=== PATIENT | male | born 1940 | race Caucasian/White ===

== ENCOUNTER → 2016-12-19 | Outpatient (CLI) | payer OTHER ==
[~2016-12-19] MED LIST: AMIT25TA19 PO; AMIT50TA3 PO; ASPUNK PO; CLOP1TAB15 PO; CZR25 PO; DICL1GEL12 TOP; DICL3GEL TOP; GLC500 PO; IBUP-1105 PO; MELA1CAP PO; METO50TA7 PO; MISCCAP PO; MULT-884 PO; NITR0.4S UT; OMEG435C PO; POTA12PO5 PO; SIMV80TA2 PO; [UNRECOGNIZED DRUG - CODE] PO
[2016-12-19 13:40] LABS: BASO ABS # 0.05 K/uL (0-0.2); COMPLETE YES; EOS % 2.9 %; HEMATOCRIT 42.2 % (42-52); IG% 0.2 %; LYMPH % 31.2 %; LYMPH ABS # 1.52 K/uL (1.2-3.4); MEAN CELL VOLUME 94.6 fL (80-100); MEAN CORPUSCULAR HEMOGLOBIN 32.7 pg (25-34); MEAN CORPUSCULAR HGB CONC 34.6 g/dl (32-36); MEAN PLATELET VOLUME 9.5 fL (7.4-10.4); MONO % 7.4 %; NEUT % 57.3 %; PLATELET COUNT 255 K/uL (130-400); RED BLOOD COUNT 4.46 M/uL (4.7-6.1); WHITE BLOOD COUNT 4.87 K/uL (4.8-10.8)
[2016-12-19 13:44] LABS: ALT/SGPT 31 U/L (12-78); AST/SGOT 17 U/L (15-37); BLOOD UREA NITROGEN 14 mg/dl (7-18); BUN/CREATININE RATIO 15.4 (10-20); CALCIUM 9.6 mg/dl (8.5-10.1); CARBON DIOXIDE 26 mmol/L (21-32); CHLORIDE 106 mmol/L (98-107); CHOLESTEROL 132 mg/dl (0-200); CREATININE 0.92 mg/dl (0.60-1.40); GLUCOSE 76 mg/dl (70-99); POTASSIUM 4.2 mmol/L (3.5-5.1); SODIUM 141 mmol/L (136-145)
[2016-12-19 13:55] LABS: ALB/GLOB RATIO 1.4 (0.9-2); ALKALINE PHOSPHATASE 41 U/L (45-117); CHOLESTEROL/HDL RATIO 2.9; HDL CHOLESTEROL 45 mg/dl; LDL CHOLESTEROL CALCULATED 26 mg/dl; TRIGLYCERIDES 306 mg/dl (0-150); VERY LOW DENSITY LIPOPROT CALC 61 mg/dl
[2016-12-19 14:05] LABS: ESTIMATED AVERAGE GLUCOSE 100 mg/dl; HA1C FLAG Normal (Normal)
--- NOTE | 2016-12-25 09:38 | CODING QUERY MEDICAL NECESSITY ---
SUPPORTING DIAGNOSIS NEEDED A supporting diagnosis is required for the test/procedure performed on this patient in order for us to be reimbursed by the patient's insurance. Please provide a supporting diagnosis for the following test/procedure listed below next to the test name along with your signature. *If there is no additional diagnosis for this patient that would support the following test/procedure please document that below next to the test/procedure. Test(s)/Procedure(s) that require a supporting diagnosis: * GLYCATED HEMOGLOBIN DIAGNOSIS: * DOS: 12/19/16 Provider Signature: Date: Thank you Taniya Gomes Health Information Management Once completed, please kindly fax back to [phone] For questions please call [phone]
== END | disposition home or self-care (01) ==
LOC: C.LABBC 11:46
PROVIDERS: ATTEND Internal Medicine Geriatric Medicine
DX: I25.10 Atherosclerotic heart disease of native coronary artery without angina pectoris (principal); E78.5 Hyperlipidemia, unspecified; M19.90 Unspecified osteoarthritis, unspecified site; I10 Essential (primary) hypertension

== ENCOUNTER 2017-01-27 09:58 | Emergency (ER) | payer OTHER ==
[~2017-01-27] VITALS: Ht 167.6 cm; Wt 97.1 kg
[~2017-01-27 09:58] MED LIST changes: -AMIT50TA3 PO; -CZR25 PO; -DICL3GEL TOP
[2017-01-27 10:03] VITALS: TEMP 36.3; Ht 167.6 cm; Wt 97.1 kg
[2017-01-27 10:41] LABS: BASO % 0.9 %; BASO ABS # 0.04 K/uL (0-0.2); COMPLETE YES; EOS % 2.6 %; HEMATOCRIT 41.7 % (42-52); LYMPH % 33.7 %; LYMPH ABS # 1.44 K/uL (1.2-3.4); MEAN CELL VOLUME 92.7 fL (80-100); MEAN CORPUSCULAR HGB CONC 34.5 g/dl (32-36); MEAN PLATELET VOLUME 9.1 fL (7.4-10.4); MONO % 8.4 %; NEUT % 54.4 %; PLATELET COUNT 231 K/uL (130-400); WHITE BLOOD COUNT 4.27 K/uL (4.8-10.8)
[2017-01-27] MEDS ORDERED: CZR25 PO (11:01)
[2017-01-27] MEDS ORDERED: DICL3GEL TOP (11:01)
[2017-01-27] MEDS ORDERED: AMIT50TA3 PO (11:01)
[2017-01-27 11:02] LABS: ALT/SGPT 38 U/L (12-78); BLOOD UREA NITROGEN 12 mg/dl (7-18); BUN/CREATININE RATIO 13.1 (10-20); CALCIUM 9.2 mg/dl (8.5-10.1); CARBON DIOXIDE 26 mmol/L (21-32); CHLORIDE 105 mmol/L (98-107); CREATININE 0.93 mg/dl (0.60-1.40); GLUCOSE 86 mg/dl (70-99); POTASSIUM 4.1 mmol/L (3.5-5.1); SODIUM 141 mmol/L (136-145)
--- NOTE | 2017-01-27 11:04 | DIAGNOSTIC IMAGING REPORT ---
SINGLE VIEW CHEST CLINICAL HISTORY: Atypical chest pain. FINDINGS: An AP, portable, upright chest radiograph is obtained. No prior studies are available for comparison at the time of dictation. The examination is degraded by portable technique and patient rotation. The heart is enlarged and there is atherosclerotic calcification with uncoiling of the thoracic aorta. The pulmonary vasculature is noncongested. There is bibasilar atelectasis. The lungs and pleural spaces are otherwise clear. No pneumothorax is seen. The skeletal structures are osteopenic. The bony thorax is grossly intact. IMPRESSION: Cardiac enlargement with no acute cardiopulmonary abnormality. Electronically signed by: Jose Francisco Dale M.D. 01/27/2017 11:03 AM Dictated Date/Time: 01/27/2017 11:01 AM
[2017-01-27 11:07] LABS: ALKALINE PHOSPHATASE 41 U/L (45-117); AST/SGOT 21 U/L (15-37); CKMB/CK RATIO 2.4 (0-3.0)
[2017-01-27 13:02] VITALS: BP 139/94; PULSE 69; O2SAT 93
--- NOTE | 2017-01-27 13:39 | EMERGENCY ROOM VISIT NOTE ---
History Report prepared by Juhi: Dayana Arredondo Under the Supervision of: Dr. Josey Solorzano D.O. First contact with patient: 10:12 Chief Complaint: CARDIAC ASSESSMENT Stated Complaint: CHEST PAIN Nursing Triage Summary: Triage Note: Pt reports he has slight pain in his chest at approx 0900 today and took 1 nitro at home. pt reports hx of two stents. History of Present Illness The patient is a 76 year old male who presents to the Emergency Room with complaints of resolved chest pain which started this morning. He reports that he was vacuuming when he felt 2 sharp pains in his chest around 0900, which was followed by discomfort in his chest. At the worse, he rates his discomfort at a 4/10. He took a nitro at 0915, which lessened his discomfort, and decided to present to the ED. He rates his discomfort upon arrival at the hospital as a 2/ 10. He is currently experiencing no chest discomfort. He reports that the last time he took a nitro was 15 years ago. He has had 2 stents placed in the early and has had no hospitalizations for his heart since. He reports that he regularly works out and experiences no discomfort with exertion. He denies any nausea, diaphoresis, fever, chills, cough, abdominal pain, or increased swelling of the hands or feet. He is on blood thinners. He has had a negative treadmill stress test with Dr. Encarnacion in the last 6 months. Source of History: patient Onset: 0900 this morning Position: chest Symptom Intensity: 4/10 at worst Quality: other (sharp, then discomfort) Timing: resolved Associated Symptoms: No abdominal pain, No chills, No cough, No diaphoresis , No fevers, No nausea Note: Pt denies increased swelling of the hands or feet. Review of Systems See HPI for pertinent positives & negatives. A total of 10 systems reviewed and were otherwise negative. Past Medical & Surgical Medical Problems: (1) CAD (coronary artery disease) (2) Cervical radiculopathy (3) Dyslipidemia (4) HTN (hypertension) (5) Lumbar radiculopathy (6) Osteoarthritis (7) Prostate cancer Surgical Problems: (1) History of angioplasty (2) History of hemorrhoidectomy Family History Diabetes mellitus Heart disease Hypertension Social History Smoking Status: Never Smoker Alcohol Use: occasionally Marital Status: Housing Status: lives with family Occupation Status: retired Current/Historical Medications Scheduled Amitriptyline Hcl (Amitriptyline Hcl), 50 MG PO DAILY Aspirin (Aspirin Unknown Dose), 81 MG PO DAILY Clopidogrel (Plavix), 75 MG PO DAILY Diclofenac Sodium (Actinic Ker (Solaraze), 0.5 GM TOP BID Ibuprofen (Ibuprofen), 400 MG PO HS Losartan Potassium (Losartan Potassium), 25 MG PO DAILY Metformin Hcl (Glucophage *), 1,000 MG PO BID Metoprolol Succ (Toprol Xl) (Toprol-Xl), 50 MG PO DAILY Misc Natural Products (Saw [place] Plus), 2 CAP PO DAILY Multiple Vitamin (Multi Vitamin Daily), PO DAILY Nitroglycerin (Nitrostat), 0.4 MG UT PRN [place]-3 Fatty Acids (Fish Oil Concentrate), 1 CAP PO DAILY Potassium Chloride (Klor-Con), 20 MEQ PO DAILY Simvastatin (Zocor), 80 MG PO QAM Scheduled PRN Melatonin (Melatonin), PO HS PRN for Sleep Allergies Coded Allergies: Niacin (Unverified Allergy, Mild, FROM MED RECORD DR SIMS, 01/27/17) Lactose (Unverified Allergy, Unknown, MED RECORD, 01/27/17) Physical Exam Vital Signs Date Time Temp Pulse Resp B/P Pulse Ox O2 Delivery O2 Flow Rate FiO2 01/27/17 13:02 69 18 139/94 93 01/27/17 12:09 69 01/27/17 11:02 72 20 122/95 94 Room Air 01/27/17 10:12 72 01/27/17 10:03 36.3 74 18 154/94 96 Room Air Physical Exam HEENT: Head - normocephalic and atraumatic Pupils are equal, round, and reactive to light. Extraocular eye muscles are intact, and sclera are anicteric. Nose - moist nasal mucosa without discharge. Mouth - moist buccal mucosa. Oropharynx is nonerythematous and there is no tonsillar exudate or edema noted. Neck: Supple; no JVD, nuchal rigidity, cervical lymphadenopathy, or auscultated bruits. Heart: Regular rate and rhythm. There is a normal S1 and S2 with no murmurs, clicks, or gallops appreciated. Lungs: Clear to auscultation bilaterally with no wheezes, rales, or rhonchi. Abdomen: Soft, completely nontender, nondistended, with good bowel sounds. There are no palpable pulsatile masses or hepatosplenomegaly. There is no guarding, rigidity, or rebound noted. Extremities: No evidence of cyanosis, clubbing, or edema. There are easily palpable peripheral pulses. Skin: warm and dry with good turgor and no rashes. Medical Decision & Procedures ER Provider Diagnostic Interpretation: X-ray results as stated below per interpretation by me and the radiologist: SINGLE VIEW CHEST CLINICAL HISTORY: Atypical chest pain. FINDINGS: An AP, portable, upright chest radiograph is obtained. No prior studies are available for comparison at the time of dictation. The examination is degraded by portable technique and patient rotation. The heart is enlarged and there is atherosclerotic calcification with uncoiling of the thoracic aorta. The pulmonary vasculature is noncongested. There is bibasilar atelectasis. The lungs and pleural spaces are otherwise clear. No pneumothorax is seen. The skeletal structures are osteopenic. The bony thorax is grossly intact. IMPRESSION: Cardiac enlargement with no acute cardiopulmonary abnormality. Electronically signed by: Jose Francisco Dale M.D. 01/27/2017 11:03 AM Dictated Date/Time: 01/27/2017 11:01 AM Laboratory Results 01/27/17 10:20 Red Blood Count 4.50, Mean Corpuscular Volume 92.7, Mean Corpuscular Hemoglobin 32.0, Mean Corpuscular Hemoglobin Concent 34.5, Mean Platelet Volume 9.1, Neutrophils (%) (Auto) 54.4, Lymphocytes (%) (Auto) 33.7, Monocytes (%) (Auto) 8.4, Eosinophils (%) (Auto) 2.6, Basophils (%) (Auto) 0.9, Neutrophils # (Auto) 2.32, Lymphocytes # (Auto) 1.44, Monocytes # (Auto) 0.36, Eosinophils # (Auto) 0.11, Basophils # (Auto) 0.04 01/27/17 10:20 Test 01/27/17 10:20 01/27/17 11:50 White Blood Count 4.27 K/uL (4.8-10.8) Red Blood Count 4.50 M/uL (4.7-6.1) Hemoglobin 14.4 g/dL (14.0-18.0) Hematocrit 41.7 % (42-52) Mean Corpuscular Volume 92.7 fL (80-100) Mean Corpuscular Hemoglobin 32.0 pg (25-34) Mean Corpuscular Hemoglobin Concent 34.5 g/dl (32-36) Platelet Count 231 K/uL (130-400) Mean Platelet Volume 9.1 fL (7.4-10.4) Neutrophils (%) (Auto) 54.4 % Lymphocytes (%) (Auto) 33.7 % Monocytes (%) (Auto) 8.4 % Eosinophils (%) (Auto) 2.6 % Basophils (%) (Auto) 0.9 % Neutrophils # (Auto) 2.32 K/uL (1.4-6.5) Lymphocytes # (Auto) 1.44 K/uL (1.2-3.4) Monocytes # (Auto) 0.36 K/uL (0.11-0.59) Eosinophils # (Auto) 0.11 K/uL (0-0.5) Basophils # (Auto) 0.04 K/uL (0-0.2) RDW Standard Deviation 42.1 fL (36.4-46.3) RDW Coefficient of Variation 12.4 % (11.5-14.5) Immature Granulocyte % (Auto) 0.0 % Immature Granulocyte # (Auto) 0.00 K/uL (0.00-0.02) Anion Gap 10.0 mmol/L (3-11) Est Creatinine Clear Calc Drug Dose 76.0 ml/min Estimated GFR () 93.4 Estimated GFR (Non- 80.6 BUN/Creatinine Ratio 13.1 (10-20) Calcium Level 9.2 mg/dl (8.5-10.1) Total Bilirubin 0.7 mg/dl (0.2-1) Direct Bilirubin 0.1 mg/dl (0-0.2) Aspartate Amino Transf (AST/SGOT) 21 U/L (15-37) Alanine Aminotransferase (ALT/SGPT) 38 U/L (12-78) Alkaline Phosphatase 41 U/L (45-117) Total Creatine Kinase 68 U/L (39-308) Creatine Kinase MB 1.6 ng/ml (0.5-3.6) Creatine Kinase MB Ratio 2.4 (0-3.0) Pro-B-Type Natriuretic Peptide 67 pg/ml (0-900) Total Protein 7.0 gm/dl (6.4-8.2) Albumin 4.0 gm/dl (3.4-5.0) Lipase 401 U/L (73-393) Troponin I < 0.015 ng/ml (0-0.045) Laboratory results per my review. ECG Indication: chest pain Rate (beats per minute): 73 Rhythm: normal sinus Findings: no acute ischemic change, no ectopy Comparison ECG Date: October 16, 2003 Change: no significant change ED Course 1022: The patient was evaluated in room A12. A complete history and physical examination were performed. Nursing notes and previous electronic medical records were reviewed. IV lock was established and labs were drawn as above. The patient had a twelve-lead EKG and chest x-ray as described above. 1130: I reevaluated the patient. He is still symptom free. A repeat troponin will be taken in 20 minutes. 1245: I reassessed the patient. He feels fine. Troponin remains negative. I discussed the results and treatment plan with him. He verbalized understanding and agreement. He will be discharged home. Medical Decision The patient is a 76 year old male who presents to the ED with chest discomfort. Differential diagnosis includes angina, ACS, STEMI, GERD, costochondritis, pleurisy. Labs: Normal WBC count. Stable H & H. Lipase mildly elevated at 401. LFTs are normal. Renal function normal. Cardiac enzymes negative. Repeat troponin is negative. This is a 76-year-old male patient who presents to the emergency department with left-sided chest pain. The patient denies any other recent episodes of chest discomfort. 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 The patient had 2 negative troponins. The patient is his EKG is unchanged. I have asked the patient to follow-up with Dr. Encarnacion this week. If the patient has further episodes of chest discomfort, he was directed to use his nitroglycerin and return to the emergency department. Impression Primary Impression: Left sided chest pain Scribe Attestation The scribe's documentation has been prepared under my direction and personally reviewed by me in its entirety. I confirm that the note above accurately reflects all work, treatment, procedures, and medical decision making performed by me. Departure Information Dispostion Home / Self-Care Referrals Oral Sims M.D. (PCP) Forms IMPORTANT VISIT INFORMATION Patient Instructions ED Chest Pain Atypical [facility] Cause, [facility] Additional Instructions Rest. If chest pain or pressure starts again, take Nitro every 5 minutes. Up to 3. If pain continues, call 911. Follow up with Dr. Encarnacion this week.
== END 2017-01-27 13:03 | disposition home or self-care (01) ==
LOC: C.EDB 09:59 → C.EDA 13:03
DX: R07.9 Chest pain, unspecified (principal); I25.10 Atherosclerotic heart disease of native coronary artery without angina pectoris; I10 Essential (primary) hypertension; E78.5 Hyperlipidemia, unspecified; M54.12 Radiculopathy, cervical region; M54.16 Radiculopathy, lumbar region; M19.90 Unspecified osteoarthritis, unspecified site; Z98.61 Coronary angioplasty status; Z79.02 Long term (current) use of antithrombotics/antiplatelets; Z79.1 Long term (current) use of non-steroidal anti-inflammatories (NSAID); Z79.82 Long term (current) use of aspirin; Z79.84 Long term (current) use of oral hypoglycemic drugs; Z79.899 Other long term (current) drug therapy; Z82.49 Family history of ischemic heart disease and other diseases of the circulatory system; Z83.3 Family history of diabetes mellitus

== ENCOUNTER → 2017-02-25 | Outpatient (CLI) | payer OTHER ==
[~2017-02-25] MED LIST changes: -AMIT25TA19 PO; +AMIT50TA3 PO; +CZR25 PO; -DICL1GEL12 TOP; +DICL3GEL TOP; -[UNRECOGNIZED DRUG - CODE] PO
--- NOTE | 2017-03-04 11:45 | CODING QUERY MEDICAL NECESSITY ---
CQSUPPORTING DIAGNOSIS NEEDED A supporting diagnosis is required for the test/procedure performed on this patient in order for us to be reimbursed by the patient's insurance. Please provide a supporting diagnosis for the following test/procedure listed below next to the test name along with your signature. *If there is no additional diagnosis for this patient that would support the following test/procedure please document that below next to the test/procedure. Test(s)/Procedure(s) that require a supporting diagnosis: DOS 02/25/17 PROSTATE SPECIFIC TEST (PSA ) Provider Signature: Date: Thank you Fernanda Wen Health Information Management Once completed, please kindly fax back to [phone] For questions please call [phone]
== END | disposition home or self-care (01) ==
LOC: C.LABBC 13:43
PROVIDERS: ATTEND Urology
DX: R39.9 Unspecified symptoms and signs involving the genitourinary system (principal); C61 Malignant neoplasm of prostate

== ENCOUNTER → 2017-06-18 | Outpatient (CLI) | payer OTHER ==
[2017-06-18 13:52] LABS: BLOOD UREA NITROGEN 15 mg/dl (7-18); BUN/CREATININE RATIO 16.4 (10-20); CALCIUM 9.4 mg/dl (8.5-10.1); CARBON DIOXIDE 23 mmol/L (21-32); CHLORIDE 108 mmol/L (98-107); CHOLESTEROL 115 mg/dl (0-200); GLUCOSE 80 mg/dl (70-99); POTASSIUM 3.9 mmol/L (3.5-5.1); SODIUM 141 mmol/L (136-145); TRIGLYCERIDES 237 mg/dl (0-150); VERY LOW DENSITY LIPOPROT CALC 47 mg/dl
[2017-06-18 13:55] LABS: CHOLESTEROL/HDL RATIO 2.9; HDL CHOLESTEROL 39 mg/dl; LDL CHOLESTEROL CALCULATED 29 mg/dl
== END | disposition home or self-care (01) ==
LOC: C.LABBC 12:00
PROVIDERS: ATTEND Internal Medicine Geriatric Medicine
DX: I10 Essential (primary) hypertension (principal)

== ENCOUNTER → 2017-12-03 | Outpatient (CLI) | payer OTHER | END | disposition home or self-care (01) | LOC: C.LABBC 09:43 | PROVIDERS: ATTEND Urology | DX: C61 Malignant neoplasm of prostate (principal) ==

== ENCOUNTER → 2017-12-19 | Outpatient (CLI) | payer OTHER ==
[2017-12-19 17:35] LABS: BLOOD UREA NITROGEN 13 mg/dl (7-18); CREATININE 0.98 mg/dl (0.60-1.40)
== END | disposition home or self-care (01) ==
LOC: C.LABBC 13:23
PROVIDERS: ATTEND Urology
DX: R97.20 Elevated prostate specific antigen [PSA] (principal)

== ENCOUNTER → 2017-12-30 | Outpatient (CLI) | payer OTHER ==
[~2017-12-30] MED LIST changes: +GADAVIST IV PRN; -METO50TA7 PO; +METO50TA8 PO
--- NOTE | 2017-12-30 15:31 | DIAGNOSTIC IMAGING REPORT ---
PROSTATE MRI COMBO CLINICAL HISTORY: 77 years-old Male presenting with prostate cancer, Needles 3+3 at the left apex from biopsy on 08/11/2015, Elevated PSA. PSA 5.92 ng/mL. TECHNIQUE: Multisequence, multiplanar MR imaging of the prostate was performed before and after the administration of intravenous contrast. Additional postprocessing was performed on a separate [employer] workstation by the radiologist for 3-D volumetric segmentation of the prostate and contouring of region(s) of interest (JULIANNA) for targeting. IV contrast: 9 mL of Gadavist. COMPARISON: None. FINDINGS: Prostate: The prostate measures 6.3 x 4.5 x 5.8 cm(DynaCAD prostate boundary segmentation volume 81 mL). Moderate changes of benign prostatic hyperplasia. Precontrast T1 weighted imaging demonstrates no evidence of intrinsic T1 hyperintensity to suggest hemorrhage. Atrophy of the peripheral zone. Multiple exophytic BPH nodules protrude into the peripheral zone at the prostatic base. Minimal linear T2 hypointense bands in the posterior lateral peripheral zone at the apex are nonspecific and may represent chronic inflammation or scarring. No suspicious lesion is apparent in the transition or peripheral zones. Seminal vesicles normal. Bladder: Bladder wall thickening likely indicating chronic outlet obstruction. Bowel: Visualized portion of the rectum normal. Peritoneum: No free fluid in the pelvis. Lymph nodes: No lymphadenopathy in the visualized portion of the pelvis. Vasculature: Iliac vessels patent. Abdominal wall: Normal. Osseous structures: Normal bone marrow signal intensity. IMPRESSION: 1. No suspicious lesion identified in the peripheral or transition zones. The prostate has been segmented for fusion biopsy. 2. Benign prostatic hyperplasia with evidence of chronic bladder outlet obstruction. Electronically signed by: Santos Beard M.D. 12/30/2017 3:30 PM Dictated Date/Time: 12/30/2017 3:24 PM
== END | disposition home or self-care (01) ==
LOC: C.MRIBC 13:22
PROVIDERS: ATTEND Urology
DX: C61 Malignant neoplasm of prostate (principal); R97.20 Elevated prostate specific antigen [PSA]

== ENCOUNTER → 2018-03-25 | Day surgery (SDC) | payer OTHER ==
[2018-03-14 13:42] VITALS: Ht 166.4 cm; Wt 93.6 kg
[~2018-03-25] VITALS: Ht 166.4 cm; Wt 93.6 kg
[~2018-03-25] MED LIST changes: +ASPI81TA28 PO; -ASPUNK PO; +BCTCR/30 EXT; -CZR25 PO; -DICL3GEL TOP; -GADAVIST IV PRN; -GLC500 PO; +LIDOCAINE HCL 2% 2 ML VIAL (20MG/ML) ONE; +LOSA50TA6 PO; +METF500T5 PO; +POTA-639 PO; -POTA12PO5 PO; +PROPOFOL IV EMULSION 10 MG/ML 20 ML VIAL ONE
--- NOTE | 2018-03-25 09:48 | Endo History and Physical ---
History & Physical Date of Service: March 25, 2018. Chief Complaint: Hx polyps Referring Physician: Oral Sims History of Present Illness 77 yo CM who presents for colonoscopy secondary to history of colon polyps. Past Medical History Angioplasty/Stent, Cancer, Hypertension Past Surgical History Hx Cardiac Surgery: Yes (CARDIAC CATH, CARDIAC STENT X2) Hx Internal Defibrillator: No Hx Pacemaker: No Hx Abdominal Surgery: No Hx of Implantable Prosthesis: No Hx Post-Op Nausea and Vomiting: No Hx Cancer Surgery: No Hx Thoracic Surgery: No Hx Orthopedic: No Hx Urinary Tract Surgery: No Social History Smoking Status: Never Smoker Hx Substance Use: No Hx Alcohol Use: Yes (Scotch 1-2 time per week) Allergies Coded Allergies: Niacin (Verified Allergy, Mild, FROM MED RECORD DR SIMS, 03/14/18) Lactose (Verified Allergy, Unknown, MED RECORD, 03/14/18) Current Medications Reported Home Medications Medications Dose Route/Sig Max Daily Dose Days Date Category Dose Instructions Klor-Con (Potassium Chloride) 20 Meq Tabcr 20 Meq PO DAILY 03/14/18 Reported Bactroban 2% (Mupirocin) 30 Gm Cr 1 Appln EXT UD 03/14/18 Reported Glucophage Er (Metformin HCl) 500 Mg Tab 4 Tab PO DAILY 90 03/14/18 Reported Aspirin Ec (Aspirin) 81 Mg Tab 81 Mg PO DAILY 03/14/18 Reported Cozaar (Losartan Potassium) 50 Mg Tab 1 Tab PO DAILY 30 03/14/18 Reported Amitriptyline Hcl 50 Mg Tab 50 Mg PO HS 01/27/17 Reported Saw [place] Plus ([employer] Natural Products) 1 Cap Cap 2 Cap PO DAILY 01/06/15 Reported Nitrostat (Nitroglycerin) 0.4 Mg Sub 0.4 Mg UT PRN 01/06/15 Reported Multi Vitamin Daily (Multiple Vitamin) 1 Tab Tab PO DAILY 01/06/15 Reported Melatonin 1 Mg Cap PO HS PRN 01/06/15 Reported Ibuprofen 200 Mg Tab 400 Mg PO HS 01/06/15 Reported Fish Oil Concentrate ([place]-3 Fatty Acids) 1 Cap Cap 1 Cap PO DAILY 01/06/15 Reported Toprol-Xl (Metoprolol Succinate) 50 Mg Tabcr 75 Mg PO DAILY 01/28/12 Reported TAKE 1 1/2 TABS DAILY Plavix (Clopidogrel Bisulfate) 75 Mg Tab 75 Mg PO DAILY 01/28/12 Reported Zocor (Simvastatin) 80 Mg Tab 80 Mg PO QAM 01/28/12 Reported Vital Signs Weight (Kilograms): 93.64 Height (Feet): 5 Height (Inches): 5.5 Date Time Temp Pulse Resp B/P (MAP) Pulse Ox O2 Delivery O2 Flow Rate FiO2 03/25/18 09:06 36.6 72 18 139/88 (105) 95 Room Air Physical Exam General Appearance: WD/WN, no apparent distress Respiratory/Chest: Auscultation: breath sounds normal Cardiovascular: Heart Auscultation: RRR Abdomen: Bowel Sounds: normal Inspection & Palpation: soft, non-distended, no tenderness, guarding & rebound Assessment and Plan Assessment: 77 yo CM who presents for colonoscopy secondary to history of colon polyps. Plan: Proceed with colonoscopy.
--- NOTE | 2018-03-25 10:25 | GI REPORT ---
Patient Name: Raúl Zhong Procedure Date: 03/25/2018 9:38 AM Date of : 1940 Admit Type: Outpatient Age: 77 Gender: Male Attending MD: Alberto Ceron DO Procedure: Colonoscopy Providers: Alberto Ceron DO Referring MD: Oral Sims Indications: High risk colon cancer surveillance: Personal history of colonic polyps Medicines: Monitored Anesthesia Care Complications: No immediate complications. Estimated Blood Loss: Estimated blood loss: none. Procedure: Pre-Anesthesia Assessment: - Prior to the procedure, a History and Physical was performed, and patient medications and allergies were reviewed. The patient's tolerance of previous anesthesia was also reviewed. The risks and benefits of the procedure and the sedation options and risks were discussed with the patient. All questions were answered, and informed consent was obtained. Prior Anticoagulants: The patient last took aspirin 1 day and Plavix (clopidogrel) 7 days prior to the procedure. ASA Grade Assessment: III - A patient with severe systemic disease. After reviewing the risks and benefits, the patient was deemed in satisfactory condition to undergo the procedure. After I obtained informed consent, the scope was passed under direct vision. Throughout the procedure, the patient's blood pressure, pulse, and oxygen saturations were monitored continuously. The scope was introduced through the anus and advanced to the terminal ileum. The colonoscopy was performed without difficulty. The patient tolerated the procedure well. The quality of the bowel preparation was good. The terminal ileum, ileocecal valve, appendiceal orifice, and rectum were photographed. Findings: The perianal and digital rectal examinations were normal. A 5 mm polyp was found in the sigmoid colon. The polyp was sessile. The polyp was removed with a hot snare. Resection and retrieval were complete. Multiple small-mouthed diverticula were found in the sigmoid colon. Non-bleeding internal hemorrhoids were found during retroflexion. The hemorrhoids were small. Impression: - One 5 mm polyp in the sigmoid colon, removed with a hot snare. Resected and retrieved. - Diverticulosis in the sigmoid colon. - Non-bleeding internal hemorrhoids. Recommendation: - Resume previous diet. - Continue present medications. - Repeat colonoscopy for surveillance based on pathology results. - Return to primary care physician as previously scheduled. Alberto Ceron DO 03/25/2018 10:25:10 AM This report has been signed electronically. Note Initiated On: 03/25/2018 9:38 AM Number of Addenda: 0 I attest to the content of the Intraoperative Record and orders documented therein, exceptions below {[id number]}
[2018-03-25 10:52] VITALS: BP 149/86; PULSE 67; O2SAT 95
--- NOTE | 2018-03-25 11:04 | Discharge Instructions ---
Endoscopy Patient Instructions Date / Procedure(s) Performed March 25, 2018. Colonoscopy Allergy Information Coded Allergies: Niacin (Verified Allergy, Mild, FROM MED RECORD DR SIMS, 03/14/18) Lactose (Verified Allergy, Unknown, MED RECORD, 03/14/18) Discharge Date / Findings March 25, 2018. Colon polyp Diverticulosis Internal hemorrhoids Medication Instructions Stopped Medication(s): Plavix OK to resume all medications today as prescribed Reported Home Medications Medications Dose Route/Sig Max Daily Dose Days Date Category Dose Instructions Klor-Con (Potassium Chloride) 20 Meq Tabcr 20 Meq PO DAILY 03/14/18 Reported Bactroban 2% (Mupirocin) 30 Gm Cr 1 Appln EXT UD 03/14/18 Reported Glucophage Er (Metformin HCl) 500 Mg Tab 4 Tab PO DAILY 90 03/14/18 Reported Aspirin Ec (Aspirin) 81 Mg Tab 81 Mg PO DAILY 03/14/18 Reported Cozaar (Losartan Potassium) 50 Mg Tab 1 Tab PO DAILY 30 03/14/18 Reported Amitriptyline Hcl 50 Mg Tab 50 Mg PO HS 01/27/17 Reported Saw [place] Plus ([employer] Natural Products) 1 Cap Cap 2 Cap PO DAILY 01/06/15 Reported Nitrostat (Nitroglycerin) 0.4 Mg Sub 0.4 Mg UT PRN 01/06/15 Reported Multi Vitamin Daily (Multiple Vitamin) 1 Tab Tab PO DAILY 01/06/15 Reported Melatonin 1 Mg Cap PO HS PRN 01/06/15 Reported Ibuprofen 200 Mg Tab 400 Mg PO HS 01/06/15 Reported Fish Oil Concentrate ([place]-3 Fatty Acids) 1 Cap Cap 1 Cap PO DAILY 01/06/15 Reported Toprol-Xl (Metoprolol Succinate) 50 Mg Tabcr 75 Mg PO DAILY 01/28/12 Reported TAKE 1 1/2 TABS DAILY Plavix (Clopidogrel Bisulfate) 75 Mg Tab 75 Mg PO DAILY 01/28/12 Reported Zocor (Simvastatin) 80 Mg Tab 80 Mg PO QAM 01/28/12 Reported Provider Instructions Activity Restrictions - No exercising or heavy lifting for 24 hours. - Do not drink alcohol the day of the procedure. - Do not drive a car or operate machinery until the day after the procedure. - Do not make any important decisions or sign important papers in 24 hours after the procedure. Following Day: - Return to full activity which may include returning to work/school. Diet Start your diet with liquids and light foods (jello, soup, juice, toast). Then eat your usual diet if not nauseated. Treatment For Common After Affects For mild abdominal pain, bloating, or excessive gas: - Rest - Eat lightly - Lie on right side Follow-Up Information Follow-up with Oral Sims as scheduled Anesthesia Information What You Should Know You have had a procedure that required some medicine to reduce anxiety and discomfort. This treatment is called moderate sedation. After receiving the treatment, you may be sleepy, but you will be able to breathe on your own. The effects of the treatment may last for several hours. Follow these instructions along with Activity/Diet recommendations noted above: * Do NOT do anything where dizziness or clumsiness would be dangerous. * Rest quietly at home today, then you can be up and about tomorrow. * Have a responsible person stay with you the rest of today. * You may have had an I.V. today. If so, you may take the dressing off later today. Recommendations Call your doctor if: * Trouble breathing * Continuous vomiting for more than 24 hours * Temperature above 101 degrees * Severe abdominal pain or bloating * Pain not relieved by pain medicine ordered * There is increased drainage or redness from any incision * A large amount of rectal bleeding greater than 2-3 tablespoons. (If you had a polyp/s removed or have hemorrhoids, a small amount of blood - from the rectum is to be expected.) * You have any unanswered questions or concerns. IN THE EVENT OF A SERIOUS EMERGENCY, GO TO THE NEAREST EMERGENCY ROOM Your discharge instructions were prepared by provider Alberto Ceron. Patient Instructions Signature Page Raúl Zhong Patient (or Guardian) Signature/Date: I have read and understand the instructions given to me by my caregivers. Caregiver/RN/Doctor Signature/Date: The above-named patient and/or guardian has received patient instructions on this date. + Original Patient Signature Page (only) stays with chart. Please make copy for patient.
--- NOTE | 2018-03-25 11:19 | Anesthesiology Progress Note ---
Anesthesia Post Op Note Date & Time March 25, 2018 at 11:19 Vital Signs Pain Intensity: 0 Vital Signs Past 12 Hours Date Time Temp Pulse Resp B/P (MAP) Pulse Ox O2 Delivery O2 Flow Rate FiO2 03/25/18 10:52 67 16 149/86 (107) 95 Room Air 03/25/18 10:37 67 16 138/84 (102) 95 Room Air 03/25/18 10:23 66 16 134/86 (102) 96 Room Air 03/25/18 09:06 36.6 72 18 139/88 (105) 95 Room Air Notes Mental Status: alert / awake / arousable, participated in evaluation Pt Amnestic to Procedure: Yes Nausea / Vomiting: adequately controlled Pain: adequately controlled Airway Patency, RR, SpO2: stable & adequate BP & HR: stable & adequate Hydration State: stable & adequate Anesthetic Complications: no major complications apparent
== END | disposition home or self-care (01) ==
LOC: C.GI 08:35
PROVIDERS: ATTEND Internal Medicine
DX: Z12.11 Encounter for screening for malignant neoplasm of colon (principal); Z86.010 Personal history of colon polyps; D12.5 Benign neoplasm of sigmoid colon; K57.30 Diverticulosis of large intestine without perforation or abscess without bleeding; K64.8 Other hemorrhoids; G47.33 Obstructive sleep apnea (adult) (pediatric); I25.10 Atherosclerotic heart disease of native coronary artery without angina pectoris; M19.90 Unspecified osteoarthritis, unspecified site; Z85.46 Personal history of malignant neoplasm of prostate; I10 Essential (primary) hypertension; Z79.82 Long term (current) use of aspirin; Z79.84 Long term (current) use of oral hypoglycemic drugs; Z79.02 Long term (current) use of antithrombotics/antiplatelets; Z79.899 Other long term (current) drug therapy

== ENCOUNTER → 2018-06-05 | Outpatient (CLI) | payer OTHER ==
[~2018-06-05] MED LIST changes: -LIDOCAINE HCL 2% 2 ML VIAL (20MG/ML) ONE; -PROPOFOL IV EMULSION 10 MG/ML 20 ML VIAL ONE
--- NOTE | 2018-06-05 14:45 | DIAGNOSTIC IMAGING REPORT ---
CHEST 2 VIEWS ROUTINE HISTORY: COUGH COMPARISON: Chest 01/27/2017. FINDINGS: No pneumothorax. No pleural effusions. There are low lung volumes. The heart remains top normal in size. No focal lung consolidations to suggest pneumonia. No evidence for pulmonary edema. IMPRESSION: No significant change compared to the prior study. No acute process. Electronically signed by: Horacio Mazariegos M.D. 06/05/2018 2:44 PM Dictated Date/Time: 06/05/2018 2:42 PM
== END | disposition home or self-care (01) ==
LOC: C.RADBC 14:10
PROVIDERS: ATTEND Internal Medicine Geriatric Medicine
DX: R05 Cough (principal)

== ENCOUNTER 2023-05-29 04:51 | Inpatient (IN) ==
[2023-05-29] MEDS ORDERED: NITROGLYCERIN 2% OINTMENT 30GM TUBE EXT ONE (05:18)
[2023-05-29] MEDS ORDERED: ONDANSETRON INJ 2 MG/ML 2 ML VIAL IV STA (05:18)
[2023-05-29] MEDS ORDERED: MoRPHine SULFATE 4 MG/ML 1 ML CARP\\VIAL IV PRN (05:18)
[2023-05-29 05:45] LABS: Albumin Globulin Ratio 2.6 (0.9-2); Albumin Level 4.2 gm/dl (3.4-5.0); BUN Creatinine Ratio 21.8 (10-20); Bilirubin,Total 0.6 mg/dl (0.2-1.0); Calcium 8.5 mg/dl (8.6-10.3); Creatinine Clr Calc Pharmacy 70.7 ml/min; Est GFR (African American) 94.5 ml/min; Est GFR (Non-African American) 81.5 ml/min; Globulin 1.6 gm/dl (2.5-4.0); Potassium 3.6 mmol/L (3.5-5.1); Total Protein 5.8 gm/dl (6.0-8.3)
[2023-05-29 05:52] LABS: Troponin I High Sensitivity 6.8 pg/ml (0-20)
[2023-05-29] MEDS ORDERED: niCARdipine HCL INJ 2.5 MG/ML 10 ML AMP ONE (05:55)
[2023-05-29] MEDS ORDERED: HEPARIN (PORCINE) 1000 UNIT/ML 10 ML (CATH LAB USE ONLY) ONE (05:55)
[2023-05-29 05:56] LABS: Basophils # (auto) 0.09 K/uL (0-0.2); Basophils % (auto) 1.6 %; Eosinophils # (auto) 0.44 K/uL (0-0.50); Eosinophils % (auto) 7.7 %; Hematocrit (blood only) 39.1 % (42.0-52.0); Hemoglobin 13.2 g/dl (14.0-18.0); Immature Granulocytes # (auto) 0.01 K/uL (0.01-0.20); Immature Granulocytes % (auto) 0.2 %; Lymphocytes # (auto) 1.64 K/uL (1.2-3.4); Lymphocytes % (auto) 28.5 %; Mean Corpuscular Hemoglobin 33.1 pg (25.0-34.0); Mean Corpuscular Hgb Conc 33.8 g/dL (32.0-36.0); Mean Platelet Volume 8.9 fL (9.4-12.4); Monocytes # (auto) 0.34 K/uL (0.11-0.59); Monocytes % (auto) 5.9 %; Neutrophils # (auto) 3.23 K/uL (1.40-6.50); Neutrophils % (auto) 56.1 %; Platelet Count 200 K/uL (130-400); RDW Coefficient of Variation 12.7 % (11.5-14.5); RDW Standard Deviation 45.5 fL (36.4-46.3); Red Blood Count 3.99 M/uL (4.70-6.10); White Blood Count 5.75 K/ul (4.8-10.8)
[2023-05-29] MEDS ORDERED: NITROGLYCERIN/D5W 100MCG/ML 20ML SYR ONE (05:56)
[2023-05-29] MEDS ORDERED: MIDAZOLAM HCL 1 MG/ML 2ML VIAL ONE ×2 (05:56→06:45)
[2023-05-29] MEDS ORDERED: fentaNYL citrate PF 100 MCG/2 ML VIAL ONE ×2 (05:56→08:00)
[2023-05-29 05:57] LABS: iSTAT Hemoglobin 12.9 g/dl (14.0-18.0); iSTAT Ionized Calcium 1.2 mmol/l (1.12-1.32); iSTAT Potassium 3.8 mmol/L (3.3-5.0)
[2023-05-29 06:08] LABS: Partial Thromboplastin Ratio 0.9; Prothrombin Time 11.4 Seconds (9.0-12.0)
--- NOTE | 2023-05-29 06:08 | Emergency Department Note ---
History of Present Illness General Chief complaint: Chest Pain Stated complaint: Chest Pain Time Seen by Provider: 05/29/23 05:14 History of Present Illness Maximum Pain Intensity: 3 This is an 82-year-old male presenting to the emergency department via EMS for evaluation of chest heaviness. The patient states that he awoke around 4 AM with 3/10 discomfort. He has a history of coronary artery disease and had a stent placed approximately 30 years ago. He does follow with [facility] for cardiology and Romi Smith for his family doctor. The patient did take 324 mg aspirin at home with EMS, and took a single nitroglycerin which did not seem to significantly help his symptoms. He does not have any shortness of breath or radiation of pain. No head, neck, or abdominal discomfort. No recent fevers or chills. No recent travel history. He lives at home with his . Home Medications Medication Instructions Recorded Confirmed Type aspirin 81 mg tablet,delayed 81 mg PO HS 01/27/19 05/29/23 History release (Aspir-Low) clopidogrel 75 mg tablet (Plavix) 75 mg PO QAM 01/27/19 05/29/23 History saw palmetto 500 mg capsule 1 cap PO BID 01/27/19 05/29/23 History diclofenac sodium 1 % topical gel 2 g topical BID 11/27/19 05/29/23 History dorzolamide 2 % eye drops See Rx Instructions ophthalmic 01/14/20 05/29/23 History (eye) BID losartan 100 mg tablet 100 mg PO QAM 04/18/20 05/29/23 History multivitamin (Daily Multi-Vitamin 1 tab PO QAM 11/21/20 05/29/23 History tablet) omega-3 fatty acids 1,000 mg 1,000 mg PO QAM 11/21/20 05/29/23 History capsule (Fish Oil Concentrate) cyanocobalamin (vitamin B-12) 1,000 mcg IM MONTHLY #1 mL 02/15/21 05/29/23 Rx 1,000 mcg/mL injection solution polyethylene glycol 3350 17 17 g PO DAILY 05/11/21 05/29/23 History gram/dose oral powder (Miralax) simvastatin 80 mg tablet 80 mg PO QPM 05/11/21 05/29/23 History acetaminophen 325 mg capsule 325 mg PO BID fever or pain 08/28/21 05/29/23 History (Tylenol) cholecalciferol (vitamin D3) 50 50 mcg PO DAILY #30 caps 10/09/21 05/29/23 Rx mcg (2,000 unit) capsule melatonin 1 mg tablet 1 mg PO HS PRN Sleep 11/07/21 05/29/23 History spironolactone 25 mg tablet 25 mg PO DAILY 06/05/22 05/29/23 History metoprolol succinate 100 mg 100 mg PO QAM #90 tabs 12/19/22 05/29/23 Rx tablet,extended release 24 hr carbidopa 25 mg-levodopa 100 mg 2 tab PO TID 90 days #540 tabs 02/19/23 05/29/23 Rx tablet (Sinemet) carbidopa ER 50 mg-levodopa 200 mg 1 tab PO HS 90 days #90 tabs 03/11/23 05/29/23 Rx tablet,extended release potassium chloride 20 mEq 20 meq PO QAM #90 tabs 05/09/23 05/29/23 Rx tablet,extended release tamsulosin 0.4 mg capsule 0.4 mg PO DAILY #90 caps 05/14/23 05/29/23 Rx doxepin 10 mg capsule 20 mg PO PM 05/29/23 05/29/23 History nitroglycerin 0.4 mg sublingual 0.4 mg sublingual UD PRN Chest Pain 05/29/2311/09 History tablet Allergies Allergy/AdvReac Type Severity Reaction Status Date / Time niacin Allergy Mild FROM MED Verified 05/29/23 07:[address] FATIMA lactose Allergy Unknown MED RECORD Verified 05/29/23 07:41 duloxetine [From Cymbalta] AdvReac Mild poor Verified 05/29/23 07:41 balance mirabegron [From Myrbetriq] AdvReac dizziness Verified 05/29/23 07:41 Past Med/Surg History Medical History 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 Shashank Ross CAD (coronary artery disease) Cancer PROSTATE CANCER (BEING MONITORED) Cervical radiculopathy Disorder of kidney and ureter, unspecified HTN (hypertension) Hyperlipidemia Hypertension Idiopathic polyneuropathy Lumbar radiculopathy Lumbar spinal stenosis Osteoarthritis Parkinsons disease Resting tremor Sleep apnea MILD (NO DEVICE NEEDED)> lost weight has helped Syndrome X, metabolic Thoracic aortic aneurysm checked approx 2x per year> follows Dr. Encarnacion pt unaware of size Tubular adenoma of colon 1 cm tubular adenoma removed during colonoscopy (03/02), 3 year follow-up recommended (03/05). Colonoscopy on 04/04 demonstrated tubular adenoma in the sigmoid colon. Repeat colonoscopy was recommended in 5 years (03/10). Surgical History H/O spinal fusion (~03/2020) L3-5 laminectomy with spinal fusion History of angioplasty approx 20 yrs ago History of cardiac cath CHEST PAIN (2 CATHS) History of colonoscopy History of heart artery stent X 2 (LAST STENT PLACED 1999) History of hemorrhoidectomy History of nasal surgery SINUS SURGERY History of skin cancer with removal from face History of tonsillectomy History of tonsillectomy History of tooth extraction Family History Father , 75 CHF Family history of diabetes mellitus Congestive heart failure Diabetes Hypertension Grandfather (Paternal) Diabetes Brother Obesity Urinary calculus Impaired fasting glucose Mother , age 85 aspiration Hypertension Denies family history of Ovarian cancer Prostate cancer Myocardial infarction Breast cancer Lung cancer Colorectal cancer Stroke Social History Smoking Status: Light tobacco smoker Tobacco Type: Cigars Age Started Using Tobacco: 26; Cigarettes Per Day: cigar approx q4 weeks; Second Hand Exposure: No; Do You Dip or Chew Tobacco: No; Hx Alcohol Use: Yes Alcohol type: hard liquor Alcohol Intake Frequency: 2-4 x/Month Alcohol Intake Frequency Comment: 2 drinks of scotch per month Hx Substance Use: No Preferred Language: Ethiopian Communication Ability: Effective Visual Impairment: Limited Hearing Ability: Use of Hearing Aid 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 Required: No Beliefs That Will Affect Care: None marital status: Current Living Situation: Spouse current occupational status: retired 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 [employer] How many Children do You have: 3 other: 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[facility] David Feels Safe at Home: Yes Childhood Exposure to Second-Hand Smoke: No caffeine: Yes Dental Care, Regularly: Yes Physical Activity Frequency: Does not Exercise Seatbelt Use: always Sunscreen Use: No Assistive Devices: Cane, Glasses and Hearing Aid - Bilateral Review of Systems A total of 10 systems reviewed and were otherwise negative Physical Exam Vital Signs Vital Signs - 24 hr 05/29/23 04:55 05/29/23 05:01 05/29/23 04:56 Temperature 36.8 C Temperature Source Oral Pulse Rate 56 L 61 Pulse Rate [Apical] Pulse Rate from SpO2 Sensor Pulse Rhythm [Apical] Pulse Strength [Apical] Respiratory Rate 20 Respiratory Effort / Characteristics Respiratory Depth Blood Pressure 117/62 Blood Pressure [Left Arm] Blood Pressure Mean 80 Blood Pressure Mean [Left Arm] Blood Pressure Position [Left Arm] Pulse Oximetry 93 92 Oxygen Delivery Method Room Air Room Air Sepsis Recent Fever Within 48 Hours No Sepsis New/Unexplained Change in Mental Status No Sepsis Action Taken by Nursing No Action Required 05/29/23 05:06 05/29/23 06:06 05/29/23 04:55 Temperature Temperature Source Pulse Rate 60 Pulse Rate [Apical] Pulse Rate from SpO2 Sensor Pulse Rhythm [Apical] Pulse Strength [Apical] Respiratory Rate 17 Respiratory Effort / Characteristics Respiratory Depth Blood Pressure Blood Pressure [Left Arm] Blood Pressure Mean Blood Pressure Mean [Left Arm] Blood Pressure Position [Left Arm] Pulse Oximetry 98 Oxygen Delivery Method Room Air Room Air Sepsis Recent Fever Within 48 Hours Sepsis New/Unexplained Change in Mental Status Sepsis Action Taken by Nursing 05/29/23 05:00 05/29/23 05:30 05/29/23 05:55 Temperature Temperature Source Pulse Rate 63 59 L 67 Pulse Rate [Apical] Pulse Rate from SpO2 Sensor 62 59 L 56 L Pulse Rhythm [Apical] Pulse Strength [Apical] Respiratory Rate 21 14 Respiratory Effort / Characteristics Respiratory Depth Blood Pressure Blood Pressure [Left Arm] Blood Pressure Mean Blood Pressure Mean [Left Arm] Blood Pressure Position [Left Arm] Pulse Oximetry 93 95 94 Oxygen Delivery Method Sepsis Recent Fever Within 48 Hours Sepsis New/Unexplained Change in Mental Status Sepsis Action Taken by Nursing 05/29/23 05:55 05/29/23 05:56 05/29/23 05:56 Temperature Temperature Source Pulse Rate 61 Pulse Rate [Apical] Pulse Rate from SpO2 Sensor 60 Pulse Rhythm [Apical] Pulse Strength [Apical] Respiratory Rate Respiratory Effort / Characteristics Respiratory Depth Blood Pressure 137/85 131/80 Blood Pressure [Left Arm] Blood Pressure Mean 102 97 Blood Pressure Mean [Left Arm] Blood Pressure Position [Left Arm] Pulse Oximetry 97 Oxygen Delivery Method Sepsis Recent Fever Within 48 Hours Sepsis New/Unexplained Change in Mental Status Sepsis Action Taken by Nursing 05/29/23 06:00 05/29/23 06:01 05/29/23 06:01 Temperature Temperature Source Pulse Rate 62 63 Pulse Rate [Apical] Pulse Rate from SpO2 Sensor 61 63 Pulse Rhythm [Apical] Pulse Strength [Apical] Respiratory Rate Respiratory Effort / Characteristics Respiratory Depth Blood Pressure 140/93 Blood Pressure [Left Arm] Blood Pressure Mean 108 Blood Pressure Mean [Left Arm] Blood Pressure Position [Left Arm] Pulse Oximetry 95 95 Oxygen Delivery Method Sepsis Recent Fever Within 48 Hours Sepsis New/Unexplained Change in Mental Status Sepsis Action Taken by Nursing 05/29/23 08:10 05/29/23 08:49 05/29/23 08:56 Temperature 36.8 C Temperature Source Oral Pulse Rate 62 Pulse Rate [Apical] 59 L 62 Pulse Rate from SpO2 Sensor 62 Pulse Rhythm [Apical] Regular Regular Pulse Strength [Apical] Normal Normal Respiratory Rate 18 18 16 Respiratory Effort / Characteristics Non-Labored Non-Labored Respiratory Depth Normal Normal Blood Pressure Blood Pressure [Left Arm] 129/69 123/80 Blood Pressure Mean Blood Pressure Mean [Left Arm] 89 94 Blood Pressure Position [Left Arm] Sitting Pulse Oximetry 95 95 96 Oxygen Delivery Method Room Air Room Air Sepsis Recent Fever Within 48 Hours Sepsis New/Unexplained Change in Mental Status Sepsis Action Taken by Nursing 05/29/23 09:00 05/29/23 09:00 05/29/23 08:53 Temperature 36.8 C Temperature Source Oral Pulse Rate 62 Pulse Rate [Apical] Pulse Rate from SpO2 Sensor 61 Pulse Rhythm [Apical] Pulse Strength [Apical] Respiratory Rate 17 Respiratory Effort / Characteristics Respiratory Depth Blood Pressure 127/82 Blood Pressure [Left Arm] Blood Pressure Mean 86 Blood Pressure Mean [Left Arm] Blood Pressure Position [Left Arm] Pulse Oximetry 95 Oxygen Delivery Method Sepsis Recent Fever Within 48 Hours Sepsis New/Unexplained Change in Mental Status Sepsis Action Taken by Nursing 05/29/23 09:15 05/29/23 09:15 05/29/23 09:30 Temperature Temperature Source Pulse Rate 62 Pulse Rate [Apical] Pulse Rate from SpO2 Sensor 61 Pulse Rhythm [Apical] Pulse Strength [Apical] Respiratory Rate 18 Respiratory Effort / Characteristics Respiratory Depth Blood Pressure 129/83 115/82 Blood Pressure [Left Arm] Blood Pressure Mean 94 89 Blood Pressure Mean [Left Arm] Blood Pressure Position [Left Arm] Pulse Oximetry 95 Oxygen Delivery Method Sepsis Recent Fever Within 48 Hours Sepsis New/Unexplained Change in Mental Status Sepsis Action Taken by Nursing 05/29/23 09:30 05/29/23 09:45 05/29/23 09:45 Temperature Temperature Source Pulse Rate 58 L 59 L Pulse Rate [Apical] Pulse Rate from SpO2 Sensor 56 L 56 L Pulse Rhythm [Apical] Pulse Strength [Apical] Respiratory Rate 23 25 H Respiratory Effort / Characteristics Respiratory Depth Blood Pressure 124/79 Blood Pressure [Left Arm] Blood Pressure Mean 85 Blood Pressure Mean [Left Arm] Blood Pressure Position [Left Arm] Pulse Oximetry 96 98 Oxygen Delivery Method Sepsis Recent Fever Within 48 Hours Sepsis New/Unexplained Change in Mental Status Sepsis Action Taken by Nursing 05/29/23 10:00 05/29/23 10:00 Temperature Temperature Source Pulse Rate 58 L Pulse Rate [Apical] Pulse Rate from SpO2 Sensor 57 L Pulse Rhythm [Apical] Pulse Strength [Apical] Respiratory Rate 20 Respiratory Effort / Characteristics Respiratory Depth Blood Pressure 130/77 Blood Pressure [Left Arm] Blood Pressure Mean 83 Blood Pressure Mean [Left Arm] Blood Pressure Position [Left Arm] Pulse Oximetry 98 Oxygen Delivery Method Sepsis Recent Fever Within 48 Hours Sepsis New/Unexplained Change in Mental Status Sepsis Action Taken by Nursing VITALS: Vitals are noted on the nurse's note and reviewed by myself. Vital signs stable. GENERAL: Very pleasant white male who appears in no acute distress. HEAD: Normocephalic atraumatic. . NECK: Supple without nuchal rigidity. No lymphadenopathy. No thyromegaly. Cervical spine is nontender. HEART: Regular rate and rhythm with LUNGS: Clear to auscultation bilaterally without wheezes, rales or rhonchi. No retractions or accessory muscle use. ABDOMEN: Positive normal bowel sounds x 4. Soft, nontender, without masses or organomegaly. No guarding or rebound tenderness. MUSCULOSKELETAL: No muscle atrophy, erythema, or edema noted. Full range of motion in all extremities. Course Administered Medications Discontinued Medications Carbidopa/Levodopa (Carbidopa/Levodopa 25/100mg Tab) 2 tab PO ONE STA Stop: 05/29/23 10:50 Last Admin: 05/29/23 11:17 Dose: 2 tab Documented By: LURDES Fentanyl Citrate (Fentanyl Citrate Pf 100 Mcg/2 Ml Vial) Confirm Administered Dose 100 mcg .ROUTE .STK-MED ONE Stop: 05/29/23 05:57 Last Admin: 05/29/23 10:15 Dose: Not Given Documented By: Danelle Fentanyl Citrate (Fentanyl Citrate Pf 100 Mcg/2 Ml Vial) Confirm Administered Dose 100 mcg .ROUTE .STK-MED ONE Stop: 05/29/23 08:01 Last Admin: 05/29/23 10:15 Dose: Not Given Documented By: Danelle Heparin Sodium (Porcine) (Heparin (Porcine) 1000 Unit/Ml 10 Ml (Biomedical Service Engineer Use Only)) Confirm Administered Dose 10,000 units .ROUTE .STK-MED ONE Stop: 05/29/23 05:56 Last Admin: 05/29/23 10:15 Dose: Not Given Documented By: Danelle Heparin Sodium/Sodium Chloride (Heparin In Nss Infusion 1000 Unit/500 Ml (2 U/Ml) Bag) Confirm Administered Dose 4,000 units IV .STK-MED ONE Stop: 05/29/23 05:57 Last Admin: 05/29/23 10:15 Dose: Not Given Documented By: Danelle Heparin Sodium/Dextrose (Heparin Sodium/Dextrose) 25,000 units in 500 mls @ 18 mls/hr IV .Q24H ANGEL; Protocol Stop: 06/28/23 10:29 Last Admin: 05/29/23 12:32 Dose: 850 units/hr, 17 mls/hr Documented By: Danelle Co-signed By: ISMAEL Nitroglycerin/Dextrose (Nitroglycerin/D5w 100 Mcg/Ml) 250 mls @ 12 mls/hr IV .[id number] ANGEL; Protocol Stop: 06/28/23 10:44 Last Titration: 05/29/23 11:45 Dose: 20 mcg/min, 12 mls/hr Documented By: Titration: 05/29/23 11:30 Dose: 15 mcg/min, 9 mls/hr Documented By: Danelle Titration: 05/29/23 11:15 Dose: 10 mcg/min, 6 mls/hr Documented By: N Admin: 05/29/23 10:54 Dose: 5 mcg/min, 3 mls/hr Documented By: N Co-signed By: BRUNO Lidocaine HCl (Lidocaine 1% Local 20 Ml Vial) Confirm Administered Dose 40 ml .ROUTE .STK-MED ONE Stop: 05/29/23 09:34 Last Admin: 05/29/23 10:37 Dose: Not Given Documented By: Danelle Midazolam HCl (Midazolam Hcl 1 Mg/Ml 2ml Vial) Confirm Administered Dose 2 mg .ROUTE .STK-MED ONE Stop: 05/29/23 05:57 Last Admin: 05/29/23 10:15 Dose: Not Given Documented By: Danelle Midazolam HCl (Midazolam Hcl 1 Mg/Ml 2ml Vial) Confirm Administered Dose 2 mg .ROUTE .STK-MED ONE Stop: 05/29/23 06:46 Last Admin: 05/29/23 10:15 Dose: Not Given Documented By: Danelle Morphine Sulfate (Morphine Sulfate 4 Mg/Ml 1 Ml Carp\Vial) 4 mg IV Q30M PRN PRN Reason: Pain Stop: 06/12/23 05:17 Last Admin: 05/29/23 05:39 Dose: 4 mg Documented By: LOS Nicardipine HCl (Nicardipine Hcl Inj 2.5 Mg/Ml 10 Ml Amp) Confirm Administered Dose 25 mg .ROUTE .STK-MED ONE Stop: 05/29/23 05:56 Last Admin: 05/29/23 10:15 Dose: Not Given Documented By: LURDES Nitroglycerin (Nitroglycerin 2% Ointment 30gm Tube) 1 inch EXT NOW ONE Stop: 05/29/23 05:19 Last Admin: 05/29/23 05:38 Dose: 1 inch Documented By: LOS Nitroglycerin/Dextrose (Nitroglycerin/D5w 100mcg/Ml 20ml Syr) Confirm Admini stered Dose 2,000 mcg .ROUTE .STK-MED ONE Stop: 05/29/23 05:57 Last Admin: 05/29/23 10:37 Dose: Not Given Documented By: Danelle Ondansetron HCl (Ondansetron Inj 2 Mg/Ml 2 Ml Vial) 4 mg IV NOW STA Stop: 05/29/23 05:19 Last Admin: 05/29/23 05:39 Dose: 4 mg Documented By: LOS Potassium Chloride (Potassium Chloride Crtab 20 Meq Tabcr) 20 meq PO NOW STA Stop: 05/29/23 10:59 Last Admin: 05/29/23 11:17 Dose: 20 meq Documented By: LURDES Critical Care Time I have personally spent greater than 30 minutes of critical care time in the direct management of this patient. This includes bedside care, interpretation of diagnostic studies, and testing, discussion with consultants, patient, and family members, and other required patient management activities. This 30 minutes is in excess of all separately billable procedures. Medical Decision Making Differential Diagnosis Differential diagnosis includes, but is not limited to: Myocardial infarction, dysrhythmia, pericarditis, pneumothorax, aortic aneurysm/dissection, DVT/PE, anxiety, GERD, PUD, electrolyte imbalance, thyroid disorder, pneumonia, bronchitis, pancreatitis, and others Laboratory Data 05/29/23 05:42 05/29/23 05:14 Lab Results 05/29/23 05/29/23 05/29/23 Range/Units 05:14 05:14 05:37 WBC Cancelled RBC Cancelled Hgb Cancelled POC Hgb (14.0-18.0) g/dl Hct Cancelled POC Hct (42-52) % MCV Cancelled MCH Cancelled MCHC Cancelled RDW Std Deviation Cancelled RDW Coeff of Joe Cancelled Plt Count Cancelled MPV Cancelled Immature Gran % (Auto) Cancelled Neut % (Auto) Cancelled Lymph % (Auto) Cancelled [place] % (Auto) Cancelled Eos % (Auto) Cancelled Baso % (Auto) Cancelled Neut # (Auto) Cancelled Lymph # (Auto) Cancelled [place] # (Auto) Cancelled Eos # (Auto) Cancelled Baso # (Auto) Cancelled Immature Gran # (Auto) Cancelled Absolute Nucleated RBC Cancelled Nucleated RBC % (auto) Cancelled Neutrophils % (Manual) Cancelled Band Neutrophils % Cancelled Lymphocytes % (Manual) Cancelled Prolymphocyte % Cancelled Reactive Lymphs % (Man) Cancelled Monocytes % (Manual) Cancelled Eosinophils % (Manual) Cancelled Basophils % (Manual) Cancelled Metamyelocytes % (Man) Cancelled Myelocytes % (Man) Cancelled Promyelocytes % (Man) Cancelled Blast Cells % (Manual) Cancelled Plasma Cell % (Manual) Cancelled Other Cells % Cancelled Nucleated RBC % Cancelled Neutrophils # (Manual) Cancelled Band Neutrophils # Cancelled Total Absolute Neuts Cancelled Lymphocytes # (Manual) Cancelled Prolymphocyte # Cancelled Reactive Lymphs # Cancelled Total Abs Lymphocytes Cancelled Monocytes # (Manual) Cancelled Eosinophils # (Manual) Cancelled Basophils # (Manual) Cancelled Metamyelocytes # (Man) Cancelled Myelocytes # (Manual) Cancelled Promyelocytes # (Man) Cancelled Blast Cells # (Man) Cancelled Plasma Cell # (Manual) Cancelled Other Cells # Cancelled Nucleated RBCs # (Man) Cancelled Hypersegmented Neuts Cancelled Hyposegmented Neuts Cancelled Hypogranular Neuts Cancelled Large Granular Lymphs Cancelled # Lrg Granular Lymphs Cancelled Hairy Cells Cancelled Smudge Cells Cancelled Toxic Granulation Cancelled Toxic Vacuolation Cancelled Dohle Bodies Cancelled John Rods Cancelled Platelet Estimate Cancelled Hypogranular Platelets Cancelled Giant Platelets Cancelled Platelet Satelliting Cancelled RBC Morphology Cancelled Polychromasia Cancelled Hypochromasia Cancelled Poikilocytosis Cancelled Basophilic Stippling Cancelled Anisocytosis Cancelled Microcytosis Cancelled Macrocytosis Cancelled Spherocytes Cancelled Pappenheimer Bodies Cancelled Sickle Cells Cancelled Target Cells Cancelled Tear Drop Cells Cancelled Ovalocytes Cancelled Stomatocytes Cancelled [place] Bodies Cancelled Echinocytes Cancelled Acanthocytes (Spur) Cancelled Rouleaux Cancelled RBC Agglutinates Cancelled Schistocytes Cancelled Sezary Cell Cancelled PT (9.0-12.0) Seconds INR (0.9-1.1) APTT (21.0-31.0) Seconds PTT Ratio Activ Coag Time Kaolin (94-140) SECONDS POC Sodium (135-144) mmol/L Sodium 140 (136-145) mmol/L POC Potassium (3.3-5.0) mmol/L Potassium 3.6 (3.5-5.1) mmol/L POC Chloride (101-112) mmol/L Chloride 111 H (98-107) mmol/L Carbon Dioxide 22 (21-32) mmol/L POC Total CO2 (24-31) mmol/L Anion Gap 7 (3-11) POC Anion Gap (16-25) mmol/L POC BUN (7-18) mg/dl BUN 19 (6-23) mg/dl Creatinine 0.87 (0.6-1.4) mg/dl POC Creatinine (0.6-1.3) mg/dl Est Cr Clr Drug Dosing 70.7 ml/min Est GFR ( Amer) 94.5 ml/min Est GFR (Non-Af Amer) 81.5 ml/min BUN/Creatinine Ratio 21.8 H (10-20) Glucose 123 H (70-99(Fasting)) mg/dl POC Glucose (other) (70-99) mg/dl Calcium 8.5 L (8.6-10.3) mg/dl POC Ioniz Calcium [place] (1.12-1.32) mmol/l Total Bilirubin 0.6 (0.2-1.0) mg/dl AST 15 (13-39) U/L ALT 4 L (7-52) U/L Alkaline Phosphatase 36 (34-104) U/L Troponin I High Sens 6.8 (0-20) pg/ml Total Protein 5.8 L (6.0-8.3) gm/dl Albumin 4.2 (3.4-5.0) gm/dl Globulin 1.6 L (2.5-4.0) gm/dl Albumin/Globulin Ratio 2.6 H (0.9-2) Lipase 50 (11-82) U/L SARS-CoV-2, RNA, NAAT NEGATIVE (NEGATIVE) Blood Parasites ID Cancelled 05/29/23 05/29/23 05/29/23 Range/Units 05:42 05:42 05:44 WBC 5.75 RBC 3.99 L Hgb 13.2 L POC Hgb 12.9 L (14.0-18.0) g/dl Hct 39.1 L POC Hct 38 L (42-52) % MCV 98.0 MCH 33.1 MCHC 33.8 RDW Std Deviation 45.5 RDW Coeff of Joe 12.7 Plt Count 200 MPV 8.9 L Immature Gran % (Auto) 0.2 Neut % (Auto) 56.1 Lymph % (Auto) 28.5 [place] % (Auto) 5.9 Eos % (Auto) 7.7 Baso % (Auto) 1.6 Neut # (Auto) 3.23 Lymph # (Auto) 1.64 [place] # (Auto) 0.34 Eos # (Auto) 0.44 Baso # (Auto) 0.09 Immature Gran # (Auto) 0.01 Absolute Nucleated RBC Nucleated RBC % (auto) Neutrophils % (Manual) Band Neutrophils % Lymphocytes % (Manual) Prolymphocyte % Reactive Lymphs % (Man) Monocytes % (Manual) Eosinophils % (Manual) Basophils % (Manual) Metamyelocytes % (Man) Myelocytes % (Man) Promyelocytes % (Man) Blast Cells % (Manual) Plasma Cell % (Manual) Other Cells % Nucleated RBC % Neutrophils # (Manual) Band Neutrophils # Total Absolute Neuts Lymphocytes # (Manual) Prolymphocyte # Reactive Lymphs # Total Abs Lymphocytes Monocytes # (Manual) Eosinophils # (Manual) Basophils # (Manual) Metamyelocytes # (Man) Myelocytes # (Manual) Promyelocytes # (Man) Blast Cells # (Man) Plasma Cell # (Manual) Other Cells # Nucleated RBCs # (Man) Hypersegmented Neuts Hyposegmented Neuts Hypogranular Neuts Large Granular Lymphs # Lrg Granular Lymphs Hairy Cells Smudge Cells Toxic Granulation Toxic Vacuolation Dohle Bodies John Rods Platelet Estimate Hypogranular Platelets Giant Platelets Platelet Satelliting RBC Morphology Polychromasia Hypochromasia Poikilocytosis Basophilic Stippling Anisocytosis Microcytosis Macrocytosis Spherocytes Pappenheimer Bodies Sickle Cells Target Cells Tear Drop Cells Ovalocytes Stomatocytes [place] Bodies Echinocytes Acanthocytes (Spur) Rouleaux RBC Agglutinates Schistocytes Sezary Cell PT 11.4 (9.0-12.0) Seconds INR 1.0 (0.9-1.1) APTT 24.0 (21.0-31.0) Seconds PTT Ratio 0.9 Activ Coag Time Kaolin (94-140) SECONDS POC Sodium 141 (135-144) mmol/L Sodium (136-145) mmol/L POC Potassium 3.8 (3.3-5.0) mmol/L Potassium (3.5-5.1) mmol/L POC Chloride 105 (101-112) mmol/L Chloride (98-107) mmol/L Carbon Dioxide (21-32) mmol/L POC Total CO2 21 L (24-31) mmol/L Anion Gap (3-11) POC Anion Gap 20.0 (16-25) mmol/L POC BUN 19 H (7-18) mg/dl BUN (6-23) mg/dl Creatinine (0.6-1.4) mg/dl POC Creatinine 1.0 (0.6-1.3) mg/dl Est Cr Clr Drug Dosing ml/min Est GFR ( Amer) ml/min Est GFR (Non-Af Amer) ml/min BUN/Creatinine Ratio (10-20) Glucose (70-99(Fasting)) mg/dl POC Glucose (other) 135 H (70-99) mg/dl Calcium (8.6-10.3) mg/dl POC Ioniz Calcium [place] 1.20 (1.12-1.32) mmol/l Total Bilirubin (0.2-1.0) mg/dl AST (13-39) U/L ALT (7-52) U/L Alkaline Phosphatase (34-104) U/L Troponin I High Sens (0-20) pg/ml Total Protein (6.0-8.3) gm/dl Albumin (3.4-5.0) gm/dl Globulin (2.5-4.0) gm/dl Albumin/Globulin Ratio (0.9-2) Lipase (11-82) U/L SARS-CoV-2, RNA, NAAT (NEGATIVE) Blood Parasites ID 05/29/23 05/29/23 Range/Units 07:29 07:56 WBC RBC Hgb POC Hgb (14.0-18.0) g/dl Hct POC Hct (42-52) % MCV MCH MCHC RDW Std Deviation RDW Coeff of Joe Plt Count MPV Immature Gran % (Auto) Neut % (Auto) Lymph % (Auto) [place] % (Auto) Eos % (Auto) Baso % (Auto) Neut # (Auto) Lymph # (Auto) [place] # (Auto) Eos # (Auto) Baso # (Auto) Immature Gran # (Auto) Absolute Nucleated RBC Nucleated RBC % (auto) Neutrophils % (Manual) Band Neutrophils % Lymphocytes % (Manual) Prolymphocyte % Reactive Lymphs % (Man) Monocytes % (Manual) Eosinophils % (Manual) Basophils % (Manual) Metamyelocytes % (Man) Myelocytes % (Man) Promyelocytes % (Man) Blast Cells % (Manual) Plasma Cell % (Manual) Other Cells % Nucleated RBC % Neutrophils # (Manual) Band Neutrophils # Total Absolute Neuts Lymphocytes # (Manual) Prolymphocyte # Reactive Lymphs # Total Abs Lymphocytes Monocytes # (Manual) Eosinophils # (Manual) Basophils # (Manual) Metamyelocytes # (Man) Myelocytes # (Manual) Promyelocytes # (Man) Blast Cells # (Man) Plasma Cell # (Manual) Other Cells # Nucleated RBCs # (Man) Hypersegmented Neuts Hyposegmented Neuts Hypogranular Neuts Large Granular Lymphs # Lrg Granular Lymphs Hairy Cells Smudge Cells Toxic Granulation Toxic Vacuolation Dohle Bodies John Rods Platelet Estimate Hypogranular Platelets Giant Platelets Platelet Satelliting RBC Morphology Polychromasia Hypochromasia Poikilocytosis Basophilic Stippling Anisocytosis Microcytosis Macrocytosis Spherocytes Pappenheimer Bodies Sickle Cells Target Cells Tear Drop Cells Ovalocytes Stomatocytes Singh-[place] Bodies Echinocytes Acanthocytes (Spur) Rouleaux RBC Agglutinates Schistocytes Sezary Cell PT (9.0-12.0) Seconds INR (0.9-1.1) APTT (21.0-31.0) Seconds PTT Ratio Activ Coag Time Kaolin 143 H 233 H (94-140) SECONDS POC Sodium (135-144) mmol/L Sodium (136-145) mmol/L POC Potassium (3.3-5.0) mmol/L Potassium (3.5-5.1) mmol/L POC Chloride (101-112) mmol/L Chloride (98-107) mmol/L Carbon Dioxide (21-32) mmol/L POC Total CO2 (24-31) mmol/L Anion Gap (3-11) POC Anion Gap (16-25) mmol/L POC BUN (7-18) mg/dl BUN (6-23) mg/dl Creatinine (0.6-1.4) mg/dl POC Creatinine (0.6-1.3) mg/dl Est Cr Clr Drug Dosing ml/min Est GFR ( Amer) ml/min Est GFR (Non-Af Amer) ml/min BUN/Creatinine Ratio (10-20) Glucose (70-99(Fasting)) mg/dl POC Glucose (other) (70-99) mg/dl Calcium (8.6-10.3) mg/dl POC Ioniz Calcium Zurdo (1.12-1.32) mmol/l Total Bilirubin (0.2-1.0) mg/dl AST (13-39) U/L ALT (7-52) U/L Alkaline Phosphatase (34-104) U/L Troponin I High Sens (0-20) pg/ml Total Protein (6.0-8.3) gm/dl Albumin (3.4-5.0) gm/dl Globulin (2.5-4.0) gm/dl Albumin/Globulin Ratio (0.9-2) Lipase (11-82) U/L SARS-CoV-2, RNA, NAAT (NEGATIVE) Blood Parasites ID Imaging Data Radiologist's Impression: Chest X-Ray 05/29/23 05:06 XR chest 1V portable HISTORY: Chest pain, nonspecific COMPARISON: None. FINDINGS: No pneumothorax. No pleural effusions. A few bibasilar linear densities favor subsegmental atelectasis. Otherwise, lungs are clear. No evidence for pulmonary edema. The heart is normal in size. This mildly tortuous thoracic aorta. There are low lung volumes. Degenerative changes noted within the shoulders. IMPRESSION: No acute process. ACT 112: Negative or not required by law. Electronically signed by: Horacio Mazariegos M.D. 05/29/2023 7:29 AM ECG Data Additional Comments: EKG#1 29-MAY-2023 04:58:31 Sinus bradycardia with 1st degree A-V block with occasional Premature ventricular complexes @59 bpm Right bundle branch block Nonspecific T wave abnormality When compared with ECG of 10-OCT-2020 17:42, Premature ventricular complexes are now Present MA interval has increased EKG#2 29-MAY-2023 05:28:49 Sinus bradycardia with 1st degree A-V block @57 bpm Non-specific intra-ventricular conduction block ST elevation consider inferior injury or acute infarct ACUTE VT / STEMI Consider right ventricular involvement in acute inferior infarct When compared with ECG of 29-MAY-2023 04:58, Premature ventricular complexes are no longer Present MDM Narrative Physical exam and history were performed. Nursing notes, EMR, and Medication List were personally reviewed. No social concerns were identified as barriers to patients care. Patient appears to have chest heaviness that began about 1 hour prior to arrival. IV access was established and labs were obtained. Patient was gently hydrated with normal saline. He was already given aspirin prehospital and Nitropaste was applied here. He has persistent chest pain and was ordered IV morphine. An order was placed for continuous cardiac monitoring. The monitor shows a rate of 60 with normal sinus rhythm. Patient's blood work is as above and was reviewed. He does not have a significantly elevated white blood cell count, gross anemia, bandemia, or significant electrolyte imbalance. Transaminases are at diagnostic. Troponin x 1 is negative. Chest x-ray was reviewed by zahraelf and radiology showing no acute process. On initial arrival to the ER the patient was misregistered. Case management was aware of this, and was able to provide to me outpatient cardiac notes as well as [facility] EKG from last month. Compared to his initial EKG here, there appeared to be changes. I did repeat EKG here roughly 30 minutes after the initial, and despite a normal troponin, has clear ST elevation on his second EKG. Heart alert was initiated and case was discussed with my attending, Dr. Solorzano, who remained involved in care and decision making. Biomedical Service Engineer team was able to rapidly assess the patient at bedside and take the patient to the Biomedical Service Engineer. Please see their dictation for further patient course, plan, disposition. The chart was completed utilizing [employer] Speech Voice Recognition Software. Grammatical errors, random word insertions, pronoun errors, and incomplete sentences are an occasional consequence of this system due to software limitations, ambient noise, and hardware issues. Any formal questions or concerns about the content, text, or information contained within the body of this dictation should be directly addressed to the provider for clarification. . Impression & Plan Acute ST elevation myocardial infarction (STEMI) of inferior wall, STEMI (ST elevation myocardial infarction) Discharge Plan Visit Data Chief Complaint: Chest Pain Stated Complaint: Chest Pain ED Provider: Josey Solorzano ED Midlevel Provider: Lionel Ramos Discharge Problem: Acute ST elevation myocardial infarction (STEMI) of inferior wall, STEMI (ST elevation myocardial infarction) Patient Disposition: Admitted As Inpatient Discharge Instructions Interventions: ED Discharge Assessment Last Done: 05/29/23 06:06
--- NOTE | 2023-05-29 07:30 | XRay Report ---
XR chest 1V portable HISTORY: Chest pain, nonspecific COMPARISON: None. FINDINGS: No pneumothorax. No pleural effusions. A few bibasilar linear densities favor subsegmental atelectasis. Otherwise, lungs are clear. No evidence for pulmonary edema. The heart is normal in size . This mildly tortuous thoracic aorta. There are low lung volumes. Degenerative changes noted within the shoulders. IMPRESSION: No acute process. ACT 112: Negative or not required by law. Electronically signed by: Horacio Mazariegos M.D. 05/29/2023 7:29 AM
--- NOTE | 2023-05-29 08:12 | Pre Anesthesia Assessment ---
Date of Service May 29, 2023 Pre Sedation Assessment Vital Signs Temp Pulse Resp BP Pulse Ox O2 Del Method 05/29/23 06:01 140/93 05/29/23 06:01 63 95 05/29/23 06:00 62 95 05/29/23 05:56 131/80 05/29/23 05:56 61 97 05/29/23 05:55 137/85 05/29/23 05:55 67 94 05/29/23 05:30 59 L 14 95 05/29/23 05:00 63 21 93 05/29/23 04:55 60 17 05/29/23 06:06 Room Air 05/29/23 05:06 98 Room Air 05/29/23 04:56 61 05/29/23 05:01 92 Room Air 05/29/23 04:55 36.8 C 56 L 20 117/62 93 Room Air Cardiovascular RRR, no murmur, no edema (Systolic murmur) Respiratory normal respiratory effort, lungs clear to auscultation Pre-Sedation Airway Assessment Smoking Status: Current some day smoker Mallampati 3 ASA 4 Notes The planned sedation has been discussed with the patient. Informed Consent was obtained. I have identified the patient, determined the appropriateness of sedation and have assessed the patient immediately prior to the procedure. All medicine(s) and interventions are by my order.
--- NOTE | 2023-05-29 08:16 | Post Anesthesia Assessment ---
Date of Service May 29, 2023 Post Sedation Assessment Vital Signs Temp Pulse Resp BP Pulse Ox O2 Del Method 05/29/23 06:01 140/93 05/29/23 06:01 63 95 05/29/23 06:00 62 95 05/29/23 05:56 131/80 05/29/23 05:56 61 97 05/29/23 05:55 137/85 05/29/23 05:55 67 94 05/29/23 05:30 59 L 14 95 05/29/23 05:00 63 21 93 05/29/23 04:55 60 17 05/29/23 06:06 Room Air 05/29/23 05:06 98 Room Air 05/29/23 04:56 61 05/29/23 05:01 92 Room Air 05/29/23 04:55 36.8 C 56 L 20 117/62 93 Room Air Recovery Score Activity: Moves 4 extremities Respiration: Deep Breath/Cough Circulation: +/-20% PreAnes Value Consciousness: Fully Awake Oxygen Saturation: > 92% On Room Air Discharge Sedation Level of Care: Fast Track Phase II Post Sedation Plan On clinical assessment, the patient appears to have tolerated the sedation without complications. Patient is recovering as anticipated. Patient will continue to be monitored by nursing and may be discharged when sedation discharge criteria are met per below protocol. Upon Completions of procedure up to 15 minutes continue every 5 minute vital signs and the P.A.R. score; then discharge to a Phase I or Fast Track to Phase II per the following guidelines: * Discharge Patient to appropriate Phase II area if PAR is 8 or greater or return to pre- procedure baseline. The post - procedure orders will be as directed. * If PAR score is less than 8 or not return to pre-procedure baseline then patient will follow Phase I monitoring till PAR is reached for Phase II. The Phase I may be done in procedure room or may call to secure a Phase I area. * If naloxone or flumazenil are used for reversal, hold in Phase I for continued monitoring from when last reversal dose was given for a minimum of 60 minutes or longer pending the nurse and/or physician discretion of patient condition before discharge to Phase II. Please call the Sedation Physician to re-evaluate and complete post-note for discharge to Phase II area. Do NOT discharge from procedure sedation or Phase 1 until post- sedation evaluation note is complete by procedure /sedation MD Sedation Discharge Instructions to be given to the patient at discharge to home. [facility] Procedure Codes (Charges) Indication for Procedure Indication for procedure: STEMI Sedation/Anesthesia Procedure 1: Sedation/Anesthesia: 65692 Mod Sedation by the same physician;Init15 Min Child Age 5 & Up (Start 0613) Total Sedation Time (minutes): 103 Procedure 2: Sedation/Anesthesia: 51309 Mod Sedation by the same physician; Ea [id number] Minutes (Additional 88 min, and 0756) Total Sedation Time (minutes): 103
--- NOTE | 2023-05-29 08:42 | Cardiac Catheterization ---
[facility] Data: Project Program Manager Cardiac Status Clinical evaluation leading to the procedure CAD Presenation: STEMI Anginal Classification: CCS IV Heart Failure: No Cardiogenic Shock within 24 Hours: No Cardiac Arrest within 24 Hours: No STEMI OR Non-STEMI Symptom Onset Date: 05/29/23 Symptom Onset Time: 04:00 Thrombolytics: No Coronary Anatomy Dominant: Right Left Main (% Stenosis): Normal (Diffuse mild) LAD (% Stenosis): Distal (Focal 60 to 70%) and Normal (Diffuse calcification, diffuse mild to moderate) D1 (% Stenosis): Normal D2 (% Stenosis): Normal D3 (% Stenosis): Normal Circumflex (% Stenosis): Normal (Diffuse mild) OM1 (% Stenosis): Normal (Diffuse mild) OM2 (% Stenosis): Normal (Diffuse mild) L PL1 (% Stenosis): Normal RCA (% Stenosis): Proximal (Severe calcification and tortuosity, diffuse mild to moderate), Mid (Severe calcification and tortuosity, diffuse mild to moderate) and Distal (100% occlusion, thrombosis) Diagnostic Physicians Name: Lionel Baxter MD, PhD Closure Device Percutaneous Entry Location: Radial followed by femoral Closure Device: Angio-Seal and Radial Band Recommendations: Medical Therapy and/or Counseling PCI Indication: PCI for STEMI - Stable First Noted: Subsequent EKG Reason For Delay in PCI:: Difficult vascular access, could not cross lesion Lesion Segment Name: Distal RCA Culprit Artery: Yes Pre-Procedure SANTOS Flow: 0 Thrombus Present: Yes Guidewire Across Lesion: No Cardiac Cath Procedure Full Procedure Date May 29, 2023 Pre-Procedure Diagnosis Pre-Procedure Diagnosis: STEMI AUC Score AUC Score: 09 Post-Procedure Diagnosis Post-Procedure Diagnosis: Severe CAD and Unsuccessful PCI Procedure(s) Performed Procedure(s) Performed: Coronary Angiography, Ultrasound Guided Vascular Access and Femoral Artery Angiography Digital Solution Architect Lionel Baxter MD, PhD Estimated Blood Loss Estimated Blood Loss: 30 mL Medication(s) Medication(s): Fentanyl, Heparin, Lidocaine 1%, Nicardipine, Nitroglycerin and Versed Summary of Findings Brief description: Patient was brought to the cardiac catheterization suite where he was shaved and prepped sterile fashion. Sedated using IV Versed and fentanyl. Soft tissues of the right wrist were anesthetized using 2 mils of 1% Xylocaine. Using ultrasound for guidance, the right radial artery was accessed and a 6 Estonian radial artery glide sheath was placed. Patient was provided antispasmodics including nicardipine and nitroglycerin. We attempted to advance diagnostic catheter to the coronaries. However, patient has severe tortuosity and it was clear that the catheters would not be able to be utilized for diagnostic or interventional purposes. Therefore, catheters and wires were removed. We abandoned radial artery approach and moved to the femoral artery approach. Soft tissues of the right groin were anesthetized using 10 mL of 1% Xylocaine. Using ultrasound for guidance, the right femoral artery is accessed and a 6 Estonian femoral artery sheath was placed. However, patient has severe tortuosity in the femoral and iliac arteries up into the aorta. We therefore exchanged the standard 6 Estonian femoral artery sheath for a long femoral artery sheath. Ho wever, this could not traverse the most tortuous portion of the iliac and therefore it was exchanged for a 6 Estonian 45 cm destination catheter. Then, we were able to advance the 5 Estonian JL 4 catheter which was clearly not large enough given the dilated ascending aorta. We then exchanged for a 5 Estonian JL 5 diagnostic catheter but this was also too small. Patient was provided IV heparin and the ACT was intermittently checked throughout the case to assure adequate anticoagulation. Additional heparin was provided as needed. We then advanced a 6 Estonian JR4 guide catheter over the J-wire. However, because of tortuosity and the angle of the RCA takeoff it was clear that the J- wire would be inadequate for maneuvering the catheter. Instead, the J-wire was exchanged for an Amplatz stiff wire. The JR4 would not engage the right coronary despite it now being able to be torqued adequately. We exchanged for a 6F 3DRC catheter and we were able to perform angiography. However, when trying to advance a BMW universal guidewire through this guide catheter the tortuosity of the RCA prevented stable engagement. The BMW universal guidewire was removed. The 3 DRC guide catheter was removed and a 6 Estonian RBU guide catheter was attempted to engage the right coronary. This catheter did not have the right geometry and therefore was exchanged for a 6 Estonian AR-1 guide catheter. This catheter was able to engage the right coronary. We again advanced a BMW universal guidewire and again, because of tortuosity and calcification in the RCA, the guide catheter would not remain engaged at the ostium. We reengaged and advanced a BMW universal guidewire partially into the RCA. We were then able to advance a guide liner catheter to the proximal portion of the RCA. This allowed the BMW guidewire to go a bit further down the RCA but not far enough to cross the lesion. The catheter, guide liner, and guidewire became disengaged from the coronary. Everything was then removed. We next advanced a 5 Estonian JL 6 diagnostic catheter over the guidewire and engaged the left main coronary. Multiple angio graphic views of the left coronary system were obtained. Diagnostic catheter was removed. Decision was made for 1 final attempt at crossing the RCA lesion. The 6 Estonian AR-1 guide catheter was advanced over the Amplatz catheter and used to engage the right coronary artery. Then, a run-through guidewire was advanced and was able to pass the early portion of the occluded vessel. However, attempts to advance the guide liner in order to provide backup for balloon catheter delivery resulted in loss of engagement. It was evident that there was low likelihood that we would be able to perform PTCA and near 0 likelihood that a stent would be able to be delivered. The patient was not having any chest discomfort and we had utilized significant amount of radiation and contrast in the case thus far. We therefore aborted further attempts at PCI of the RCA. The coronary guidewire, guide liner, and guide catheter were all removed from the patient. The destination catheter was exchanged over the Amplatz wire for a 6 Estonian femoral artery sheath. Limited femoral artery angiography was then performed. Findings were favorable, therefore, the femoral artery sheath was exchanged for a 6 Estonian Angio-Seal closure device. This was deployed in the recommended fashion. We had decent hemostasis and applied manual pressure for 5 minutes. Patient was hemodynamically stable and asymptomatic. He was returned to the recovery area. This ended the case. Coronary angiography findings: [id number] vessel bifurcating into LAD and LCx. Mild calcification and diffuse mild disease. LAD-large caliber and transapical. Proximal, mid, and early distal vessel are moderately to severely calcified. There are 3 small to medium caliber diagonal branches. These have diffuse mild disease. The LAD itself has diffuse mild to moderate disease with a focal 60 to 70% stenosis in the distal vessel. LCx-this is large caliber and nondominant. It is mildly calcified proximally. Travels in the AV groove where it gives a large branching OM1 and a medium to large branching OM 2. The vessel then appears to terminate although it does provide an atrial branch and a functional small caliber posterolateral branch arising from the OM 2. There is diffuse mild disease in the circumflex and its branches. [id number] and presumably dominant vessel. It has severe calcification and tortuosity. There is diffuse mild to moderate disease in the proximal and mid vessel. The early distal portion of the vessel is 100% occluded with SANTOS 0 flow and stains with contrast suggesting thrombus. PCI of RCA: Despite exhaustive attempts at crossing the lesion and advancing a PTCA balloon we were unsuccessful in performing PTCA. Summary: 1. Patient has severe calcification and tortuosity of his large peripheral vessels as well as his coronary arteries making vascular access very difficult and coronary catheter manipulation also very difficult. 2. Patient has acute thrombotic occlusion of the distal RCA explaining his ches t pain and EKG changes. Unfortunately, unsuccessful attempts at PCI of this vessel. 3. Patient's left coronary system has mild to moderate disease. There is angiographically borderline disease in the distal LAD which is not the culprit and may be too small for PCI. 4. 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 Further investigation is recommended as there may be an indication for aortic valve/ascending aortic repair. 5. Patient will be admitted to the ICU where heparin will be provided as a drip for 24 hours. He will also be initiated on guideline directed medical therapy for secondary prevention of coronary artery disease. Hemodynamics Rest Ao:: 115/80 mmHg Final Ao: 128/87 mmHg LV: Not performed Recommendations Recommendations: Medical Therapy and/or Counseling Radiation Exposure (mGy) 5221 mGy. Fluoroscopy time 39.2 minutes Contrast (mls) 130 mL Anesthesia 3 mg IV Versed, 75 mcg IV fentanyl. Start time 0613, end time 0756 Procedural Complication(s) None Disposition ICU I attest to the content of the Intraoperative Record and any orders documented therein. Any exceptions are noted below. [facility] [place] Procedure Codes Cardiac Catheterization Procedure 1: Cardiovascular Cath Procedures: 70068 Coronaries Therapeutic Services & Ancillary Procedure 1: Cardiovascular Tx and Anc Procedures: 15989 Ultrasonic Guidance Vascular Access Moderate Sedation Procedure 1: Sedation/Anesthesia: 81274 Mod Sedation by the same physician;Init15 Min Child Age 5 & Up (Initial 15 min, start time 0613) Procedure 2: Sedation/Anesthesia: 24502 Mod Sedation by the same physician; Ea [id number] Minutes (Additional 88 min, end time 0756) PG Care Time/CCT Total # of Minutes Spent Total Time Spent with Patient: Total time spent is greater than 50% in coordination of care (as documented) at patient's floor/unit and/or counseling patient:
[2023-05-29] MEDS ORDERED: LIDOCAINE 1% LOCAL 20 ML VIAL ONE (09:33)
--- NOTE | 2023-05-29 10:21 | History & Physical Report ---
Date of Service May 29, 2023 Assessment & Plan (1) STEMI (ST elevation myocardial infarction): Plan: ASA given via EMS Will defer continuing his clopidogrel vs. switching to Brillinta to [facility] Continuing chest pain s/p unsuccessful STEMI - will start on IV nitroglycerin IV heparin drip orders per interventionalist recommendations Contacted [facility] regarding ongoing chest pain STEMI with unsuccessful PCI for ongoing recommendations and asked to repeat EKG and they will come and see patient. Also updated [facility] to see the patient. Asantae previously not performed - patient did not take any medications this morning. [employer] company contacted to fill this in. Will give his carbidopa/levodopa now Aim K > 4, give 20 meq PO now Aim Mg > 2, no level yet taken on admission, will get level now Troponin q6h TTE Consult [facility] Consult [facility] (2) Parkinsons disease: Plan: Give morning dose of carbidopa/levodopa now, then routine administration. (3) Aortic root enlargement: (4) HTN (hypertension): Plan: Hold all anti-hypertensives at this time due to bradycardia and need for IV nitroglycerin Plan VTE Prophylaxis - IV heparin Diet - NPO Disposition - admit to ICU Admission and Anticipated Discharge Date Admission Date: May 29, 2023 History of Present Illness Chief Complaint: Chest pain Primary Care Provider: Lele Toure DO Raúl Zhong is an 82 year old male who presents to the ER with chest pain. Isaiah lira has known coronary artery disease under [facility] cardiology. Pain started around 4am today. Central substernal 10, no radiation. He called EMS who gave him x4 aspirin and nitroglycerin which did not help his pain. he did not take any of his other usual medications this morning. He was seen in the ER with repeat EKG from 4:58 -> 5:28am showing acute inferior STEMI. 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 PCI to this vessel was unsuccessful. [facility] Hospitalist consulted for admission, initially this was incorrectly placed to the [facility] hospitalist group and I was informed of his admission at 10:07am. After discussion with Dr Baxter regarding heparin drip, this was subsequently ordered with repeat PTT as he had already had a bolus during the cardiac catheterization, other cardiac orders were deferred to [facility] cardiology. Patient was subsequently seen and still having 4/10 chest pain, no different than when he first came to the ER, repeat EKG shows persistent ST elevations in inferior leads. No associated diaphoresis, nausea or presyncope. Nitroglycerin IV drip was ordered as he reported the nitro paste placed prior to cardiac catheterization did initially help (brought pain down to 2/10) and did not cause hypotension. [facility] (Dr Terry) and [facility] (Dr Galeano) were contacted for urgent evaluation as likely patient requires transfer for ongoing care - discussed care at bedside. Allergies Allergy/AdvReac Type Severity Reaction Status Date / Time niacin Allergy Mild FROM MED Verified 05/29/23 07:[address] FATIMA lactose Allergy Unknown MED RECORD Verified 05/29/23 07:41 duloxetine [From Cymbalta] AdvReac Mild poor Verified 05/29/23 07:41 balance mirabegron [From Myrbetriq] AdvReac dizziness Verified 05/29/23 07:41 Home Medications Medication Instructions Recorded Confirmed Type aspirin 81 mg tablet,delayed 81 mg PO HS 01/27/19 05/29/23 History release (Aspir-Low) clopidogrel 75 mg tablet (Plavix) 75 mg PO QAM 01/27/19 05/29/23 History saw palmetto 500 mg capsule 1 cap PO BID 01/27/19 05/29/23 History diclofenac sodium 1 % topical gel 2 g topical BID 11/27/19 05/29/23 History dorzolamide 2 % eye drops See Rx Instructions ophthalmic 01/14/20 05/29/23 History (eye) BID losartan 100 mg tablet 100 mg PO QAM 04/18/20 05/29/23 History multivitamin (Daily Multi-Vitamin 1 tab PO QAM 11/21/20 05/29/23 History tablet) omega-3 fatty acids 1,000 mg 1,000 mg PO QAM 11/21/20 05/29/23 History capsule (Fish Oil Concentrate) cyanocobalamin (vitamin B-12) 1,000 mcg IM MONTHLY #1 mL 02/15/21 05/29/23 Rx 1,000 mcg/mL injection solution polyethylene glycol 3350 17 17 g PO DAILY 05/11/21 05/29/23 History gram/dose oral powder (Miralax) simvastatin 80 mg tablet 80 mg PO QPM 05/11/21 05/29/23 History acetaminophen 325 mg capsule 325 mg PO BID fever or pain 08/28/21 05/29/23 History (Tylenol) cholecalciferol (vitamin D3) 50 50 mcg PO DAILY #30 caps 10/09/21 05/29/23 Rx mcg (2,000 unit) capsule melatonin 1 mg tablet 1 mg PO HS PRN Sleep 11/07/21 05/29/23 History spironolactone 25 mg tablet 25 mg PO DAILY 06/05/22 05/29/23 History metoprolol succinate 100 mg 100 mg PO QAM #90 tabs 12/19/22 05/29/23 Rx tablet,extended release 24 hr carbidopa 25 mg-levodopa 100 mg 2 tab PO TID 90 days #540 tabs 02/19/23 05/29/23 Rx tablet (Sinemet) carbidopa ER 50 mg-levodopa 200 mg 1 tab PO HS 90 days #90 tabs 03/11/23 05/29/23 Rx tablet,extended release potassium chloride 20 mEq 20 meq PO QAM #90 tabs 05/09/23 05/29/23 Rx tablet,extended release tamsulosin 0.4 mg capsule 0.4 mg PO DAILY #90 caps 05/14/23 05/29/23 Rx doxepin 10 mg capsule 20 mg PO PM 05/29/23 05/29/23 History nitroglycerin 0.4 mg sublingual 0.4 mg sublingual UD PRN Chest Pain 05/29/23 05/29/23 History tablet Past Med/Surg History Medical History 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 Shashank Ross CAD (coronary artery disease) Cancer PROSTATE CANCER (BEING MONITORED) Cervical radiculopathy Disorder of kidney and ureter, unspecified HTN (hypertension) Hyperlipidemia Hypertension Idiopathic polyneuropathy Lumbar radiculopathy Lumbar spinal stenosis Osteoarthritis Parkinsons disease Resting tremor Sleep apnea MILD (NO DEVICE NEEDED)> lost weight has helped Syndrome X, metabolic Thoracic aortic aneurysm checked approx 2x per year> follows Dr. Encarnacion pt unaware of size Tubular adenoma of colon 1 cm tubular adenoma removed during colonoscopy (03/02), 3 year follow-up recommended (03/05). Colonoscopy on 04/04 demonstrated tubular adenoma in the sigmoid colon. Repeat colonoscopy was recommended in 5 years (03/10). Surgical History H/O spinal fusion (~03/2020) L3-5 laminectomy with spinal fusion History of angioplasty approx 20 yrs ago History of cardiac cath CHEST PAIN (2 CATHS) History of colonoscopy History of heart artery stent X 2 (LAST STENT PLACED 1999) History of hemorrhoidectomy History of nasal surgery SINUS SURGERY History of skin cancer with removal from face History of tonsillectomy History of tonsillectomy History of tooth extraction Family History Father , 75 CHF Family history of diabetes mellitus Congestive heart failure Diabetes Hypertension Grandfather (Paternal) Diabetes Brother Obesity Urinary calculus Impaired fasting glucose Mother , age 85 aspiration Hypertension Denies family history of Ovarian cancer Prostate cancer Myocardial infarction Breast cancer Lung cancer Colorectal cancer Stroke Social History Smoking Status: Light tobacco smoker Tobacco Type: Cigars Age Started Using Tobacco: 26; Cigarettes Per Day: cigar approx q4 weeks; Second Hand Exposure: No; Do You Dip or Chew Tobacco: No; Tobacco Cessation Education Requested by Patient: No Hx Alcohol Use: Yes Alcohol type: hard liquor Alcohol Intake Frequency: 2-4 x/Month Alcohol Intake Frequency Comment: 2 drinks of scotch per month Hx Substance Use: No Preferred Language: Croatian Communication Ability: Effective Visual Impairment: Limited Hearing Ability: Use of Hearing Aid Inclusion Specialist Required: No Beliefs That Will Affect Care: None marital status: Current Living Situation: Spouse current occupational status: retired 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 [facility] Jose David Feels Safe at Home: Yes Safety Concerns: Feels Safe At This Time Childhood Exposure to Second-Hand Smoke: No caffeine: Yes Dental Care, Regularly: Yes Physical Activity Frequency: Does not Exercise Seatbelt Use: always Sunscreen Use: No Assistive Devices: Cane, Glasses and Hearing Aid - Bilateral Review of Systems Review of Systems: All systems reviewed & are unremarkable except as noted in HPI & below Physical Exam Constitutional: WD/WN, vitals as above Eyes: + anicteric sclerae; normal pupil size Respiratory: normal respiratory effort, lungs clear to auscultation Cardiovascular: Rate/Rhythm: regular rate and regular rhythm Heart Sounds: no murmur Vessels: posterior tibial pulses present and dorsalis pedis pulses present; no JVD Gastrointestinal (Abdomen): normal bowel sounds, soft, nontender, no hepatosplenomegaly Musculoskeletal: no cyanosis or clubbing, extremities motor strength 5/5 Skin: no rashes, warm and dry Neurologic: moves all extremities and awake; not confused Psychiatric: A+Ox3, euthymic affect Results & Data Results & Data Vital Signs (Past 12 Hours) Vital Signs Temp Pulse Pulse Resp BP BP Pulse Ox 05/29/23 10:00 58 L 20 98 05/29/23 10:00 130/77 05/29/23 09:45 59 L 25 H 98 05/29/23 09:45 124/79 05/29/23 09:30 58 L 23 96 05/29/23 09:30 115/82 05/29/23 09:15 62 18 95 05/29/23 09:15 129/83 05/29/23 08:53 36.8 C 05/29/23 09:00 62 17 95 05/29/23 09:00 127/82 05/29/23 08:56 62 16 96 05/29/23 08:49 36.8 C 62 18 123/80 95 05/29/23 08:10 59 L 18 129/69 95 05/29/23 06:01 140/93 05/29/23 06:01 63 95 05/29/23 06:00 62 95 05/29/23 05:56 131/80 05/29/23 05:56 61 97 05/29/23 05:55 137/85 05/29/23 05:55 67 94 05/29/23 05:30 59 L 14 95 05/29/23 05:00 63 21 93 05/29/23 04:55 60 17 05/29/23 06:06 05/29/23 05:06 98 05/29/23 04:56 61 05/29/23 05:01 92 05/29/23 04:55 36.8 C 56 L 20 117/62 93 O2 Del Method 05/29/23 10:00 05/29/23 10:00 05/29/23 09:45 05/29/23 09:45 05/29/23 09:30 05/29/23 09:30 05/29/23 09:15 05/29/23 09:15 05/29/23 08:53 05/29/23 09:00 05/29/23 09:00 05/29/23 08:56 05/29/23 08:49 Room Air 05/29/23 08:10 Room Air 05/29/23 06:01 05/29/23 06:01 05/29/23 06:00 05/29/23 05:56 05/29/23 05:56 05/29/23 05:55 05/29/23 05:55 05/29/23 05:30 05/29/23 05:00 05/29/23 04:55 05/29/23 06:06 Room Air 05/29/23 05:06 Room Air 05/29/23 04:56 05/29/23 05:01 Room Air 05/29/23 04:55 Room Air Laboratory Results Abnormal lab results 05/29/23 05/29/23 05/29/23 Range/Units 05:14 05:42 05:44 RBC 3.99 L (4.70-6.10) M/uL Hgb 13.2 L (14.0-18.0) g/dl POC Hgb 12.9 L (14.0-18.0) g/dl Hct 39.1 L (42.0-52.0) % POC Hct 38 L (42-52) % MPV 8.9 L (9.4-12.4) fL Activ Coag Time Kaolin (94-140) SECONDS Chloride 111 H (98-107) mmol/L POC Total CO2 21 L (24-31) mmol/L POC BUN 19 H (7-18) mg/dl BUN/Creatinine Ratio 21.8 H (10-20) Glucose 123 H (70-99(Fasting)) mg/dl POC Glucose (other) 135 H (70-99) mg/dl Calcium 8.5 L (8.6-10.3) mg/dl ALT 4 L (7-52) U/L Total Protein 5.8 L (6.0-8.3) gm/dl Globulin 1.6 L (2.5-4.0) gm/dl Albumin/Globulin Ratio 2.6 H (0.9-2) 05/29/23 05/29/23 Range/Units 07:29 07:56 RBC (4.70-6.10) M/uL Hgb (14.0-18.0) g/dl POC Hgb (14.0-18.0) g/dl Hct (42.0-52.0) % POC Hct (42-52) % MPV (9.4-12.4) fL Activ Coag Time Kaolin 143 H 233 H (94-140) SECONDS Chloride (98-107) mmol/L POC Total CO2 (24-31) mmol/L POC BUN (7-18) mg/dl BUN/Creatinine Ratio (10-20) Glucose (70-99(Fasting)) mg/dl POC Glucose (other) (70-99) mg/dl Calcium (8.6-10.3) mg/dl ALT (7-52) U/L Total Protein (6.0-8.3) gm/dl Globulin (2.5-4.0) gm/dl Albumin/Globulin Ratio (0.9-2) Diagnostic Findings XR chest 1V portable HISTORY: Chest pain, nonspecific COMPARISON: None. FINDINGS: No pneumothorax. No pleural effusions. A few bibasilar linear densities favor subsegmental atelectasis. Otherwise, lungs are clear. No evidence for pulmonary edema. The heart is normal in size. This mildly tortuous thoracic aorta. There are low lung volumes. Degenerative changes noted within the shoulders. IMPRESSION: No acute process. Medications Administered ER Medications Given: Nitroglycerin 1 inch paste Ondansetron 4mg IV ECG Rate (beats per minute): 57 Rhythm: normal sinus Findings: + ST elevation (Inferior) Comparison ECG Date: from (same day) Change: the following changes noted (Developing ST elevation changes inferiorly with reciprocal changes from 5am to 5:30am) Code Status & VTE Plan Code Status Full VTE Prophylaxis Plan VTE Prophylaxis will be ordered: Yes Critical Care Time Critical Care Time: Yes Total Critical Care Time: 35 PG Care Time/CCT Total # of Minutes Spent Total Time Spent with Patient: Total time spent is greater than 50% in coordination of care (as documented) at patient's floor/unit and/or counseling patient: Critical Care Time: Yes Total Critical Care Time: 35 Coding Level of Care Code 50099 INT INP/OBS CARE 3MIN Diagnoses STEMI (ST elevation myocardial infarction) I21.3 Parkinsons disease G20 Aortic root enlargement I77.89 HTN (hypertension) I10 Additional Codes Critical Care Time - Critical Care Time: Yes ([id number])
[2023-05-29] MEDS ORDERED: NITROGLYCERIN SL 0.4 MG/TAB TAB SL PRN (10:22)
[2023-05-29] MEDS ORDERED: Heparin IV Adult Wt-Based Low-Dose *NO* Bolus Protocol IV SCH (10:27)
[2023-05-29] MEDS ORDERED: HEPARIN SODIUM/DEXTROSE 25,000 UNITS/500 ML BAG IV SCH (10:30)
[2023-05-29] MEDS ORDERED: STAT IV Infusion **Titration per Protocol STA (10:40)
[2023-05-29] MEDS ORDERED: NITROGLYCERIN/D5W 100MCG/ML 250 ML IV SCH (10:45)
[2023-05-29] MEDS ORDERED: CARBIDOPA/LEVODOPA 25/100MG TAB PO STA (10:49)
[2023-05-29] MEDS ORDERED: POTASSIUM CHLORIDE CRTAB 20 MEQ TABCR PO STA (10:58)
--- NOTE | 2023-05-29 11:01 | Critical Care Consultation ---
Date of Consultation May 29, 2023 Assessment & Plan (1) Acute ST elevation myocardial infarction (STEMI) of inferior wall: (2) Aortic root enlargement: (3) HTN (hypertension): (4) Mild depression: (5) Parkinsons disease: (6) CAD (coronary artery disease): (7) Hyperlipidemia: (8) Prostate cancer: Plan 82 y/o male with a PMhx of CAD, HTN, HLD, and Parkinson's disease presented to the ED with chest pain found to have an inferior STEMI. Reason Critically Ill: inferior STEMI, nitro gtt, concern for deterioration #NEURO Alert and oriented CAM ICU - negative #RESP No history of lung disease. No acute concerns - on RA #CV #CAD #Inferior STEMI Unable to pass lesions in cardiac cath - trialed radial and femoral access points. Patient would benefit from optimization with GDMT and possible re- vascularization vs repeat PCI. Elevated HsTrop 1209.9. Trend [facility] cardiology on board - recommends transfer to [place], they will reach out ECHO to [facility] - ICU for monitoring #FENGI NPO for now #RENAL/LYTES Relatively unremarkable. Continue to monitor with AM BMP #HEME Anemia in the setting of an acute coronary event. Patient on heparin gtt. Monitor AM CBC and PT/INR #ID Low concern for infection # History of prostate cancer - follows with urology Code status: full DVT ppx: heparin gtt FENGI: NPO, sips and chips Dispo: ICU Supervising Physician Co-Signing Physician Notes Dr. Chester was resident physician during care of patient. I separately evaluated patient for casey portions of the history and the exam. I was present during the critical portion of medical decision making, and I discussed the case with the resident. I generally agree with the findings and plan. Patient with ST elevation PA, unable to resolve occlusion and [employer]. Discussed with [facility] cardiology at bedside who is working to facilitate transfer to [facility]. At this time the patient is hemodynamically stable on low-dose nitroglycerin with mild chest discomfort 4 out of 10 unchanged from presentation. I have personally spent 35 minutes of critical care time in the direct management of this patient. This is a life/limb threatening event. This includes time spent evaluating patient, direct bedside care, chart review, placing orders, interpretation of diagnostic studies, discussion with consultants, patient, and/or family members regarding treatment decisions, as valerie marrufo as other required patient management activities. This time is exclusive of all separately billable procedures, and teaching time and separate from and in addition to any other critical care service time. History of Present Illness Reason for Consultation: inferior PA Requesting Physician: Dr. Juarez Fleming Attending Physician: Dr. Galeano History of Present Illness 82 y/o male with a PMhx of CAD, HTN, HLD, and parkinson's disease presented to the ED with chest pressure. Patient woke up 05/29 at around 4:00 with persistent chest pressure described as 3-4/10. He called EMS and took an aspirin with them. He was then brought to the ED as a heart alert. He was treated with nitroglycerin which did provide mild relief of symptoms. EKG consistent with inferior PA with ST elevations in the inferior leads. He underwent cardiac catheterization, which was unsuccessful. Patient reports continued 3-4/10 chest pain. Denies any dizziness/lightheadedness. No radiation of symptoms. No nausea or abdominal pain. Patient does have a cardiac history as he had a stent placed in the . Also has HLD and HTN as risk factors. Per patient he has not been told he has had a heart attack in the past. Patient does also have an enlarged aorta which is monitor with US every 6 months. Follows with [facility] cardiology. Allergies Allergy/AdvReac Type Severity Reaction Status Date / Time niacin Allergy Mild FROM MED Verified 05/29/23 07:[address] FATIMA lactose Allergy Unknown MED RECORD Verified 05/29/23 07:41 duloxetine [From Cymbalta] AdvReac Mild poor Verified 05/29/23 07:41 balance mirabegron [From Myrbetriq] AdvReac dizziness Verified 05/29/23 07:41 Home Medications Medication Instructions Recorded Confirmed Type aspirin 81 mg tablet,delayed 81 mg PO HS 01/27/19 05/29/23 History release (Aspir-Low) clopidogrel 75 mg tablet (Plavix) 75 mg PO QAM 01/27/19 05/29/23 History saw palmetto 500 mg capsule 1 cap PO BID 01/27/19 05/29/23 History diclofenac sodium 1 % topical gel 2 g topical BID 11/27/19 05/29/23 History dorzolamide 2 % eye drops See Rx Instructions ophthalmic 01/14/20 05/29/23 History (eye) BID losartan 100 mg tablet 100 mg PO QAM 04/18/20 05/29/23 History multivitamin (Daily Multi-Vitamin 1 tab PO QAM 11/21/20 05/29/23 History tablet) omega-3 fatty acids 1,000 mg 1,000 mg PO QAM 11/21/20 05/29/23 History capsule (Fish Oil Concentrate) cyanocobalamin (vitamin B-12) 1,000 mcg IM MONTHLY #1 mL 02/15/21 05/29/23 Rx 1,000 mcg/mL injection solution polyethylene glycol 3350 17 17 g PO DAILY 05/11/21 05/29/23 History gram/dose oral powder (Miralax) simvastatin 80 mg tablet 80 mg PO QPM 05/11/21 05/29/23 History acetaminophen 325 mg capsule 325 mg PO BID fever or pain 08/28/21 05/29/23 History (Tylenol) cholecalciferol (vitamin D3) 50 50 mcg PO DAILY #30 caps 10/09/21 05/29/23 Rx mcg (2,000 unit) capsule melatonin 1 mg tablet 1 mg PO HS PRN Sleep 11/07/21 05/29/23 History spironolactone 25 mg tablet 25 mg PO DAILY 06/05/22 05/29/23 History metoprolol succinate 100 mg 100 mg PO QAM #90 tabs 12/19/22 05/29/23 Rx tablet,extended release 24 hr carbidopa 25 mg-levodopa 100 mg 2 tab PO TID 90 days #540 tabs 02/19/23 05/29/23 Rx tablet (Sinemet) carbidopa ER 50 mg-levodopa 200 mg 1 tab PO HS 90 days #90 tabs 03/11/23 05/29/23 Rx tablet,extended release potassium chloride 20 mEq 20 meq PO QAM #90 tabs 05/09/23 05/29/23 Rx tablet,extended release tamsulosin 0.4 mg capsule 0.4 mg PO DAILY #90 caps 05/14/23 05/29/23 Rx doxepin 10 mg capsule 20 mg PO PM 05/29/23 05/29/23 History nitroglycerin 0.4 mg sublingual 0.4 mg sublingual UD PRN Chest Pain 05/29/23 05/29/23 History tablet Patient History Medical History 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 Shashank Ross CAD (coronary artery disease) Cancer PROSTATE CANCER (BEING MONITORED) Cervical radiculopathy Disorder of kidney and ureter, unspecified HTN (hypertension) Hyperlipidemia Hypertension Idiopathic polyneuropathy Lumbar radiculopathy Lumbar spinal stenosis Osteoarthritis Parkinsons disease Resting tremor Sleep apnea MILD (NO DEVICE NEEDED)> lost weight has helped Syndrome X, metabolic Thoracic aortic aneurysm checked approx 2x per year> follows Dr. Encarnacion pt unaware of size Tubular adenoma of colon 1 cm tubular adenoma removed during colonoscopy (03/02), 3 year follow-up recommended (03/05). Colonoscopy on 04/04 demonstrated tubular adenoma in the sigmoid colon. Repeat colonoscopy was recommended in 5 years (03/10). Surgical History H/O spinal fusion (~03/2020) L3-5 laminectomy with spinal fusion History of angioplasty approx 20 yrs ago History of cardiac cath CHEST PAIN (2 CATHS) History of colonoscopy History of heart artery stent X 2 (LAST STENT PLACED 1999) History of hemorrhoidectomy History of nasal surgery SINUS SURGERY History of skin cancer with removal from face History of tonsillectomy History of tonsillectomy History of tooth extraction Family History Father , 75 CHF Family history of diabetes mellitus Congestive heart failure Diabetes Hypertension Grandfather (Paternal) Diabetes Brother Obesity Urinary calculus Impaired fasting glucose Mother , age 85 aspiration Hypertension Denies family history of Ovarian cancer Prostate cancer Myocardial infarction Breast cancer Lung cancer Colorectal cancer Stroke Social History Smoking Status: Light tobacco smoker Tobacco Type: Cigars Age Started Using Tobacco: 26; Cigarettes Per Day: cigar approx q4 weeks; Second Hand Exposure: No; Do You Dip or Chew Tobacco: No; Hx Alcohol Use: Yes Alcohol type: hard liquor Alcohol Intake Frequency: 2-4 x/Month Alcohol Intake Frequency Comment: 2 drinks of scotch per month Hx Substance Use: No Preferred Language: Spanish Communication Ability: Effective Visual Impairment: Limited Hearing Ability: Use of Hearing Aid Broadband Installer Required: No Beliefs That Will Affect Care: None marital status: Current Living Situation: Spouse current occupational status: retired 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 [employer] How many Children do You have: 3 other: 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[facility] [place] Feels Safe at Home: Yes Childhood Exposure to Second-Hand Smoke: No caffeine: Yes Dental Care, Regularly: Yes Physical Activity Frequency: Does not Exercise Seatbelt Use: always Sunscreen Use: No Assistive Devices: Cane, Glasses and Hearing Aid - Bilateral Review of Systems Review of Systems: See HPI Physical Exam Physical Exam: Gen: well appearing male in NAD HEENT: AT NC MMM EOMI Resp: CTAB, no wheezing CV: RRR diminished heart sounds throughout, no edema 2+ peripheral pulses Abd: soft non-tender, non-distended MSK: no gross deformities Skin: no rashes or bruising, left wrist wound c/d/i Neuro: alert and oriented Psych: appropriate mood and affect Results & Data Results & Data Vital Signs (Past 12 Hours) Vitals as of 11:30 BP 123/77 HR 64 RR 17 Temp 37C O2 Sat 98 on RA Laboratory Results 05/29/23 05:42 05/29/23 05:14 Diagnostic Findings Cath 05/29/23 Coronary angiography findings: [id number] vessel bifurcating into LAD and LCx. Mild calcification and diffuse mild disease. LAD-large caliber and transapical. Proximal, mid, and early distal vessel are moderately to severely calcified. There are 3 small to medium caliber diagonal branches. These have diffuse mild disease. The LAD itself has diffuse mild to moderate disease with a focal 60 to 70% stenosis in the distal vessel. LCx-this is large caliber and nondominant. It is mildly calcified proximally. Travels in the AV groove where it gives a large branching OM1 and a medium to large branching OM 2. The vessel then appears to terminate although it does provide an atrial branch and a functional small caliber posterolateral branch arising from the OM 2. There is diffuse mild disease in the circumflex and its branches. NCC-bneuj-skfkqza and presumably dominant vessel. It has severe calcification and tortuosity. There is diffuse mild to moderate disease in the proximal and mid vessel. The early distal portion of the vessel is 100% occluded with SANTOS 0 flow and stains with contrast suggesting thrombus. PCI of RCA: Despite exhaustive attempts at crossing the lesion and advancing a PTCA balloon we were unsuccessful in performing PTCA. Summary: 1. Patient has severe calcification and tortuosity of his large peripheral vessels as well as his coronary arteries making vascular access very difficult and coronary catheter manipulation also very difficult. 2. Patient has acute thrombotic occlusion of the distal RCA explaining his chest pain and EKG changes. Unfortunately, unsuccessful attempts at PCI of this vessel. 3. Patient's left coronary system has mild to moderate disease. There is angiographically borderline disease in the distal LAD which is not the culprit and may be too small for PCI. 4. 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 Further investigation is recommended as there may be an indication for aortic valve/ascending aortic repair. 5. Patient will be admitted to the ICU where heparin will be provided as a drip for 24 hours. He will also be initiated on guideline directed medical therapy for secondary prevention of coronary artery disease. Resident Activity Tracking Resident Involvement: Resident Care Provided Care Provided: Adult [facility]
[2023-05-29] MEDS ORDERED: ICU Protocol for HYPERglycemia SCH (11:30)
--- NOTE | 2023-05-29 12:02 | Cardiology Consultation ---
Date of Consultation May 29, 2023 Assessment & Plan (1) Acute ST elevation myocardial infarction (STEMI) of inferior wall: (2) CAD (coronary artery disease): (3) Aortic root enlargement: Plan 82-year-old male presenting with inferior ST elevation NE. Taken to the cardiac catheterization lab urgently with unsuccessful attempted PCI of the right coronary artery. Post catheterization symptoms improved, however, recurrent chest discomfort and associated ST elevation noted. Recommend restart IV heparin infusion. Initiate IV nitroglycerin to improve pain control. Further treatment options are limited at this facility. Discussed transfer to tertiary care center, [facility]. Patient agreeable. Case discussed with interventional cardiology at [facility]. Recommend continued medical management and transfer to tertiary care for further evaluation. Consideration for repeat cardiac catheterization/PCI of the right coronary artery upon arrival to [facility]. 65 minutes critical care time spent evaluating patient, reviewing data, d iscussing plan of care with consultants, and specifically, 28 minutes on phone arranging transfer to tertiary care center. History of Present Illness Reason for Consultation: inferior STEMI Requesting Physician: Dr. Fleming Attending Physician: Lionel Baxter MD, PhD History of Present Illness 82-year-old male present to the emergency department with chest discomfort. ECG demonstrating inferior ST elevations. Taken emergently to the cardiac catheterization lab at approximately 6 AM. Coronary angiography revealed occlusion of the mid right coronary artery. There is a 70% distal LAD stenosis. The RCA was felt to be the culprit vessel and intervention was attempted. Access transition to the femoral artery to improve support, however, the RCA stenosis could not be crossed. Ultimately the procedure was aborted and an Angio-Seal was placed in the right femoral artery. Patient returned to the ICU chest pain-free. I was contacted by hospitalist regarding recurrent chest pain. Stat ECG obtained demonstrate recurrent inferior ST elevation. Patient seen and examined at the bedside describing 3-4/10 chest discomfort. He appears comfortable. No dyspnea, lightheadedness, or diaphoresis. Denies nausea or vomiting. No dysrhythmia on telemetry. Echocardiogram pending. Complex cardiovascular history noted below. Cardiac history: 1. Atherosclerotic coronary disease. Status post prior PTCA and stenting of the right coronary artery in 1999 and in 2004 ([place]). 2. Aortic root enlargement 3. Ascending aorta enlargement 4. Aortic insufficiency 5. Hypertension 6. Right bundle branch block 7. Hyperlipidemia Allergies Allergy/AdvReac Type Severity Reaction Status Date / Time niacin Allergy Mild FROM MED Verified 05/29/23 07:[address] FATIMA lactose Allergy Unknown MED RECORD Verified 05/29/23 07:41 duloxetine [From Cymbalta] AdvReac Mild poor Verified 05/29/23 07:41 balance mirabegron [From Myrbetriq] AdvReac dizziness Verified 05/29/23 07:41 Home Medications Medication Instructions Recorded Confirmed Type aspirin 81 mg tablet,delayed 81 mg PO HS 01/27/19 05/29/23 History release (Aspir-Low) clopidogrel 75 mg tablet (Plavix) 75 mg PO QAM 01/27/19 05/29/23 History saw palmetto 500 mg capsule 1 cap PO BID 01/27/19 05/29/23 History diclofenac sodium 1 % topical gel 2 g topical BID 11/27/19 05/29/23 History dorzolamide 2 % eye drops See Rx Instructions ophthalmic 01/14/20 05/29/23 History (eye) BID losartan 100 mg tablet 100 mg PO QAM 04/18/20 05/29/23 History multivitamin (Daily Multi-Vitamin 1 tab PO QAM 11/21/20 05/29/23 History tablet) omega-3 fatty acids 1,000 mg 1,000 mg PO QAM 11/21/20 05/29/23 History capsule (Fish Oil Concentrate) cyanocobalamin (vitamin B-12) 1,000 mcg IM MONTHLY #1 mL 02/15/21 05/29/23 Rx 1,000 mcg/mL injection solution polyethylene glycol 3350 17 17 g PO DAILY 05/11/21 05/29/23 History gram/dose oral powder (Miralax) simvastatin 80 mg tablet 80 mg PO QPM 05/11/21 05/29/23 History acetaminophen 325 mg capsule 325 mg PO BID fever or pain 08/28/21 05/29/23 History (Tylenol) cholecalciferol (vitamin D3) 50 50 mcg PO DAILY #30 caps 10/09/21 05/29/23 Rx mcg (2,000 unit) capsule melatonin 1 mg tablet 1 mg PO HS PRN Sleep 11/07/21 05/29/23 History spironolactone 25 mg tablet 25 mg PO DAILY 06/05/22 05/29/23 History metoprolol succinate 100 mg 100 mg PO QAM #90 tabs 12/19/22 05/29/23 Rx tablet,extended release 24 hr carbidopa 25 mg-levodopa 100 mg 2 tab PO TID 90 days #540 tabs 02/19/23 05/29/23 Rx tablet (Sinemet) carbidopa ER 50 mg-levodopa 200 mg 1 tab PO HS 90 days #90 tabs 03/11/23 05/29/23 Rx tablet,extended release potassium chloride 20 mEq 20 meq PO QAM #90 tabs 05/09/23 05/29/23 Rx tablet,extended release tamsulosin 0.4 mg capsule 0.4 mg PO DAILY #90 caps 05/14/23 05/29/23 Rx doxepin 10 mg capsule 20 mg PO PM 05/29/23 05/29/23 History nitroglycerin 0.4 mg sublingual 0.4 mg sublingual UD PRN Chest Pain 05/29/23 0 05/29/23 History tablet Patient History Medical History 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 Shashank Ross CAD (coronary artery disease) Cancer PROSTATE CANCER (BEING MONITORED) Cervical radiculopathy Disorder of kidney and ureter, unspecified HTN (hypertension) Hyperlipidemia Hypertension Idiopathic polyneuropathy Lumbar radiculopathy Lumbar spinal stenosis Osteoarthritis Parkinsons disease Resting tremor Sleep apnea MILD (NO DEVICE NEEDED)> lost weight has helped Syndrome X, metabolic Thoracic aortic aneurysm checked approx 2x per year> follows Dr. Encarnacion pt unaware of size Tubular adenoma of colon 1 cm tubular adenoma removed during colonoscopy (03/02), 3 year follow-up recommended (03/05). Colonoscopy on 04/04 demonstrated tubular adenoma in the sigmoid colon. Repeat colonoscopy was recommended in 5 years (03/10). Surgical History H/O spinal fusion (~03/2020) L3-5 laminectomy with spinal fusion History of angioplasty approx 20 yrs ago History of cardiac cath CHEST PAIN (2 CATHS) History of colonoscopy History of heart artery stent X 2 (LAST STENT PLACED 1999) History of hemorrhoidectomy History of nasal surgery SINUS SURGERY History of skin cancer with removal from face History of tonsillectomy History of tonsillectomy History of tooth extraction Family History Father , 75 CHF Family history of diabetes mellitus Congestive heart failure Diabetes Hypertension Grandfather (Paternal) Diabetes Brother Obesity Urinary calculus Impaired fasting glucose Mother , age 85 aspiration Hypertension Denies family history of Ovarian cancer Prostate cancer Myocardial infarction Breast cancer Lung cancer Colorectal cancer Stroke Social History Smoking Status: Light tobacco smoker Tobacco Type: Cigars Age Started Using Tobacco: 26; Cigarettes Per Day: cigar approx q4 weeks; Second Hand Exposure: No; Do You Dip or Chew Tobacco: No; Tobacco Cessation Education Requested by Patient: No Hx Alcohol Use: Yes Alcohol type: hard liquor Alcohol Intake Frequency: 2-4 x/Month Alcohol Intake Frequency Comment: 2 drinks of scotch per month Hx Substance Use: No Preferred Language: Polish Communication Ability: Effective Visual Impairment: Limited Hearing Ability: Use of Hearing Aid Parcel 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 Required: No Beliefs That Will Affect Care: None marital status: Current Living Situation: Spouse current occupational status: retired 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 [employer] How many Children do You have: 3 other: he spent 18 years after the [employer] at [facility] Jose David Feels Safe at Home: Yes Safety Concerns: Feels Safe At This Time Childhood Exposure to Second-Hand Smoke: No caffeine: Yes Dental Care, Regularly: Yes Physical Activity Frequency: Does not Exercise Seatbelt Use: always Sunscreen Use: No Assistive Devices: Cane, Glasses and Hearing Aid - Bilateral Review of Systems Review of Systems: All systems reviewed & are unremarkable except as noted in Subjective Physical Exam Constitutional: well nourished and + ill appearing; no acute distress Respiratory: normal respiratory effort; no respiratory distress, no labored breathing and no retractions Auscultation: no crackles, no rales, no rhonchi and no wheezes Cardiovascular: Rate/Rhythm: regular rate and regular rhythm Heart Sounds: normal S1 and normal S2; no murmur Vessels: femoral pulses present; no JVD and no carotid bruit Extremities: no edema Gastrointestinal (Abdomen): Inspection/Auscultation: abdomen normal to inspection and normal bowel sounds; abdomen not distended Percussion/Palpation: abdomen soft; abdomen nontender, no guarding and abdomen not rigid Neurologic: CN's II-XI intact bilaterally and moves all extremities; no focal motor deficits Psychiatric: A+Ox3, euthymic affect Results & Data Vital Signs (Past 12 Hours) Vital Signs Temp Pulse Pulse Resp BP BP Pulse Ox 05/29/23 11:23 37 C 05/29/23 11:30 64 17 05/29/23 11:30 123/77 05/29/23 11:15 63 18 05/29/23 11:15 132/77 05/29/23 11:11 63 15 05/29/23 11:11 130/92 05/29/23 11:00 63 11 L 05/29/23 10:45 61 18 98 05/29/23 10:45 131/85 05/29/23 10:30 62 25 H 96 05/29/23 10:30 129/75 05/29/23 10:15 59 L 14 97 05/29/23 10:15 127/80 05/29/23 10:00 58 L 20 98 05/29/23 10:00 130/77 05/29/23 09:45 59 L 25 H 98 05/29/23 09:45 124/79 05/29/23 09:30 58 L 23 96 05/29/23 09:30 115/82 05/29/23 09:15 62 18 95 05/29/23 09:15 129/83 05/29/23 08:53 36.8 C 05/29/23 09:00 62 17 95 05/29/23 09:00 127/82 05/29/23 08:56 62 16 96 05/29/23 08:49 36.8 C 62 18 123/80 95 05/29/23 08:10 59 L 18 129/69 95 05/29/23 06:01 140/93 05/29/23 06:01 63 95 05/29/23 06:00 62 95 05/29/23 05:56 131/80 05/29/23 05:56 61 97 05/29/23 05:55 137/85 05/29/23 05:55 67 94 05/29/23 05:30 59 L 14 95 05/29/23 05:00 63 21 93 05/29/23 04:55 60 17 05/29/23 06:06 05/29/23 05:06 98 05/29/23 04:56 61 05/29/23 05:01 92 05/29/23 04:55 36.8 C 56 L 20 117/62 93 O2 Del Method 05/29/23 11:23 05/29/23 11:30 05/29/23 11:30 05/29/23 11:15 05/29/23 11:15 05/29/23 11:11 05/29/23 11:11 05/29/23 11:00 05/29/23 10:45 05/29/23 10:45 05/29/23 10:30 05/29/23 10:30 05/29/23 10:15 05/29/23 10:15 05/29/23 10:00 05/29/23 10:00 05/29/23 09:45 05/29/23 09:45 05/29/23 09:30 05/29/23 09:30 05/29/23 09:15 05/29/23 09:15 05/29/23 08:53 05/29/23 09:00 05/29/23 09:00 05/29/23 08:56 05/29/23 08:49 Room Air 05/29/23 08:10 Room Air 05/29/23 06:01 05/29/23 06:01 05/29/23 06:00 05/29/23 05:56 05/29/23 05:56 05/29/23 05:55 05/29/23 05:55 05/29/23 05:30 05/29/23 05:00 05/29/23 04:55 05/29/23 06:06 Room Air 05/29/23 05:06 Room Air 05/29/23 04:56 05/29/23 05:01 Room Air 05/29/23 04:55 Room Air Laboratory Results Cardiac Enzymes 05/29/23 05/29/23 Range/Units 05:14 11:08 AST 15 (13-39) U/L Troponin I High Sens 6.8 1209.9 H* D (0-20) pg/ml Coagulation 05/29/23 Range/Units 05:42 PT 11.4 (9.0-12.0) Seconds APTT 24.0 (21.0-31.0) Seconds CBC 05/29/23 05/29/23 Range/Units 05:14 05:42 WBC Cancelled 5.75 RBC Cancelled 3.99 L Hgb Cancelled 13.2 L Hct Cancelled 39.1 L Plt Count Cancelled 200 Neut # (Auto) Cancelled 3.23 Lymph # (Auto) Cancelled 1.64 Cataño # (Auto) Cancelled 0.34 Eos # (Auto) Cancelled 0.44 Baso # (Auto) Cancelled 0.09 Comprehensive Metabolic Panel 05/29/23 Range/Units 05:14 Sodium 140 (136-145) mmol/L Potassium 3.6 (3.5-5.1) mmol/L Chloride 111 H (98-107) mmol/L Carbon Dioxide 22 (21-32) mmol/L BUN 19 (6-23) mg/dl Creatinine 0.87 (0.6-1.4) mg/dl Glucose 123 H (70-99(Fasting)) mg/dl Calcium 8.5 L (8.6-10.3) mg/dl AST 15 (13-39) U/L ALT 4 L (7-52) U/L Alkaline Phosphatase 36 (34-104) U/L Total Protein 5.8 L (6.0-8.3) gm/dl Albumin 4.2 (3.4-5.0) gm/dl Intake and Output 05/28/23 05/29/23 05/29/23 22:59 06:59 14:59 Intake Total 4.80 / 4.80 Balance 4.80 / 4.80 Intake: IV 4.80 / 4.80 Nitroglycerin/D5w 100Mcg/ml 250 4.80 / 4.80 ml @ 5 MCG/MIN 3 mls/hr IV . Q24H [facility] Rx#:[id number] Other: Weight 95.6 kg 93.894 kg Weight Measurement Method Built in Bedscale Stated by Patient Patient Weight 05/30/23 06:59 Weight 93.894 kg
[2023-05-29 12:04] LABS: Troponin I High Sensitivity 1209.9 pg/ml (0-20)
[2023-05-29 12:15] LABS: Partial Thromboplastin Ratio 2.9
[2023-05-29] MEDS ORDERED: MoRPHine SULFATE 2 MG/ML CARP IV PRN (12:31)
--- NOTE | 2023-05-29 12:54 | Discharge Summary ---
Date of Service May 29, 2023 Admission HPI Per Admitting Provider Raúl Zhong is an 82 year old male who presents to the ER with chest pain. He has known coronary artery disease under [facility] cardiology. Pain started around 4am today. Central substernal 4/10, no radiation. He called EMS who gave him x4 aspirin and nitroglycerin which did not help his pain. he did not take any of his other usual medications this morning. He was seen in the ER with repeat EKG from 4:58 -> 5:28am showing acute inferior STEMI. 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 PCI to this vessel was unsuccessful. [facility] Hospitalist consulted for admission, initially this was incorrectly placed to the [facility] hospitalist group and I was informed of his admission at 10:07am. After discussion with Dr Baxter regarding heparin drip, this was subsequently ordered with repeat PTT as he had already had a bolus during the cardiac catheterization, other cardiac orders were deferred to [facility] cardiology. Patient was subsequently seen and still having 4/10 chest pain, no different than when he first came to the ER, repeat EKG shows persistent ST elevations in inferior leads. No associated diaphoresis, nausea or presyncope. Nitroglycerin IV drip was ordered as he reported the nitro paste placed prior to cardiac catheterization did initially help (brought pain down to 2/10) and did not cause hypotension. [facility] cardiology (Dr Terry) and Premium Note Interest Calculator Clerk (Dr Galeano) were contacted for urgent evaluation as likely patient requires transfer for ongoing care - discussed care at bedside. Principal Diagnosis ST elevation myocardial infarction Discharge Exam Constitutional WD/WN, vitals as above Respiratory normal respiratory effort, lungs clear to auscultation Cardiovascular RRR, no murmur, no edema Gastrointestinal (Abdomen) normal bowel sounds, soft, nontender, no hepatosplenomegaly Psychiatric A+Ox3, euthymic affect Discharge Data Allergies Allergy/AdvReac Type Severity Reaction Status Date / Time niacin Allergy Mild FROM MED Verified 05/29/23 07:[address] FATIMA lactose Allergy Unknown MED RECORD Verified 05/29/23 07:41 duloxetine [From Cymbalta] AdvReac Mild poor Verified 05/29/23 07:41 balance mirabegron [From Myrbetriq] AdvReac dizziness Verified 05/29/23 07:41 Consultations 05/29/23 09:16 Consult Hospitalist Routine 05/29/23 09:18 Consult Cardiology Routine 05/29/23 10:13 Consult Premium Note Interest Calculator Clerk Routine 05/29/23 11:33 Burn CD for patient Stat Procedures Performed Operation Date: 05/29/23 06:00 Actual Procedures s Cineradiography w/Routine Exam - Lionel Baxter MD, PhD p Cath, Coronaries ONLY (no LV) - Lionel Baxter MD, PhD s Placement Art Occlusive Device - Lionel Baxter MD, PhD s Drug Eluting Stent SGl Vessel - Lionel Baxter MD, PhD Ordered Studies 05/29/23 05:54 CL Cath Imgs for PACS use only Stat 05/29/23 06:02 CL Cath Imgs for PACS use only Stat Hospital Course (1) STEMI (ST elevation myocardial infarction): Raúl Zhong is an 82 year old male who presented to the ER on May 29, 2023 due to chest pain. He was given ASA 324mg PO and nitroglycerin SL by EMS prior to arrival in ER. He was diagnosed with inferior STEMI on EKG. He underwent emergent cardiac catheterization with unsuccessful PCI to suspected culprit of thrombotic disease to distal RCA. Upon evaluation in the ICU he was having ongoing chest pain with persistent EKG ST elevation. High sensitivity troponin elevation 1210 pg/ml. He was started on intravenous heparin and nitroglycerin. On review by [facility] cardiology recommended transfer to [facility]. Patient life-flighted to [facility] for ongoing care. Note his medications below are home medications. Please see separate sheet for inpatient medications given. He did not take any of his regular medications this morning. (2) Parkinsons disease: (3) Aortic root enlargement: (4) HTN (hypertension): Total Time Total Time Spent Total Time Spent (In Minutes): 15 Discharge Plan Discharge Items Patient Disposition: Transfer Acute Care Hospital Reason For Visit: STEMI Discharge Diagnosis: STEMI Activity: As commented below Non-emergency contact: Primary Care Provider and Family Coach Call non-emergency contact if: you have any medication questions and your symptoms worsen Follow-up/Referrals: PCP,NO [Physician] - Diet: Nothing by Mouth Addtl Attending Provider Instructions: Raúl Zhong is an 82 year old male who presented to the ER on May 29, 2023 due to chest pain. he was given ASA 324mg PO and nitroglycerin SL by EMS prior to arrival in ER. He was diagnosed with inferior STEMI. He underwent emergent cardiac catheterization with unsuccessful PCI to suspect culprit of thrombotic disease to distal RCA. Upon evaluation in the ICU he was having ongoing chest pain with persistent EKG ST elevation. High sensitivity troponin elevation 1210 pg/ml. He was started on intravenous heparin and nitroglycerin. On review by [facility] cardiology recommended transfer to [facility] at this time. Note his medications below are home medications. Please see separate sheet for inpatient medications given. He did not take any of his regular medications this morning. Pending Studies at Discharge: No Stand-Alone Forms: My [facility] Skilled Items Patient informed of condition?: Yes DNR: No Discharge Level of Care: Other Communicable Disease: No Discharge Prognosis: Stable Lines: Peripheral IV Urinary Catheter: No Medications and DC Order Prescriptions: Continued simvastatin 80 mg tablet 80 mg PO QPM polyethylene glycol 3350 [Miralax] 17 gram/dose powder 17 g PO DAILY cholecalciferol (vitamin D3) 50 mcg (2,000 unit) capsule 50 mcg PO DAILY Qty: 30 7RF metoprolol succinate 100 mg tablet extended release 24 hr 100 mg PO QAM Qty: 90 3RF carbidopa-levodopa [Sinemet] 25-100 mg tablet 2 tab PO TID 90 Days Qty: 540 4RF carbidopa-levodopa 50-200 mg tablet extended release 1 tab PO HS 90 Days Qty: 90 1RF potassium chloride 20 mEq tablet extended release 20 meq PO QAM Qty: 90 3RF tamsulosin 0.4 mg capsule 0.4 mg PO DAILY Qty: 90 3RF acetaminophen [Tylenol] 325 mg capsule 325 mg PO BID dorzolamide 2 % drops See Rx Instructions OP BID Rx Instructions: one drop each eye ophthalmic (eye) twice a day; cyanocobalamin (vitamin B-12) 1,000 mcg/mL solution 1,000 mcg IM MONTHLY Qty: 1 2RF spironolactone 25 mg tablet 25 mg PO DAILY losartan 100 mg tablet 100 mg PO QAM melatonin 1 mg tablet 1 mg PO HS PRN (Reason: Sleep) diclofenac sodium 1 % gel 2 g TOPICAL BID multivitamin [Daily Multi-Vitamin] Tablet 1 tab PO QAM omega-3 fatty acids [Fish Oil Concentrate] 1,000 mg capsule 1,000 mg PO QAM clopidogrel [Plavix] 75 mg Tablet 75 mg PO QAM Hold Instructions: until procedure done aspirin [Aspir-Low] 81 mg Tablet,Delayed Release (Dr/Ec) 81 mg PO HS saw palmetto 500 mg Capsule 1 cap PO BID nitroglycerin 0.4 mg tablet, sublingual 0.4 mg sublingual UD PRN (Reason: Chest Pain) doxepin 10 mg capsule 20 mg PO PM Discharge Orders: Discharge Order (Routine); Ordered 05/29/23 Ordered By: Juarez Fleming Admission Data Admit Date/Time: 05/29/23 10:13 Attending Provider: Juarez Fleming Admit Provider: Juarez Fleming Primary Care Provider: Lele Toure Other Providers: Lele Galeano ; Naseem Montalvo ; Rob Terry Other Interventions: Discharge Summary Assessment (RN) Last Done: 05/29/23 13:08 Coding Level of Care Code None Diagnoses STEMI (ST elevation myocardial infarction) I21.3 Parkinsons disease G20 Aortic root enlargement I77.89 HTN (hypertension) I10
--- NOTE | 2023-05-29 14:16 | Electrocardiogram Report ---
Test Reason : Blood Pressure : / mmHG Vent. Rate : 059 BPM Atrial Rate : 059 BPM P-R Int : 230 ms QRS Dur : 144 ms QT Int : 464 ms P-R-T Axes : -04 036 020 degrees QTc Int : 459 ms Sinus bradycardia with 1st degree A-V block with occasional Premature ventricular complexes Right bundle branch block Nonspecific T wave abnormality Abnormal ECG When compared with ECG of 10-OCT-2020 17:42, Premature ventricular complexes are now Present NV interval has increased Confirmed by Vince Blank ([id number]) on 05/29/2023 2:16:35 PM Referred By: REFERRED SELF Confirmed By:Timoteo Blank
--- NOTE | 2023-05-29 14:18 | Electrocardiogram Report ---
Test Reason : Blood Pressure : / mmHG Vent. Rate : 057 BPM Atrial Rate : 057 BPM P-R Int : 226 ms QRS Dur : 138 ms QT Int : 448 ms P-R-T Axes : 002 059 071 degrees QTc Int : 436 ms Sinus bradycardia with 1st degree A-V block Non-specific intra-ventricular conduction block ST elevation consider inferior injury or acute infarct ACUTE [place] / STEMI Consider right ventricular involvement in acute inferior infarct Abnormal ECG When compared with ECG of 29-MAY-2023 04:58, (unconfirmed) Premature ventricular complexes are no longer Present Confirmed by Vince Blank ([id number]) on 05/29/2023 2:17:36 PM Referred By: REFERRED SELF Confirmed By:Timoteo Blank
--- NOTE | 2023-05-29 14:27 | Electrocardiogram Report ---
Test Reason : Blood Pressure : / mmHG Vent. Rate : 059 BPM Atrial Rate : 059 BPM P-R Int : 214 ms QRS Dur : 144 ms QT Int : 456 ms P-R-T Axes : -14 061 077 degrees QTc Int : 451 ms Sinus bradycardia with 1st degree A-V block with occasional Premature ventricular complexes Right bundle branch block Inferior infarct , possibly acute ACUTE [place] / STEMI Consider right ventricular involvement in acute inferior infarct Abnormal ECG When compared with ECG of 10-OCT-2020 17:42, Premature ventricular complexes are now Present Inferior infarct is now Present ST elevation now present in Inferior leads T wave inversion more evident in Inferior leads Confirmed by Vince Blank ([id number] on 05/29/2023 2:27:12 PM Referred By: REFERRED SELF Confirmed By:Timoteo Blank
--- NOTE | 2023-05-29 14:28 | Electrocardiogram Report ---
Test Reason : Blood Pressure : / mmHG Vent. Rate : 062 BPM Atrial Rate : 062 BPM P-R Int : 226 ms QRS Dur : 134 ms QT Int : 444 ms P-R-T Axes : 016 074 071 degrees QTc Int : 450 ms Sinus rhythm with 1st degree A-V block Right bundle branch block Inferior infarct (cited on or before 29-MAY-2023) ACUTE [place] / STEMI Abnormal ECG When compared with ECG of 29-MAY-2023 08:46, (unconfirmed) Premature ventricular complexes are no longer Present Confirmed by Vince Blank ([id number] on 05/29/2023 2:28:07 PM Referred By: REFERRED SELF Confirmed By:Timoteo Blank
--- NOTE | 2023-05-29 14:48 | Billing Data ---
Date of Service May 29, 2023 Coding Level of Care Code 56751 CRITICAL CARE -M
== END 2023-05-29 13:19 | disposition short-term general hospital (02) | DRG 282 ==
LOC: ED 04:51 → CC 06:05 → MERGE 06:05 → CC 06:06 → SUATTDRO 10:13 → 1E 10:13
PROC: CLB.CCO (~2023-05-29)

== ENCOUNTER 2024-06-20 11:45 | Inpatient (IN) ==
--- OUTSIDE RECORDS SUMMARY | 2024-06-20 11:49 | External Medical Summary | Summary of Care ---
Author Name Unknown Organization [facility] Address [address] [place] [address] Phone [phone] Care Team Providers Care Waste Water Operator Name Role Phone Lele Toure DO Primary Care Provider [phone] Reason for Visit * Reason Comments Follow Up 4 month follow up. T ires very easily. Doesn't sleep very well and this is ongoing. Chest discomfort at the top center of chest and will notice when more active- noticeable during PT and last a couple minutes- at rest will subside. Occasional SOB with activity. Denies dizziness, edema and palpitations. Encounter Details Date Type Department Care Team (Late st Contact Info) Description 06/11/2024 2:00 PM EDT Office Visit Cardiology, [facility] [address] [place] [address] Trevor Sy PA-C [address] [place] [phone] Chronic coronary artery disease*; HTN, goal below 130/80; Acute on chronic systolic heart failure (HCC); S/P angioplasty with stent; Aortic root enlargement (HCC); Ascending aorta dilatation (HCC); Dyslipidemia, goal LDL below 70 Allergies Active Allergy Reactions Criticality Noted Date Comments Lactate Diarrhea 08/01/2015 Niacin 10/21/2017 Generalized tingling Torsemide Other (Please comment) 02/03/2024 Dizziness documented as of this encounter (statuses as of 06/14/2024) Medications Medication Sig Dispensed Refills Start Date End Date Status ASPIRIN 81 MG PO TABS one tablet daily Active FISH OIL OIL daily Active VOLTAREN 1 % TD GEL apply twice a day Active MULTIVITAMINS PO CAPS 1 tab daily Active Melatonin 5 MG Tablet Take 1 Capsule by mouth at bedtime. Active Saw Coleman 1000 MG CAPS Take by mouth 2 times a day. Active dorzolamide (TRUSOPT OCUMETER PLUS) 2 % ophthalmic solution 1 Drop in the morning and 1 Drop at noon and 1 Drop before bedtime. Active Acetaminophen 500 MG Capsule Take 2 Capsules by mouth in the morning and 2 Capsules before bedtime. Active Tamsulosin HCl 0.4 MG Oral Capsule (Flomax) Take 1 Capsule by mouth in the morning. Active Polyethylene Glycol 3350 17 GM Oral Packet (Miralax) Take 1 Packet by mouth as needed. Active Carbidopa-Levodo pa 25-100 MG Oral Tablet (Sinemet) Take 1 Tablet by mouth in the morning and 1 Tablet at noon and 1 Tablet in the evening and 1 Tablet before bedtime. 07/07/2021 Active Doxepin HCl 10 MG Oral Capsule (SINEquan) Take 2 Capsules by mouth at bedtime. 06/01/2023 Active Metoprolol Succinate ER 100 MG Oral Tablet Extended Release 24 Hour (toPROL XL)Indications:H TN, goal below 130/80,SVT (supraventricula r tachycardia) (HCC) Take 0.5 Tablets by mouth in the morning. 30 Tablet 06/01/2023 Active Atorvastatin Calcium 40 MG Oral Tablet (Lipitor) Take 1 Tablet by mouth in the morning. 30 Tablet 06/01/2023 Active Magnesium 250 MG Oral Tablet Take 1 Tablet by mouth in the morning. Active Carbidopa-Levodo pa ER 50-200 MG Oral Tablet Extended Release (Sinemet CR) Take 1.5 Tablets by mouth at bedtime. 01/13/2024 Active Entacapone 200 MG Oral Tablet (Comtan) Take 1 Tablet by mouth in the morning and 1 Tablet before bedtime. 01/17/2024 Active Vitamin D 25 MCG (1000 UT) Oral Tablet Take by mouth. Active Clopidogrel Bisulfate 75 MG Oral Tablet (pLAVix)Indicati ons:S/P primary angioplasty with coronary stent TAKE 1 TABLET DAILY 90 Tablet 3 02/18/2024 Active Spironolactone 25 MG Oral Tablet (Aldactone) Take 1 Tablet by mouth in the morning. 90 Tablet 3 03/23/2024 Active Nitroglycerin 0.4 MG Sublingual Tablet Sublingual (Nitrostat)Indic ations:S/P angioplasty with stent,Chronic coronary artery disease DISSOLVE 1 TABLET UNDER THE TONGUE EVERY 5 MINUTES NEEDED WITH CHEST PAIN UP TO 3 DOSES IN 15 MINUTES 25 Tablet 11 04/14/2024 Active Losartan Potassium 25 MG Oral Tablet (Cozaar)Indicati ons:HTN, goal below 130/80 TAKE ONE-HALF (1/2) TABLET IN THE MORNING 45 Tablet 3 05/07/2024 Active Isosorbide Mononitrate ER 30 MG Oral Tablet Extended Release 24 Hour (Imdur)Indicatio ns:HTN, goal below 130/80,Acute on chronic systolic heart failure (HCC) Take 1 Tablet by mouth in the morning. 90 Tablet 3 06/11/2024 Active Spironolactone 25 MG Oral Tablet (Aldactone) Take 1 Tablet by mouth in the morning. 30 Tablet 01/30/2024 4 Discontinued(Medi cation List Clean Up) Spironolactone 25 MG Oral Tablet (Aldactone) Take 1 Tablet by mouth in the morning. 90 Tablet 3 01/30/2024 4 Discontinued(Medi cation List Clean Up) Isosorbide Mononitrate ER 30 MG Oral Tablet Extended Release 24 Hour (Imdur)Indicatio ns:HTN, goal below 130/80,Acute on chronic systolic heart failure (HCC) Take 0.5 Tablets by mouth daily. 45 Tablet 3 02/27/2024 4 Discontinued documented as of this encounter (statuses as of 06/14/2024) Active Problems Problem Noted Date Diagnosed Date Acute ST elevation myocardia l infarction (STEMI) of inferior wall 05/29/2023 Metabolic syndrome 05/29/2023 Parkinsons disease 05/29/2023 S/P angioplasty with stent 01/18/2021 Aortic root enlargement 01/18/2021 Ascending aorta dilatation 01/18/2021 SVT (supraventricular tachycardia) 02/19/2018 Chronic coronary artery disease 12/04/2012 HTN, goal below 130/80 12/04/2012 Dyslipidemia, goal LDL below 70 12/04/2012 S/P primary angioplasty with coronary stent 11/18 documented as of this encounter (statuses as of 06/14/2024) Immunizations Name Administration Dates Next Due COVID-19 mRNA, LNP-s, No Pre serve, 2-Dose Series (Moderna) 01/13/2021,2020 COVID-19, MRNA-LNP, 23-24, P F, 30 MCG/0.3 mL, 12 YRS AND ABOVE, IM (PFIZER-Comirnaty) 09/20/2023 Covid-19, Mrna, Lnp-s, Pf, Bivalent, 50 Mcg, IM, 12 yrs and above (Moderna) 10/02/2021 Season Influenza, Quad, PF, Adjuvanted, 65+ Yrs, IM (FLUAD) 08/17/2023,08/24/2022,08/17/2021, 0 20 Seasonal Influenza, Trivalen t, Adjuvanted, 65+ yrs 08/24/2021 documented as of this encounter Social History Tobacco Use Types Packs/Day Years Used Date Smoking Tobacco: Some Days Cigars Smokeless Tobacco: Never Comments:smokes about 1-4 ci gars per month Alcohol Use Standard Drinks/Week Comments Yes 3.3 (1 standard drin k = 0.6 oz pure alcohol) 5-6 drinks per month, scotch at least once a week Utilities Answer Date Recorded Do you have trouble paying y our heating, water, or electric bill? (Adult - for ages 18 years and over) Not on file 05/05/2024 Is your family able to pay t he heat, water, or electric bill? (Household - for ages 0-17 years) Not on file 05/05/2024 Does your family have access to good internet? (Household - for ages 0-17 years) Not on file 05/05/2024 Social Connections Answer Date Recorded How often do you feel lonely or isolated from those around you? (Adult - for ages 18 years and over) Not on file 05/05/2024 Sex and Gender Information Value Date Recorded Sex Assigned at Not on file Gender Identity Not on file Sexual Orientation Not on file Job Start Date Occupation Industry Not on file Not on file Not on file documented as of this encounter Last Filed Vital Signs Vital Sign Reading Time Taken Comments Blood Pressure 108/68 06/11/2024 1:51 PM EDT Pulse 60 06/11/2024 1:51 PM EDT Temperature - - Respiratory Rate 16 06/11/2024 1:51 PM EDT Oxygen Saturation - - Inhaled Oxygen Concentration - - Weight 100.5 kg (221 lb 8 oz) 06/11/2024 1:51 PM EDT Height - - Body Mass Index 38.02 05/29/2023 2:00 PM EDT documented in this encounter Progress Notes * Trevor Sy PA-C - 06/11/2024 1:54 PM EDT History of Preset Illness: Raúl Zhong is a 83 year old male [place] with Agent Sac exposure here today for routine cardiology follow-up evaluation. Patient hospitalized at [facility] then [facility] in May 2023, presenting with inferior ST segment elevation myocardial infarction. Patient taken urgently to the cardiac catheterization laboratory, undergoing unsuccessful attempted PCI of the RCA by Dr. Baxter. Recurrent chest discomfort associated ST segment elevation led to resumption of IV heparin and IV nitroglycerin as well as transfer to [facility]. EKG with Q-wave infarction. Resting echocardiography revealed an LVEF of 40 to 44% with inferior, posterior, lateral wall motion abnormalities with akinesis therefore PCI was not attempted at [facility]. He was treated medically with heparin x 48 hours and reloaded with clopidogrel 300mg. Patient monitored for complications of unrevascularized inferior CO for over 72 hours prior to discharge without incident. Medication changes included reduction in metoprolol succinate dosing from 100 mg/day to 50 mg/day due to hypotension, reduction in losartan dosing from 100 mg/day to 12.5 mg/day due to hypotension, discontinuation of spironolactone 25 mg/day due to hypotension, and switching simvastatin 80 mg/day to atorvastatin 40 mg/day. Patient returns today feeling okay. Notes plans to stay alive until the age of 87 to honor Donal Garcia who [facility] lacrosse [facility] [email or web address] and was instrumental in getting lacrosse at the [employer] in 2027. Jose on January 22, 2022. Mr. Zhong notes nothing has changed. It is the Parkinson's. Tired all the time. I do not engage in enough activity. I get occasional discomfort in my chest. Winded with activity." Notes trying to go for walk 3 times per week with goal of gradualimprovement in exercise tolerance, hoping to be able to walk from his tailgate into [facility] for the 1st home football game the season. Currently he is able to walk around the block in 12 minutes, stopping three times to rest. No palpitations. No orthopnea or PND. Stable mild lower extremity peripheral edema. No abrupt weight change. No dizziness or syncope. No melena or hematochezia. Past Medical and Surgical History: Atherosclerotic coronary disease. Status post prior PTCA and stenting of the right coronary artery in 1999 and in 2004 ([place], [place]). Status post May 2023 inferior STEMI, unsuccessful PCI of the RCA, managed medically. Aortic root enlargement Ascending aorta enlargement Aortic insufficiency Hypertension Right bundle branch block Hyperlipidemia Obstructive sleep apnea, untreated Insomnia Parkinson's B12 deficiency Osteoarthritis Cervical radiculopathy Lumbar spine stenosis Nasal surgery Glaucoma Cataracts Hemorrhoidectomy Prostate carcinoma BPH. Urinary incontinence. Tonsillectomy as a child. Lumbar spine fusion/intervention at [facility], chornic low back pain Colonic polyp, tubular adenoma Family History: Mother of old age. Father with an CO after stopping his medications. Brother Josue without cardiac issues. Social History: Occasional cigar. Alcohol: Notes enjoying an occasional scotch. No illegal drug use. 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 [employer] graduate. , with dementia. Complete Review of Systems is otherwise as stated above, negative or noncontributory. Review of patient's allergies indicates: Allergen Reactions Lactate Diarrhea Niacin Generalized tingling Torsemide Other (Please comment) Dizziness Current Outpatient Medications Medication Sig Dispense Refill ASPIRIN 81 MG PO TABS one tablet daily FISH OIL OIL daily VOLTAREN 1 % TD GEL apply twice a day MULTIVITAMINS PO CAPS 1 tab daily Melatonin 5 MG Tablet Take 1 Capsule by mouth at bedtime. Saw Coleman 1000 MG CAPS Take by mouth 2 times a day. dorzolamide (TRUSOPT OCUMETER PLUS) 2 % ophthalmic solution 1 Drop in the morning and 1 Drop at noon and 1 Drop before bedtime. Acetaminophen 500 MG Capsule Take 2 Capsules by mouth in the morning and 2 Capsules before bedtime. Tamsulosin HCl 0.4 MG Oral Capsule (Flomax) Take 1 Capsule by mouth in the morning. Polyethylene Glycol 3350 17 GM Oral Packet (Miralax) Take 1 Packet by mouth as needed. Carbidopa-Levodopa 25-100 MG Oral Tablet (Sinemet) Take 1 Tablet by mouth in the morning and 1 Tablet at noon and 1 Tablet in the evening and 1 Tablet before bedtime. Doxepin HCl 10 MG Oral Capsule (SINEquan) Take 2 Capsules by mouth at bedtime. Metoprolol Succinate ER 100 MG Oral Tablet Extended Release 24 Hour (toPROL XL) Take 0.5 Tablets bymouth in the morning. 30 Tablet 0 Atorvastatin Calcium 40 MG Oral Tablet (Lipitor) Take 1 Tablet by mouth in the morning. 30 Tablet 0 Magnesium 250 MG Oral Tablet Take 1 Tablet by mouth in the morning. Carbidopa-Levodopa ER 50-200 MG Oral Tablet Extended Release (Sinemet CR) Take 1.5 Tablets by mouthat bedtime. Entacapone 200 MG Oral Tablet (Comtan) Take 1 Tablet by mouth in the morning and 1 Tablet before bedtime. Vitamin D 25 MCG (1000 UT) Oral Tablet Take by mouth. Clopidogrel Bisulfate 75 MG Oral Tablet (pLAVix) TAKE 1 TABLET DAILY 90 Tablet 3 Isosorbide Mononitrate ER 30 MG Oral Tablet Extended Release 24 Hour (Imdur) Take 0.5 Tablets by mouth daily. 45 Tablet 3 Spironolactone 25 MG Oral Tablet (Aldactone) Take 1 Tablet by mouth in the morning. 90 Tablet 3 Losartan Potassium 25 MG Oral Tablet (Cozaar) TAKE ONE-HALF (1/2) TABLET IN THE MORNING 45 Tablet 3 Nitroglycerin 0.4 MG Sublingual Tablet Sublingual (Nitrostat) DISSOLVE 1 TABLET UNDER THE TONGUE EVERY 5 MINUTES NEEDED WITH CHEST PAIN UP TO 3 DOSES IN 15 MINUTES 25 Tablet 11 No current facility-administered medications for this visit. PHYSICAL EXAMINATION: BP 108/68 | Pulse 60 | Resp 16 | Wt 100.5 kg (221 lb 8 oz) | BMI 38.02 kg/m | BSA 2.13 m Blood pressure on my evaluation was 126/72 General: A&Ox3. NAD. HENT: Normocephalic. Atraumatic. Eyes: PER. Conjunctiva pink, sclera clear. Neck: No carotid bruits. No JVD. Heart: RRR, 66 bpm. Soft systolic ejection murmur. No diastolic murmur. No rub. No gallop. PMI is nondisplaced. Lungs: Diminished. Decrease. Clear. Abdomen: +BS. Soft. Nontender. No masses or organomegaly. Extremities: Trace to 1+ left greater than right lower extremity edema more towards the lower end of the estimate. No clubbing. No cyanosis. Limited neurological examination is without focal deficits. Pulses: radial=2/4, posterior tibial=2/4. Data: August 13, 2017 ANA MARIA Interpretation Summary (as per Dr. Garcia): The stress test was terminated due to fatigue. No symptoms were noted. The stress EKG response showed no evidence of ischemia. The exercise echocardiographic examination is normal without resting left ventricular wall motion abnormalities or inducible ischemia. Aortic Root: 4.4 cm. Ascending Aorta: 4.2 cm. October 12, 2022 TTE Interpretation Summary (as per Dr. Terry): The qualitative LV ejection fraction is 55-59% (normal). The LV wall thickness is mildly increased (concentric). The left ventricular diastolic function is mildly abnormal (grade I). Mild aortic valve sclerosis is present. Mild aortic valve regurgitation is present. The aortic root is mildly enlarged, 4.4 cm. The ascending aorta is moderately enlarged, 4.6 cm. Compared to prior study of 08/24/2021, there is no significant change. May 29, 2023 Coronary Angiography ([facility], as per Dr. Baxter): [id number] vessel bifurcating into LAD and LCx. Mild calcification and diffuse mild disease. LAD-large caliber and transapical. Proximal, mid, and early distal vessel are moderately to severely calcified. There are 3 small to medium caliber diagonal branches. These have diffuse mild disease.The LAD itself has diffuse mild to moderate disease with a focal 60 to 70% stenosis in the distal vessel. LCx-this is large caliber and nondominant. It is mildly calcified proximally. Travels in the AV groove where it gives a large branching OM1 and a medium to large branching OM 2. The vessel then appears to terminate although it does provide an atrial branch and a functional small caliber posterolateral branch arising from the OM 2. There is diffuse mild disease in the circumflex and its branches. [id number] and presumably dominant vessel. It has severe calcification and tortuosity. Thereis diffuse mild to moderate disease in the proximal and mid vessel. The early distal portion of thevessel is 100% occluded with SANTOS 0 flow and stains with contrast suggesting thrombus. PCI of RCA: Despite exhaustive attempts at crossing the lesion and advancing a PTCA balloon we wereunsuccessful in performing PTCA. May 29, 2023 TTE Interpretation Summary (as per Dr. Shell): The examination is limited quality butadequate for evaluation of the referral indication. The qualitative LV ejection fraction is 40-44% (mildly reduced). There is a large sized inferior, posterior, and lateral wall motion abnormality with akinesis of the segments. The right ventricular size is qualitatively normal. The right ventricular systolic function is qualitatively normal. Mild aortic valve regurgitation is present. Mild mitral regurgitation is present. The aortic root is mildly enlarged (4.3 cm). Compared to prior echocardiogram from 10/12/22, there is decrease in LV systolic function and new LV wall motion abnormalities. 2023 TTE Interpretation Summary (as per Dr. Encarnacion): The left ventricular cavity size isnormal. The LV wall thickness is mildly increased (concentric). There is a large sized apical, septal, inferior, and posterior wall motion abnormality with hypokinesis to akinesis of the segments. The qualitative LV ejection fraction is 40-44% (mildly reduced). The left ventricular diastolic function is mildly abnormal (grade I). Mild aortic valve sclerosis is present. Moderate aortic insufficiency is present. Mild mitral regurgitation is present. The aortic root and proximal ascending aorta are moderately enlarged. (4.3 cm/4.3 cm). In comparison to prior study LV systolic function is slightly greater. Degree of aortic insufficiency has increased. BNP 75 pg/mL on January 24, 2024 Selected laboratory work performed through PCP on April 24, 2024: H&H 15.1 and 42.8. Platelet count 214 K. Sodium 139. Potassium 4.0. Chloride 107. Bicarb 27. BUN 14. Creatinine 0.91. Calcium 9.8. Total bilirubin mildly elevated 1.1. AST normal at 20. ALT normal at 22. Alk-phos normal at 42. LDL cholesterol 28 mg/dL on 04/24/2024 ASSESSMENT: ASCVD, status post May 2023 CO as detailed above. Systolic and diastolic congestive heart failure Volume status: Stable minimal hypervolemia. Enlarged aortic root and ascending aorta Aortic insufficiency, non-rheumatic Hypertension Right bundle branch block, asymptomatic Hyperlipidemia. Options of management discussed. Via shared decision-making, we have agreed to the following: RECOMMENDATIONS/PLAN: Increase Isosorbide from 15 mg/day to 30 mg/day.Otherwise, continued as prescribed. Routine cardiology follow-up in 6 months or as needed. ER with emergencies. Trevor Sy PA-C Department of Cardiology Instructions written. Benefits, use, and risks of the above explained. Medication list updated. Prescription for Imdur sent to the pharmacy of his choice electronically. I spent a total of 20-29 minutes (exact time 26 mins) on the date of service in preparation, delivery, and documentation of the care provided to Raúl Zhong excluding any time spent in the performance of separately billed services. This visit involved medical care services related to at least one serious condition or complex condition requiring ongoing care. This chart was completed in part utilizing [employer] Speech Voice Recognition Software. Grammatical errors, random word insertions, prounoun errors, and incomplete s entences are an occasional consequence of this system due to software limitations, ambient noise, and hardware issues. Any formal questions or concerns about the content, text, or information contained within the body of this dictation should be directly addressed to the provider for clarification. documented in this encounter Nursing Notes * Umer Rueda LPN - 06/11/2024 1:51 PM EDT Patient identified by full name and date of Chief Complaint Patient presents with Follow Up 4 month follow up. Tires very easily. Doesn't sleep very well and this is ongoing. Chest discomfortat the top center of chest and will notice when more active- noticeable during PT and last a coupleminutes- at rest will subside. Occasional SOB with activity. Denies dizziness, edema and palpitations. Examination Room: 3 Name: Raúl Zhong Date of : (1940). Reason for Visit: 4 month follow up Interim Hospitalization(s): Denies Problems/Concerns: See chief complaint Chest Pain/SOB: See chief complaint [facility] Discussed: Not applicable [facility] is a way you can talk to your provider online through e-mail. Would you like to sign up? I can activate it for you? DECLINES Patient was instructed to not get up on the exam table until directed and assisted by their provider; patient is to remain seated in the chair/ wheelchair/ exam table for fall prevention and safety reasons. Patient is aware to have assistance to step down off exam table with personnel. Patient voiced full comprehension of instructions. documented in this encounter Plan of Treatment Upcoming Encounters Date Type Department Care Team (Late st Contact Info) Description 12/14/2024 3:30 PM EST Office Visit Cardiology, [facility] [address] [place] [phone] Trevor Sy PA-C [address] [place] [address] Health Maintenance Due Date Last Done Comments DISCUSS TOBACCO CESSATION (REFER TO SMARTSET #[id number]) 1940 Depression Screening 1954 Albumin/Creatinine Ratio 1960 B-12 1960 DTaP,Tdap,and Td Vaccines (1 - Tdap) 1961 COVID-19 Vaccine ( - 2022- season) 2024 09/20/2023, 10/02/2021, 01/13/2021, Additional history exists Influenza Vaccine (FLU shot) (#1) 2024 08/17/2023, 08/24/2022, 08/24/2021, Additional history exists GFR 02/05/2025 02/06/2024, 11/19, 11/07/2023, Additional history exists Pneumococcal Vaccine: 65+ Years Completed 04/15/2018, 07/16/2016, 02/03/2014 Zoster Vaccines Completed 03/23/2020, 01/2020, 12/02/2012 HPV (Gardasil) Vaccine Aged Out No lo nger eligible based on patient's age to complete this topic Hepatitis B Vaccine Aged Out No longe r eligible based on patient's age to complete this topic MENINGOCOCCAL (MENACTRA/MENVEO) Aged Out No longer eligible based on patient's age to complete this topic documented as of this encounter Medical Devices Not on filedocumented as of this encounter Visit Diagnoses Diagnosis Chronic coronary artery disease- Primary Coronary atherosclerosis of unspecified type of vessel, alturas or graft HTN, goal below 130/80 Unspecified essential hypertension Acute on chronic systolic heart failure (HCC) Acute on chronic systolic heart failure S/P angioplasty with stent Postsurgical percutaneous transluminal coronary angioplasty status Aortic root enlargement (HCC) Other specified disorders of arteries and arterioles Ascending aorta dilatation (HCC) Thoracic aortic ectasia Dyslipidemia, goal LDL below 70 Other and unspecified hyperlipidemia documented in this encounter Advance Directives * Full Code (Latest Code Status on File) Date Activated Date Inactivated Comments 05/29/2023 1:45 PM 06/01/2023 4:59 PM This order r eflects the patients wishes and were consensually agreed upon. Question Answer Comments Discussion of Advance Directives occurred with: Patient Care Teams Waste Water Operator Relationship Specialty Start Date End Date eLle Toure DO [address] [place] [address] PCP - General Family Medicine 09/06/22 documented as of this encounter
[2024-06-20 12:22] LABS: Basophils # (auto) 0.06 K/uL (0.00-0.20); Basophils % (auto) 1.1 %; Eosinophils # (auto) 0.13 K/uL (0.00-0.50); Eosinophils % (auto) 2.5 %; Hemoglobin 15.4 g/dl (14.0-18.0); Immature Granulocytes # (auto) 0.01 K/uL (0.01-0.20); Immature Granulocytes % (auto) 0.2 %; Lymphocytes # (auto) 1.76 K/uL (1.20-3.40); Lymphocytes % (auto) 33.7 %; Mean Corpuscular Hemoglobin 32.9 pg (25.0-34.0); Mean Corpuscular Hgb Conc 34.2 g/dL (32.0-36.0); Mean Corpuscular Volume 96.2 fL (80.0-100.0); Mean Platelet Volume 8.8 fL (9.4-12.4); Monocytes # (auto) 0.48 K/uL (0.11-0.59); Monocytes % (auto) 9.2 %; Neutrophils # (auto) 2.79 K/uL (1.40-6.50); Neutrophils % (auto) 53.3 %; Platelet Count 206 K/uL (130-400); RDW Coefficient of Variation 11.9 % (11.5-14.5); RDW Standard Deviation 41.7 fL (36.4-46.3); Red Blood Count 4.68 M/uL (4.70-6.10); White Blood Count 5.23 K/ul (4.8-10.8)
--- NOTE | 2024-06-20 12:40 | Emergency Department Note ---
Impression & Plan Exertional chest pain, CAD (coronary artery disease) ED Provider Note NAME: HOLDEN DAVID AGE: 83 SEX: Male INFORMANT: Patient ED PROVIDER(S): Harish Higuera MD CHIEF COMPLAINT: Exertional chest PLAN: Disposition: Admitted Outpatient prescription management: none Referral: None MEDICAL DECISION MAKING: Patient presented because of exertional chest pain. Workup was initiated. Chest x-ray, ECG, and laboratory testing was unremarkable. Consulted with his sanding machine tender, Dr. Encarnacion. He recommended initiation of heparin due to crescendo angina symptoms and admission. Patient was informed. Consultation was made with Dr. Ismael Tee of the [facility] service. Patient was evaluated in the ER for further management. Care/management discussed with: none Level of care consideration(s): After review of the information above and other included data, I feel the patient requires escalation of care to admission Triage Nursing notes: reviewed and agree them. Vital Signs: reviewed and remarkable for no significant abnormalities Additional History obtained from: none Chronic Medical/Social Conditions affecting care: CAD Prior/ Outside/ External records reviewed: none Differential Diagnosis: Cardiac ischemia, aortic dissection, pulmonary embolism, pneumothorax, pneumonia, pericarditis, myocarditis, esophageal rupture, GERD, cholecystitis, pancreatitis, musculoskeletal, as well as other pathologies. Diagnostics, independently interpreted by me: ECG: Twelve-lead ECG reveals sinus rhythm first-degree block at 71 bpm. Right bundle branch block. There are inferior Q waves present. When compared to 12 well of May 2023 inferior T wave inversions have replaced ST elevation. Anterior T wave inversions are unchanged. Cardiac Monitoring: Cardiac monitoring ordered by me: The patient was placed on continuous cardiac monitoring and observed. It revealed a sinus rhythm with frequent PVCs at 72 bpm. Medical decision rules: none Imaging studies: Chest x-ray. Findings: A chest x-ray was performed and revealed no pneumothorax, effusion, infiltrate, pulmonary edema, free air under the diaphragm, or wide mediastinum. Impression: No acute disease. HPI: 83 year old Male arrives for evaluation of chest pain. This started last few weeks and is exertional. Patient notes that he now experiences exertional chest pain with minimal physical effort. He has a history of CAD and LA. The patient also notes the following associated symptoms, shortness of breath with the pain. The patient has rest as relieving factors. Current pain is rated as 0/10. Patient contacted on-call cardiology and was directed to the emergency department. Pt denies LOC, headache, fevers, chills, diaphoresis, visual changes, neck pain, current chest pain, current breathing difficulties, nausea, vomiting, abdominal pain, back pain, melena, hematochezia, urinary symptoms, numbness, weakness, lymphadenopathy, rash, or other complaints.. PAST MEDICAL HISTORY: See Below, CAD, LA PAST SURGICAL HISTORY: See Below, catheterization SOCIAL HISTORY: See Below, retired HOME MEDICATIONS: See Below ALLERGIES: See Below VITALS: See Below PHYSICAL EXAMINATION: GENERAL: Awake, alert, [id number], in no distress HENT: Normocephalic, atraumatic. Oropharynx unremarkable. EYES: Normal conjunctiva. Sclera non-icteric. NECK: Inspection normal. Non-tender. Supple. No nuchal rigidity. FROM. No masses. RESPIRATORY: Clear to auscultation. No wheezes. No rales. Normal respiratory effort. CARDIAC: Normal rate. Normal rhythm. No murmurs. No rubs. Extremities warm and well perfused. Pulses equal. No JVD. GI: Soft, non-distended. No tenderness to palpation. No rebound or guarding. No masses. RECTAL: Deferred. MUSCULOSKELETAL: Atraumatic. Chest examination reveals no tenderness. The back is symmetrical on inspection without obvious abnormality. There is no CVA tenderness to palpation. No joint edema. LOWER EXTREMITIES: Calves are equal size bilaterally and non-tender. Trace edema. No discoloration. NEURO: Normal sensorium. No sensory or motor deficits noted. SKIN: No rash or jaundice noted. PROCEDURES: none CRITICAL CARE: none OBSERVATION NOTE: none Past Med/Surg History Problem List (Updated 06/20/24 @ 12:40 by Harish Higuera MD) CAD (coronary artery disease) (Acute) Exertional chest pain (Acute) HTN (hypertension) CHF (congestive heart failure) CAD (coronary artery disease) (Chronic) Followed by Dr. Shashank Ross Thoracic aortic aneurysm (Acute) Ct 07/2020 4.5cm Aortic root enlargement Hyperlipidemia Parkinsons disease Prostate cancer (Chronic) Followed By Urology Chronic constipation Gait disturbance Urinary urgency (Acute) Urinary incontinence Lumbar spinal stenosis (Acute) H/O spinal fusion (~03/2020) L3-5 laminectomy with spinal fusion B12 deficiency Sacroiliitis Vitamin D deficiency Medical History Dysphagia STEMI (ST elevation myocardial infarction) (~2022) Mild depression Dysphagia Disorder of kidney and ureter, unspecified Idiopathic polyneuropathy Thoracic aortic aneurysm Adrenal mass Tubular adenoma of colon Osteoarthritis Blood vessel problems in eyes Sleep apnea Surgical History History of tonsillectomy History of cataract extraction History of skin cancer History of colonoscopy History of tooth extraction History of tonsillectomy History of nasal surgery History of heart artery stent History of cardiac cath History of hemorrhoidectomy History of angioplasty Family History Father Congestive heart failure Diabetes Hypertension Grandfather (Paternal) Diabetes Brother Urinary calculus Impaired fasting glucose Prostate cancer Mother Hypertension Denies family history of Ovarian cancer Myocardial infarction Breast cancer Lung cancer Colorectal cancer Stroke Social History Smoking Status: Never smoker Tobacco Type: Cigars Age Started Using Tobacco: 26; Cigarettes Per Day: cigar approx q4 monthly; Second Hand Exposure: No; Do You Dip or Chew Tobacco: No; Hx Alcohol Use: Yes Alcohol type: hard liquor Alcohol Intake Frequency: 2-4 x/Month Hx Substance Use: No Preferred Language: Belarusian Communication Ability: Effective Visual Impairment: Limited Hearing Ability: Use of Hearing Aid Synchronous Motor Assembler Required: No marital status: Current Living Situation: Spouse current occupational status: retired 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 [employer] How many Children do You have: 3 other: he spent 18 years after the [employer] at [facility] Jose David Feels Safe at Home: Yes Childhood Exposure to Second-Hand Smoke: No Diet: regular caffeine: Yes Dental Care, Regularly: Yes Physical Activity Frequency: 3-4 Times per Week Physical Activity Frequency Comment: currently doing PT 2 times weekly Seatbelt Use: always Sunscreen Use: No Assistive Devices: Cane, Glasses and Hearing Aid - Bilateral Allergies Allergies Allergy/AdvReac Type Severity Reaction Status Date / Time niacin Allergy Mild FROM MED Verified 05/14/24 12:[address] FATIMA lactose Allergy Unknown MED RECORD Verified 05/14/24 12:54 duloxetine [From Cymbalta] AdvReac Mild poor Verified 05/14/24 12:54 balance mirtazapine AdvReac Unknown sleep Verified 05/14/24 12:54 disturbance mirabegron [From Myrbetriq] AdvReac dizziness Verified 05/14/24 12:54 Home Meds Home Medications Medication Instructions Recorded Confirmed aspirin 81 mg tablet,delayed 81 mg PO HS 01/27/19 06/20/24 release (Aspir-Low) clopidogrel 75 mg tablet (Plavix) 75 mg PO QAM 01/27/19 06/20/24 saw palmetto 500 mg capsule 1 cap PO BID 01/27/19 06/20/24 multivitamin (Daily Multi-Vitamin 1 tab PO QAM 11/21/20 06/20/24 tablet) omega-3 fatty acids 1,000 mg 1,000 mg PO QAM 11/21/20 06/20/24 capsule (Fish Oil Concentrate) polyethylene glycol 3350 17 17 g PO DAILY PRN Other 05/11/21 06/20/24 gram/dose oral powder (Miralax) acetaminophen 325 mg capsule 500 mg PO BID fever or pain 06/03/23 06/20/24 (Tylenol) magnesium 200 mg tablet 200 mg PO DAILY 07/08/23 06/20/24 melatonin 1 mg tablet 6 mg PO HS PRN Sleep 08/07/23 06/20/24 dorzolamide 2 % eye drops 1 drp ophthalmic (eye) UD 05/14/24 06/20/24 spironolactone 25 mg tablet 12.5 mg PO .qhs 05/14/24 06/20/24 Previous Rx's Medication Instructions Recorded cyanocobalamin (vitamin B-12) 1,000 mcg IM MONTHLY #1 mL 02/15/21 1,000 mcg/mL injection solution cholecalciferol (vitamin D3) 50 50 mcg PO DAILY #30 caps 10/09/21 mcg (2,000 unit) capsule doxepin 10 mg capsule 20 mg (2 x 10 mg) PO PM #180 caps 01/06/24 nitroglycerin 0.4 mg sublingual 0.4 mg sublingual UD PRN Chest 04/03/24 tablet Pain #10 tabs carbidopa 25 mg-levodopa 100 mg 1 tab PO QID 90 days #360 tabs 04/06/24 tablet (Sinemet) carbidopa ER 50 mg-levodopa 200 mg 1.5 tab PO HS 90 days #135 tabs 04/06/24 tablet,extended release entacapone 200 mg tablet 200 mg PO HS 30 days #30 tabs 04/06/24 tamsulosin 0.4 mg capsule 0.4 mg PO DAILY #90 caps 04/29/24 atorvastatin 40 mg tablet 40 mg PO DAILY #90 tabs 05/12/24 losartan 25 mg tablet 25 mg PO DAILY #90 tabs 05/15/24 isosorbide mononitrate 30 mg 15 mg (1/2 x 30 mg) PO DAILY #1 tab 05/26/24 tablet,extended release 24 hr metoprolol succinate 50 mg 50 mg PO DAILY #90 tabs 06/08/24 tablet,extended release 24 hr Results & Data (ED) Vital Signs Vital Signs - 24 hr 06/20/24 11:47 06/20/24 12:03 06/20/24 12:11 Temperature 36.4 C L Temperature Source Temporal Artery Scan Pulse Rate 62 76 Pulse Rate from SpO2 Sensor 75 Respiratory Rate 18 Respiratory Effort / Characteristics Non-Labored Respiratory Depth Normal Respiratory Pattern Regular Blood Pressure 130/86 Blood Pressure Mean 100 Pulse Oximetry 94 93 92 Oxygen Delivery Method Room Air Room Air Sepsis Recent Fever Within 48 Hours No Sepsis New/Unexplained Change in Mental Status N/A Sepsis Action Taken by Nursing No Action Required 06/20/24 12:12 06/20/24 12:30 06/20/24 12:30 Temperature Temperature Source Pulse Rate 73 Pulse Rate from SpO2 Sensor Respiratory Rate Respiratory Effort / Characteristics Respiratory Depth Respiratory Pattern Blood Pressure 108/69 108/69 Blood Pressure Mean 82 82 Pulse Oximetry Oxygen Delivery Method Sepsis Recent Fever Within 48 Hours Sepsis New/Unexplained Change in Mental Status Sepsis Action Taken by Nursing 06/20/24 12:30 06/20/24 12:30 06/20/24 13:06 Temperature Temperature Source Pulse Rate 68 63 Pulse Rate from SpO2 Sensor 61 62 Respiratory Rate 23 16 Respiratory Effort / Characteristics Respiratory Depth Respiratory Pattern Blood Pressure 108/69 Blood Pressure Mean 82 Pulse Oximetry 91 90 Oxygen Delivery Method Room Air Room Air Sepsis Recent Fever Within 48 Hours Sepsis New/Unexplained Change in Mental Status Sepsis Action Taken by Nursing 06/20/24 13:30 06/20/24 13:30 06/20/24 14:00 Temperature Temperature Source Pulse Rate 64 72 Pulse Rate from SpO2 Sensor 50 L Respiratory Rate 20 20 Respiratory Effort / Characteristics Respiratory Depth Respiratory Pattern Blood Pressure 104/40 L Blood Pressure Mean 50 Pulse Oximetry 90 Oxygen Delivery Method Sepsis Recent Fever Within 48 Hours Sepsis New/Unexplained Change in Mental Status Sepsis Action Taken by Nursing Laboratory Data 06/20/24 12:05 06/20/24 12:05 Lab Results 06/20/24 06/20/24 Range/Units 12:05 14:07 WBC 5.23 (4.8-10.8) K/ul RBC 4.68 L (4.70-6.10) M/uL Hgb 15.4 (14.0-18.0) g/dl Hct 45.0 (42.0-52.0) % MCV 96.2 (80.0-100.0) fL MCH 32.9 (25.0-34.0) pg MCHC 34.2 (32.0-36.0) g/dL RDW Std Deviation 41.7 (36.4-46.3) fL RDW Coeff of Joe 11.9 (11.5-14.5) % Plt Count 206 (130-400) K/uL MPV 8.8 L (9.4-12.4) fL Immature Gran % (Auto) 0.2 % Neut % (Auto) 53.3 % Lymph % (Auto) 33.7 % Norman % (Auto) 9.2 % Eos % (Auto) 2.5 % Baso % (Auto) 1.1 % Neut # (Auto) 2.79 (1.40-6.50) K/uL Lymph # (Auto) 1.76 (1.20-3.40) K/uL Norman # (Auto) 0.48 (0.11-0.59) K/uL Eos # (Auto) 0.13 (0.00-0.50) K/uL Baso # (Auto) 0.06 (0.00-0.20) K/uL Immature Gran # (Auto) 0.01 (0.01-0.20) K/uL PT 11.1 (9.0-12.0) Seconds INR 1.0 (0.9-1.1) APTT 26 (21-31) Seconds PTT Ratio 1.0 Heparin Anti-Xa, Unfract < 0.10 L (0.3-0.7) IU/ml Sodium 139 (136-145) mmol/L Potassium 4.1 (3.5-5.1) mmol/L Chloride 107 (98-107) mmol/L Carbon Dioxide 25 (21-32) mmol/L Anion Gap 7 (3-11) BUN 17 (6-23) mg/dl Creatinine 0.94 (0.6-1.4) mg/dl Est Cr Clr Drug Dosing 65.7 ml/min Est GFR ( Amer) 87.8 ml/min Est GFR (Non-Af Amer) 75.7 ml/min BUN/Creatinine Ratio 18.1 (10-20) Glucose 85 (70-99(Fasting)) mg/dl Calcium 9.5 (8.6-10.3) mg/dl Total Bilirubin 1.0 (0.2-1.0) mg/dl AST 22 (13-39) U/L ALT 5 L (7-52) U/L Alkaline Phosphatase 40 (34-104) U/L Troponin I High Sens 8.6 (0-20) pg/ml Total Protein 6.8 (6.0-8.3) gm/dl Albumin 4.5 (3.4-5.0) gm/dl Globulin 2.3 L (2.5-4.0) gm/dl Albumin/Globulin Ratio 2.0 (0.9-2) Lipase 43 (11-82) U/L Administered Medications Heparin Sodium/Dextrose (Heparin Sodium/Dextrose) 25,000 units in 500 mls @ 18 mls/hr IV .Q24H [facility]; Protocol Stop: 07/20/24 13:59 Last Admin: 06/20/24 14:27 Dose: 900 units/hr, 18 mls/hr Documented By: KADY Co-signed By: MARGAUX Discontinued Medications Heparin Sodium (Porcine) (Heparin Sod (Porcine) 1000 Unit/Ml) 4,000 units IV NOW ONE Stop: 06/20/24 14:16 Last Admin: 06/20/24 14:26 Dose: 4,000 units Documented By: KADY Co-signed By: MARGAUX Imaging Data Radiologist's Impression: Chest X-Ray 06/20/24 11:54 XR chest 1V portable CLINICAL HISTORY: Chest pain, nonspecific TECHNIQUE: Single frontal radiograph of the chest was obtained. Comparison: Comparison is made to chest radiograph 05/29/2023 FINDINGS: No lines and tubes are seen. Calcified aortic knob is seen. The lungs are clear. No evidence of pleural effusion or pneumothorax. IMPRESSION: No acute chest disease. ACT 112: Negative or not required by law. Electronically signed by: Ajay Casas M.D. 06/20/2024 12:47 PM Discharge Plan Visit Data Chief Complaint: Chest Pain Stated Complaint: CHEST PAINS ED Provider: Harish Higuera Discharge Problem: Exertional chest pain, CAD (coronary artery disease) Forms Stand Alone Forms: My [facility] [place] [employer] Prescriptions Prescriptions: No Action polyethylene glycol 3350 [Miralax] 17 gram/dose powder 17 g PO DAILY PRN (Reason: Other) cholecalciferol (vitamin D3) 50 mcg (2,000 unit) capsule 50 mcg PO DAILY Qty: 30 7RF doxepin 10 mg capsule 20 mg PO PM Qty: 180 3RF nitroglycerin 0.4 mg tablet, sublingual 0.4 mg sublingual UD PRN (Reason: Chest Pain) Qty: 10 3RF atorvastatin 40 mg tablet 40 mg PO DAILY Qty: 90 3RF losartan 25 mg tablet 25 mg PO DAILY Qty: 90 3RF isosorbide mononitrate 30 mg tablet extended release 24 hr 15 mg PO DAILY Qty: 1 0RF metoprolol succinate 50 mg tablet extended release 24 hr 50 mg PO DAILY Qty: 90 3RF acetaminophen [Tylenol] 325 mg capsule 500 mg PO BID dorzolamide 2 % drops 1 drp OP UD Rx Instructions: left eye bid fill history 03/26/24 for 90 day supply. Unable to verify with pt, no mention of medication as he went over his list cyanocobalamin (vitamin B-12) 1,000 mcg/mL solution 1,000 mcg IM MONTHLY Qty: 1 2RF magnesium 200 mg tablet 200 mg PO DAILY tamsulosin 0.4 mg capsule 0.4 mg PO DAILY Qty: 90 3RF melatonin 1 mg tablet 6 mg PO HS PRN (Reason: Sleep) spironolactone 25 mg tablet 12.5 mg PO .qhs carbidopa-levodopa 50-200 mg tablet extended release 1.5 tab PO HS 90 Days Qty: 135 2RF carbidopa-levodopa [Sinemet] 25-100 mg tablet 1 tab PO QID 90 Days Qty: 360 4RF entacapone 200 mg tablet 200 mg PO HS 30 Days Qty: 30 4RF multivitamin [Daily Multi-Vitamin] Tablet 1 tab PO QAM omega-3 fatty acids [Fish Oil Concentrate] 1,000 mg capsule 1,000 mg PO QAM clopidogrel [Plavix] 75 mg Tablet 75 mg PO QAM Hold Instructions: until procedure done aspirin [Aspir-Low] 81 mg Tablet,Delayed Release (Dr/Ec) 81 mg PO HS saw palmetto 500 mg Capsule 1 cap PO BID Referrals Referrals: Lele Toure DO [Primary Care Provider] -
[2024-06-20 12:41] LABS: Albumin Level 4.5 gm/dl (3.4-5.0); BUN Creatinine Ratio 18.1 (10-20); Calcium 9.5 mg/dl (8.6-10.3); Creatinine Clr Calc Pharmacy 65.7 ml/min; Est GFR (African American) 87.8 ml/min; Est GFR (Non-African American) 75.7 ml/min; Globulin 2.3 gm/dl (2.5-4.0); Potassium 4.1 mmol/L (3.5-5.1); Total Protein 6.8 gm/dl (6.0-8.3)
[2024-06-20 12:47] LABS: Partial Thromboplastin Time 26 Seconds (21-31); Prothrombin Time 11.1 Seconds (9.0-12.0); Troponin I High Sensitivity 8.6 pg/ml (0-20)
--- NOTE | 2024-06-20 12:49 | XRay Report ---
XR chest 1V portable CLINICAL HISTORY: Chest pain, nonspecific TECHNIQUE: Single frontal radiograph of the chest was obtained. Comparison: Comparison is made to chest radiograph 05/29/2023 FINDINGS: No lines and tubes are seen. Calcified aortic knob is seen. The lungs are clear. No evidence of pleur al effusion or pneumothorax. IMPRESSION: No acute chest disease. ACT 112: Negative or not required by law. Electronically signed by: Ajay Casas M.D. 06/20/2024 12:47 PM
[2024-06-20] MEDS ORDERED: Heparin IV Adult Wt-Based Low-Dose w/ INITIAL Bolus Protocol IV STA (13:44)
[2024-06-20] MEDS ORDERED: HEPARIN SOD (PORCINE) 1000 UNIT/ML IV ONE (13:59)
[2024-06-20] MEDS: HEPARIN SOD (PORCINE) 1000 UNIT/ML IV ONE ×2 (14:26→22:50)
[2024-06-20] MEDS: HEPARIN SODIUM/DEXTROSE 25,000 UNITS/500 ML BAG IV SCH (14:27)
--- NOTE | 2024-06-20 14:31 | History & Physical Report ---
Date of Service June 20, 2024 Assessment & Plan (1) Exertional chest pain: (2) CAD (coronary artery disease): (3) HTN (hypertension): (4) CHF (congestive heart failure): (5) Hyperlipidemia: (6) Parkinsons disease: (7) Prostate cancer: (8) H/O spinal fusion: Plan Exertional chest pain/CAD/hypertension/history of IA/history of stents- Had evaluation last year, and determined that medical management is indicated The patient will be admitted to telemetry for serial cardiac enzymes, serial EKG's, cardiac rhythm monitoring and a 2-D echocardiogram with Dopplers. Continue aspirin, clopidogrel,isosorbide mononitrate, losartan and metoprolol succinate Continue heparin drip by cardiology Patient was noted to have a few asymptomatic runs of ventricular bigeminy while in the ED Initial troponin 8.6 with follow-up 10.0 Parkinson's- Continue carbidopa levodopa ,carbidopa ER-levodopa, and entacapone BPH- continue tamsulosin History of Present Illness Chief Complaint: The patient presents to the emergency department with left upper sternal chest pain that he reports began when he was trying to increase his physical activity for his Parkinson's exercise class over the past few weeks. The pain worsened today, he spoke with his general production laborer, and was referred to the emergency department for assessment. Primary Care Provider: Lele Toure DO The patient is an 83-year-old male medical history including CAD, hypertension, CHF, thoracic aortic aneurysm lipidemia, Parkinson's disease, prostate cancer, gait disturbance, lumbar spinal stenosis and sacroiliitis. He presents to the emergency department after developing worsening left upper sternal chest pain after increasing his level of physical activity over the past few weeks and attempts to get ready for a Parkinson's exercise class. The pain does not radiate into her shoulder or neck. He spoke with his general production laborer, who recommended patient come to the ED. Allergies Allergy/AdvReac Type Severity Reaction Status Date / Time niacin Allergy Mild FROM MED Verified 05/14/24 12:[address] FATIMA lactose Allergy Unknown MED RECORD Verified 05/14/24 12:54 duloxetine [From Cymbalta] AdvReac Mild poor Verified 05/14/24 12:54 balance mirtazapine AdvReac Unknown sleep Verified 05/14/24 12:54 disturbance mirabegron [From Myrbetriq] AdvReac dizziness Verified 05/14/24 12:54 Home Medications Medication Instructions Recorded Confirmed Type aspirin 81 mg tablet,delayed 81 mg PO HS 01/27/19 06/20/24 History release (Aspir-Low) clopidogrel 75 mg tablet (Plavix) 75 mg PO QAM 01/27/19 06/20/24 History saw palmetto 500 mg capsule 1 cap PO BID 01/27/19 06/20/24 History multivitamin (Daily Multi-Vitamin 1 tab PO QAM 11/21/20 06/20/24 History tablet) omega-3 fatty acids 1,000 mg 1,000 mg PO QAM 11/21/20 06/20/24 History capsule (Fish Oil Concentrate) cyanocobalamin (vitamin B-12) 1,000 mcg IM MONTHLY #1 mL 02/15/21 06/20/24 Rx 1,000 mcg/mL injection solution polyethylene glycol 3350 17 17 g PO DAILY PRN Other 05/11/21 06/20/24 History gram/dose oral powder (Miralax) cholecalciferol (vitamin D3) 50 50 mcg PO DAILY #30 caps 10/09/21 06/20/24 Rx mcg (2,000 unit) capsule acetaminophen 325 mg capsule 500 mg PO BID fever or pain 06/03/23 06/20/24 History (Tylenol) magnesium 200 mg tablet 200 mg PO DAILY 07/08/23 06/20/24 History melatonin 1 mg tablet 6 mg PO HS PRN Sleep 08/07/23 06/20/24 History doxepin 10 mg capsule 20 mg (2 x 10 mg) PO PM #180 caps 01/06/24 06/20/24 Rx nitroglycerin 0.4 mg sublingual 0.4 mg sublingual UD PRN Chest 04/03/24 06/20/24 Rx tablet Pain #10 tabs carbidopa 25 mg-levodopa 100 mg 1 tab PO QID 90 days #360 tabs 04/06/24 06/20/24 Rx tablet (Sinemet) carbidopa ER 50 mg-levodopa 200 mg 1.5 tab PO HS 90 days #135 tabs 04/06/24 06/20/24 Rx tablet,extended release entacapone 200 mg tablet 200 mg PO HS 30 days #30 tabs 04/06/24 06/20/24 Rx tamsulosin 0.4 mg capsule 0.4 mg PO DAILY #90 caps 04/29/24 06/20/24 Rx atorvastatin 40 mg tablet 40 mg PO DAILY #90 tabs 05/12/24 06/20/24 Rx dorzolamide 2 % eye drops 1 drp ophthalmic (eye) UD 05/14/24 06/20/24 History spironolactone 25 mg tablet 12.5 mg PO .qhs 05/14/24 06/20/24 History losartan 25 mg tablet 25 mg PO DAILY #90 tabs 05/15/24 06/20/24 Rx isosorbide mononitrate 30 mg 15 mg (1/2 x 30 mg) PO DAILY #1 tab 05/26/24 06/20/24 Rx tablet,extended release 24 hr metoprolol succinate 50 mg 50 mg PO DAILY #90 tabs 06/08/24 06/20/24 Rx tablet,extended release 24 hr Past Med/Surg History Problem List (Updated 06/20/24 @ 12:40 by Harish Higuera MD) CAD (coronary artery disease) (Acute) Exertional chest pain (Acute) HTN (hypertension) CHF (congestive heart failure) CAD (coronary artery disease) (Chronic) Followed by Dr. Shashank Ross Thoracic aortic aneurysm (Acute) Ct 07/2020 4.5cm Aortic root enlargement Hyperlipidemia Parkinsons disease Prostate cancer (Chronic) Followed By Urology Chronic constipation Gait disturbance Urinary urgency (Acute) Urinary incontinence Lumbar spinal stenosis (Acute) H/O spinal fusion (~03/2020) L3-5 laminectomy with spinal fusion B12 deficiency Sacroiliitis Vitamin D deficiency Medical History Dysphagia STEMI (ST elevation myocardial infarction) (~2022) Mild depression Dysphagia Disorder of kidney and ureter, unspecified Idiopathic polyneuropathy Thoracic aortic aneurysm Adrenal mass Tubular adenoma of colon Osteoarthritis Blood vessel problems in eyes Sleep apnea Surgical History History of tonsillectomy History of cataract extraction History of skin cancer History of colonoscopy History of tooth extraction History of tonsillectomy History of nasal surgery History of heart artery stent History of cardiac cath History of hemorrhoidectomy History of angioplasty Family History Father Congestive heart failure Diabetes Hypertension Grandfather (Paternal) Diabetes Brother Urinary calculus Impaired fasting glucose Prostate cancer Mother Hypertension Denies family history of Ovarian cancer Myocardial infarction Breast cancer Lung cancer Colorectal cancer Stroke Social History Smoking Status: Never smoker Tobacco Type: Cigars Age Started Using Tobacco: 26; Cigarettes Per Day: cigar approx q4 monthly; Second Hand Exposure: No; Do You Dip or Chew Tobacco: No; Hx Alcohol Use: Yes Alcohol type: hard liquor Alcohol Intake Frequency: 2-4 x/Month Hx Substance Use: No Preferred Language: Urdu Communication Ability: Effective Visual Impairment: Limited Hearing Ability: Use of Hearing Aid Export Specialist Required: No marital status: Current Living Situation: Spouse current occupational status: retired current occupation: 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 [employer] How many Children do You have: 3 other: he spent 18 years after the [employer] at [facility] [place] David Feels Safe at Home: Yes Childhood Exposure to Second-Hand Smoke: No Diet: regular caffeine: Yes Dental Care, Regularly: Yes Physical Activity Frequency: 3-4 Times per Week Physical Activity Frequency Comment: currently doing PT 2 times weekly Seatbelt Use: always Sunscreen Use: No Assistive Devices: Cane, Glasses and Hearing Aid - Bilateral Review of Systems Constitutional: The patient denies palpitations, cough, lower extremity swelling, sore throat, fevers, chills, sweats, nausea, vomiting, diarrhea , constipation, abdominal pain, pelvic pain, blood in urine or stool, dysuria, urinary frequency or urgency, lightheadedness, dizziness, headache, memory loss, loss of consciousness, rash, abnormal bruising or bleeding, Focal weakness, numbness or tingling in arms or legs, generalized arthralgias or myalgias, back or neck pain, or night sweats. The review of systems is otherwise negative other than for that already noted above, and at least 10 systems have been reviewed. Physical Exam Physical Exam: The patient is awake, alert and oriented 3, well developed and well nourished, normocephalic and atraumatic, lying in bed and in no acute distress. HEENT--PERRL, EOMI, mucous membranes and oropharynx mildly dry. Neck--supple. No JVD. No bruits. Thyroid normal, trachea midline, no adenopathy. Heart--normal S1 and S2. No murmurs, rubs or gallops. Lungs--clear bilaterally, no respiratory distress, no accessory muscle use. Abdomen--normal bowel sounds and soft. Nontender. Nondistended, no hernias or masses, no organomegaly. Extremities--no cyanosis or clubbing. No edema. There are good distal pulses b/l. Dermatologic--normal skin turgor, normal color, no abnormal lymph nodes, no rash. Neurologic--cranial nerves II through XII grossly intact. Rheumatologic--normal range of motion. Psychiatric--normal affect. Results & Data Results & Data Vital Signs (Past 12 Hours) Vital Signs Temp Pulse Resp BP Pulse Ox O2 Del Method 06/20/24 14:00 72 20 06/20/24 13:30 64 20 90 06/20/24 13:30 104/40 L 06/20/24 13:06 63 16 90 Room Air 06/20/24 12:30 68 23 91 Room Air 06/20/24 12:30 108/69 06/20/24 12:30 108/69 06/20/24 12:30 108/69 06/20/24 12:12 73 06/20/24 12:11 76 92 Room Air 06/20/24 12:03 93 06/20/24 11:47 36.4 C L 62 18 130/86 94 Room Air Laboratory Results Laboratory Results WBC 5.23 K/ul (4.8-10.8) 06/20/24 12:05 RBC 4.68 M/uL (4.70-6.10) L 06/20/24 12:05 Hgb 15.4 g/dl (14.0-18.0) 06/20/24 12:05 Hct 45.0 % (42.0-52.0) 06/20/24 12:05 MCV 96.2 fL (80.0-100.0) 06/20/24 12:05 MCH 32.9 pg (25.0-34.0) 06/20/24 12:05 MCHC 34.2 g/dL (32.0-36.0) 06/20/24 12:05 RDW Std Deviation 41.7 fL (36.4-46.3) 06/20/24 12:05 RDW Coeff of Joe 11.9 % (11.5-14.5) 06/20/24 12:05 Plt Count 206 K/uL (130-400) 06/20/24 12:05 MPV 8.8 fL (9.4-12.4) L 06/20/24 12:05 Immature Gran % (Auto) 0.2 % 06/20/24 12:05 Neut % (Auto) 53.3 % 06/20/24 12:05 Lymph % (Auto) 33.7 % 06/20/24 12:05 Young % (Auto) 9.2 % 06/20/24 12:05 Eos % (Auto) 2.5 % 06/20/24 12:05 Baso % (Auto) 1.1 % 06/20/24 12:05 Neut # (Auto) 2.79 K/uL (1.40-6.50) 06/20/24 12:05 Lymph # (Auto) 1.76 K/uL (1.20-3.40) 06/20/24 12:05 Young # (Auto) 0.48 K/uL (0.11-0.59) 06/20/24 12:05 Eos # (Auto) 0.13 K/uL (0.00-0.50) 06/20/24 12:05 Baso # (Auto) 0.06 K/uL (0.00-0.20) 06/20/24 12:05 Immature Gran # (Auto) 0.01 K/uL (0.01-0.20) 06/20/24 12:05 PT 11.1 Seconds (9.0-12.0) 06/20/24 12:05 INR 1.0 (0.9-1.1) 06/20/24 12:05 APTT 26 Seconds (21-31) 06/20/24 12:05 PTT Ratio 1.0 06/20/24 12:05 Heparin Anti-Xa, Unfract < 0.10 IU/ml (0.3-0.7) L 06/20/24 14:07 Sodium 139 mmol/L (136-145) 06/20/24 12:05 Potassium 4.1 mmol/L (3.5-5.1) 06/20/24 12:05 Chloride 107 mmol/L (98-107) 06/20/24 12:05 Carbon Dioxide 25 mmol/L (21-32) 06/20/24 12:05 Anion Gap 7 (3-11) 06/20/24 12:05 BUN 17 mg/dl (6-23) 06/20/24 12:05 Creatinine 0.94 mg/dl (0.6-1.4) 06/20/24 12:05 Est Cr Clr Drug Dosing 65.7 ml/min 06/20/24 12:05 Est GFR ( Amer) 87.8 ml/min 06/20/24 12:05 Est GFR (Non-Af Amer) 75.7 ml/min 06/20/24 12:05 BUN/Creatinine Ratio 18.1 (10-20) 06/20/24 12:05 Glucose 85 mg/dl (70-99(Fasting)) 06/20/24 12:05 Calcium 9.5 mg/dl (8.6-10.3) 06/20/24 12:05 Total Bilirubin 1.0 mg/dl (0.2-1.0) 06/20/24 12:05 AST 22 U/L (13-39) 06/20/24 12:05 ALT 5 U/L (7-52) L 06/20/24 12:05 Alkaline Phosphatase 40 U/L (34-104) 06/20/24 12:05 Troponin I High Sens 10.0 pg/ml (0-20) 06/20/24 14:08 Total Protein 6.8 gm/dl (6.0-8.3) 06/20/24 12:05 Albumin 4.5 gm/dl (3.4-5.0) 06/20/24 12:05 Globulin 2.3 gm/dl (2.5-4.0) L 06/20/24 12:05 Albumin/Globulin Ratio 2.0 (0.9-2) 06/20/24 12:05 Lipase 43 U/L (11-82) 06/20/24 12:05 Impressions Chest X-Ray 06/20/24 11:54 XR chest 1V portable CLINICAL HISTORY: Chest pain, nonspecific TECHNIQUE: Single frontal radiograph of the chest was obtained. Comparison: Comparison is made to chest radiograph 05/29/2023 FINDINGS: No lines and tubes are seen. Calcified aortic knob is seen. The lungs are clear. No evidence of pleural effusion or pneumothorax. IMPRESSION: No acute chest disease. ACT 112: Negative or not required by law. Electronically signed by: Ajay Casas M.D. 06/20/2024 12:47 PM Code Status & VTE Plan Code Status Full code VTE Prophylaxis Plan VTE Prophylaxis will be ordered: Yes PG Care Time/CCT Total # of Minutes Spent Total Time Spent with Patient: Total time spent is greater than 50% in coordination of care (as documented) at patient's floor/unit and/or counseling patient: Coding Level of Care Code 48040 INT INP/OBS CARE 3/75MIN Diagnoses Exertional chest pain R07.9 CAD (coronary artery disease) I25.10 HTN (hypertension) I10 CHF (congestive heart failure) I50.9 Hyperlipidemia E78.5 Parkinsons disease G20 Prostate cancer C61 H/O spinal fusion Z98.1
[2024-06-20 14:49] LABS: ANTI-Xa, UFH(UnfractionatedHep < 0.10 IU/ml (0.3-0.7)
[2024-06-20] MEDS ORDERED: NITROGLYCERIN SL 0.4 MG/TAB TAB SL PRN (15:57)
[2024-06-20] MEDS ORDERED: CYANOCOBALAMIN 1000 MCG/ML VIAL IM SCH (15:57)
[2024-06-20] MEDS ORDERED: ONDANSETRON INJ 2 MG/ML 2 ML VIAL IV PRN (15:57)
[2024-06-20] MEDS ORDERED: POLYETHYLENE (MIRALAX) 17 GM PACK PO PRN (15:57)
[2024-06-20] MEDS: CARBIDOPA/LEVODOPA 25/100MG TAB PO SCH (16:54)
[2024-06-20] MEDS: SPIRONOLACTONE 12.5 MG TAB PO SCH (17:31)
[2024-06-20] MEDS ORDERED: NON-FORMULARY MEDICATION (Saw Palmetto 500 mg Capsule) PO SCH (21:00)
[2024-06-20] MEDS: CARBIDOPA/LEVODOPA 50/200MG EXT REL TAB PO SCH (21:04)
[2024-06-20] MEDS: DOXEPIN HCL 10 MG CAPSULE PO SCH (21:04)
[2024-06-20] MEDS: ENTACAPONE 200 MG TAB PO SCH (21:04)
[2024-06-20] MEDS: ASPIRIN 81 MG ECTAB PO SCH (21:05)
[2024-06-20] MEDS: ACETAMINOPHEN 500 MG TAB PO SCH (21:05)
[2024-06-20] MEDS: MELATONIN 3 MG TAB PO PRN (22:06)
[2024-06-20 22:16] LABS: ANTI-Xa, UFH(UnfractionatedHep 0.19 IU/ml (0.3-0.7)
[2024-06-21 05:13] LABS: Basophils # (auto) 0.06 K/uL (0.00-0.20); Basophils % (auto) 1.3 %; Eosinophils # (auto) 0.13 K/uL (0.00-0.50); Eosinophils % (auto) 2.8 %; Hematocrit (blood only) 41.6 % (42.0-52.0); Hemoglobin 14.3 g/dl (14.0-18.0); Immature Granulocytes # (auto) 0.01 K/uL (0.01-0.20); Immature Granulocytes % (auto) 0.2 %; Lymphocytes # (auto) 1.56 K/uL (1.20-3.40); Lymphocytes % (auto) 33.4 %; Mean Corpuscular Hgb Conc 34.4 g/dL (32.0-36.0); Mean Corpuscular Volume 96.1 fL (80.0-100.0); Mean Platelet Volume 8.8 fL (9.4-12.4); Monocytes # (auto) 0.36 K/uL (0.11-0.59); Monocytes % (auto) 7.7 %; Neutrophils # (auto) 2.55 K/uL (1.40-6.50); Neutrophils % (auto) 54.6 %; Platelet Count 183 K/uL (130-400); RDW Coefficient of Variation 11.8 % (11.5-14.5); RDW Standard Deviation 41.1 fL (36.4-46.3); Red Blood Count 4.33 M/uL (4.70-6.10); White Blood Count 4.67 K/ul (4.8-10.8)
[2024-06-21 05:25] LABS: Albumin Level 4.1 gm/dl (3.4-5.0); BUN Creatinine Ratio 20.2 (10-20); Calcium 9.4 mg/dl (8.6-10.3); Creatinine Clr Calc Pharmacy 65.5 ml/min; Est GFR (African American) 87.8 ml/min; Est GFR (Non-African American) 75.7 ml/min; Magnesium 1.7 mg/dl (1.7-2.4); Phosphorus 3.4 mg/dl (2.5-4.9); Potassium 3.8 mmol/L (3.5-5.1)
[2024-06-21 05:35] LABS: Troponin I High Sensitivity 13.9 pg/ml (0-20)
[2024-06-21 05:37] LABS: ANTI-Xa, UFH(UnfractionatedHep 0.42 IU/ml (0.3-0.7)
--- NOTE | 2024-06-21 06:53 | Electrocardiogram Report ---
Test Reason : Blood Pressure : / mmHG Vent. Rate : 071 BPM Atrial Rate : 071 BPM P-R Int : 220 ms QRS Dur : 132 ms QT Int : 384 ms P-R-T Axes : -02 -18 -34 degrees QTc Int : 417 ms Sinus rhythm with 1st degree A-V block Right bundle branch block Inferior infarct (cited on or before 29-MAY-2023) Abnormal ECG When compared with ECG of 29-MAY-2023 11:01, ST no longer elevated in Inferior leads Inverted T waves have replaced nonspecific T wave abnormality in Inferior leads T wave inversion now evident in Anterior leads Confirmed by Vince Blank ([id number] on 06/21/2024 6:53:17 AM Referred By: REFERRED SELF Confirmed By:Timoteo Blank
[2024-06-21] MEDS: TAMSULOSIN HCL 0.4 MG CAP PO SCH (08:21)
[2024-06-21] MEDS: ATORVASTATIN 40 MG TAB PO SCH (08:21)
[2024-06-21] MEDS: METOPROLOL SUCC 50MG EXT REL TAB PO SCH (08:21)
[2024-06-21] MEDS: ISOSORBIDE MONO EXTENDED REL 30 MG TABCR PO SCH (08:21)
[2024-06-21] MEDS: OMEGA-3 (PURIFIED FISH OIL) 1 GM CAP PO SCH (08:21)
[2024-06-21] MEDS: CLOPIDOGREL BISULFATE 75 MG TAB PO SCH (08:21)
[2024-06-21] MEDS: CHOLECALCIFEROL 25 MCG (1000 UNITS) TAB PO SCH (08:22)
[2024-06-21] MEDS: LOSARTAN POTASSIUM 25 MG TAB PO SCH (08:22)
[2024-06-21] MEDS: MAGNESIUM OXIDE 400 MG TAB PO SCH (08:22)
--- NOTE | 2024-06-21 08:56 | Cardiology Consultation ---
Date of Consultation June 21, 2024 Assessment & Plan (1) Unstable angina: (2) Exertional chest pain: (3) CAD (coronary artery disease): (4) Thoracic aortic aneurysm: (5) Aortic root enlargement: (6) Hyperlipidemia: (7) Parkinsons disease: (8) Aortic insufficiency: Plan Complex 83-year-old male admitted with chest discomfort high concerning for unstable angina. EKG without acute change. High-sensitivity troponin within normal range. Chest x-ray clear. Creatinine normal. Recommend NPO status after midnight tonight for cardiac catheterization in AM of 06/22/2024. Continue metoprolol succinate, aspirin, clopidogrel, Losartan, isosorbide, moderate intensity statin therapy, spironolactone, and IV heparin. This visit was a split-shared visit with the substantive portion of the medical decision making performed by the supervising compensation administrator/billing provider. Please refer to Dr. Encarancion's documentation. Supervising Physician Co-Signing Physician Notes Patient seen and personally examined, chart, medications telemetry reviewed. Full assessment and plan as outlined above. Management discussed with advanced provider and personally endorsed 83-year-old male presenting with symptoms consistent with crescendo angina culminating in rest chest pain date of admission. No evidence of acute myocardial infarction by enzyme or EKG criteria. Now asymptomatic on IV heparin. Discussed above findings in detail with the patient. Will recommend diagnostic coronary angiography. Patient somewhat disgruntled about plan but otherwise agreeable. Will keep n.p.o. after midnight History of Present Illness Reason for Consultation: Unstable angina Requesting Physician: Dr. Ismael Tee Attending Physician: Dr. Srinath Grimes, History of Present Illness History of Preset Illness: MR. Raúl Zhong is a 83 year old male [place] who is being seen today as noted, evaluation of chest discomfort. The patient describes 2 out of 10 substernal nonradiating chest discomfort associated with dyspnea that began a few months ago and has progressed in regards to frequency and maybe severity. The discomfort occurs with minimal activity and can last for up to 3 hours. Patient recently unable to partake in PT due to the discomfort. No resting or nocturnal discomfort. No improvement noted with the recent titration of Isosorbide mononitrate from 15 mg/day to 30 mg/day. EKG on presentation revealed sinus rhythm at 71 bpm with a first-degree AV block, right bundle branch block, old inferior infarct, stable inferior lateral STT wave abnormality. High-sensitivity troponin I as follows: 10.0 -> 9.7-> 9.0-> 13.9. Chest x-ray without acute chest disease. Creatinine normal at 0.94. H&H 14.3 and 41.6. Continuous telemetry monitoring reviewed since admission, demonstrating sinus throughout with heart rates predominantly in the 60s to 70s, occasional ventricular ectopy. No chest pain since admission. No palpitations. No resting or nocturnal shortness of breath. No cough or chest congestion. no orthopnea or PND. Chronic stable left greater than right lower extremity edema. Recent use of loop diuretic therapy was not well tolerated (dizziness). No syncope. No fevers or chills. No rash. No change in appetite. No melena, hematochezia, or gross hematuria. Notes plans for dermatological surgery tomorrow. Brother in law recently passed, arrangements scheduled Saturday. Scheduled to partake in PT on . Patient hospitalized at [facility] then [facility] in May 2023, presenting with inferior ST segment elevation myocardial infarction. Patient taken urgently to the cardiac catheterization laboratory, undergoing unsuccessful attempted PCI of the RCA by Dr. Baxter. Recurrent chest discomfort associated ST segment elevation led to resumption of IV heparin and IV nitroglycerin as well as transfer to [facility]. EKG with Q- wave infarction. Resting echocardiography revealed an LVEF of 40 to 44% with inferior, posterior, lateral wall motion abnormalities with akinesis therefore PCI was not attempted at [facility]. He was treated medically with heparin x 48 hours and reloaded with clopidogrel 300mg. Patient monitored for complications of unrevascularized inferior NH for over 72 hours prior to discharge without incident. Medication changes included reduction in metoprolol succinate dosing from 100 mg/day to 50 mg/day due to hypotension, reduction in losartan dosing from 100 mg/day to 12.5 mg/day due to hypotension, discontinuation of spironolactone 25 mg/day due to hypotension, and switching simvastatin 80 mg/day to atorvastatin 40 mg/day. Past Medical and Surgical History: Atherosclerotic coronary disease. Status post prior PTCA and stenting of the right coronary artery in 1999 and in 2004 ([place], [place]). Status post May 2023 inferior STEMI, unsuccessful PCI of the RCA, managed medically. Aortic root enlargement Ascending aorta enlargement Aortic insufficiency Hypertension Right bundle branch block Hyperlipidemia Obstructive sleep apnea, untreated Insomnia Parkinson's B12 deficiency Osteoarthritis Cervical radiculopathy Lumbar spine stenosis Nasal surgery Glaucoma Cataracts Hemorrhoidectomy Prostate carcinoma BPH. Urinary incontinence. Tonsillectomy as a child. Lumbar spine fusion/intervention at [facility], chornic low back pain Colonic polyp, tubular adenoma Family History: Mother of old age. Father with an NH after stopping his medications. Brother Josue without cardiac issues. Social History: Occasional cigar. Alcohol: Notes enjoying an occasional scotch. No illegal drug use. 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 [employer] graduate. , with dementia. Allergies Allergy/AdvReac Type Severity Reaction Status Date / Time niacin Allergy Mild FROM MED Verified 05/14/24 12:[address] FATIMA lactose Allergy Unknown MED RECORD Verified 05/14/24 12:54 duloxetine [From Cymbalta] AdvReac Mild poor Verified 05/14/24 12:54 balance mirtazapine AdvReac Unknown sleep Verified 05/14/24 12:54 disturbance mirabegron [From Myrbetriq] AdvReac dizziness Verified 05/14/24 12:54 Home Medications Medication Instructions Recorded Confirmed Type aspirin 81 mg tablet,delayed 81 mg PO HS 01/27/19 06/20/24 History release (Aspir-Low) clopidogrel 75 mg tablet (Plavix) 75 mg PO QAM 01/27/19 06/20/24 History saw palmetto 500 mg capsule 1 cap PO BID 01/27/19 06/20/24 History multivitamin (Daily Multi-Vitamin 1 tab PO QAM 11/21/20 06/20/24 History tablet) omega-3 fatty acids 1,000 mg 1,000 mg PO QAM 11/21/20 06/20/24 History capsule (Fish Oil Concentrate) cyanocobalamin (vitamin B-12) 1,000 mcg IM MONTHLY #1 mL 02/15/21 06/20/24 Rx 1,000 mcg/mL injection solution polyethylene glycol 3350 17 17 g PO DAILY PRN Other 05/11/21 06/20/24 History gram/dose oral powder (Miralax) cholecalciferol (vitamin D3) 50 50 mcg PO DAILY #30 caps 10/09/21 06/20/24 Rx mcg (2,000 unit) capsule acetaminophen 325 mg capsule 500 mg PO BID fever or pain 06/03/23 06/20/24 History (Tylenol) magnesium 200 mg tablet 200 mg PO DAILY 07/08/23 06/20/24 History melatonin 1 mg tablet 6 mg PO HS PRN Sleep 08/07/23 06/20/24 History doxepin 10 mg capsule 20 mg (2 x 10 mg) PO PM #180 caps 01/06/24 06/20/24 Rx nitroglycerin 0.4 mg sublingual 0.4 mg sublingual UD PRN Chest 04/03/24 06/20/24 Rx tablet Pain #10 tabs carbidopa 25 mg-levodopa 100 mg 1 tab PO QID 90 days #360 tabs 04/06/24 06/20/24 Rx tablet (Sinemet) carbidopa ER 50 mg-levodopa 200 mg 1.5 tab PO HS 90 days #135 tabs 04/06/24 06/20/24 Rx tablet,extended release entacapone 200 mg tablet 200 mg PO HS 30 days #30 tabs 04/06/24 06/20/24 Rx tamsulosin 0.4 mg capsule 0.4 mg PO DAILY #90 caps 04/29/24 06/20/24 Rx atorvastatin 40 mg tablet 40 mg PO DAILY #90 tabs 05/12/24 06/20/24 Rx dorzolamide 2 % eye drops 1 drp ophthalmic (eye) UD 05/14/24 06/20/24 History spironolactone 25 mg tablet 12.5 mg PO .qhs 05/14/24 06/20/24 History losartan 25 mg tablet 25 mg PO DAILY #90 tabs 05/15/24 06/20/24 Rx isosorbide mononitrate 30 mg 15 mg (1/2 x 30 mg) PO DAILY #1 tab 05/26/24 06/20/24 Rx tablet,extended release 24 hr metoprolol succinate 50 mg 50 mg PO DAILY #90 tabs 06/08/24 06/20/24 Rx tablet,extended release 24 hr Patient History Medical History Dysphagia STEMI (ST elevation myocardial infarction) (~2022) Mild depression Dysphagia Disorder of kidney and ureter, unspecified Idiopathic polyneuropathy Thoracic aortic aneurysm checked approx 2x per year> follows Dr. 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 Colonoscopy on 04/04 demonstrated tubular adenoma in the sigmoid colon. Repeat colonoscopy was recommended in 5 years (03/10). Osteoarthritis Blood vessel problems in eyes RT EYE INJECTIONS several Sleep apnea MILD (NO DEVICE NEEDED)> lost weight has helped Surgical History History of tonsillectomy History of cataract extraction R eye History of skin cancer with removal from face History of colonoscopy History of tooth extraction History of tonsillectomy History of nasal surgery SINUS SURGERY History of heart artery stent X 2 (LAST STENT PLACED 1999) History of cardiac cath CHEST PAIN (2 CATHS) History of hemorrhoidectomy History of angioplasty approx 20 yrs ago Family History Father , 75 CHF Congestive heart failure Diabetes Hypertension Grandfather (Paternal) Diabetes Brother Urinary calculus Impaired fasting glucose Prostate cancer Mother , age 85 aspiration Hypertension Denies family history of Ovarian cancer Myocardial infarction Breast cancer Lung cancer Colorectal cancer Stroke Social History Smoking Status: Unknown if ever smoked Tobacco Type: Cigars Age Started Using Tobacco: 26; Cigarettes Per Day: cigar approx q4 monthly; Second Hand Exposure: No; Do You Dip or Chew Tobacco: No; Tobacco Cessation Education Requested by Patient: No Hx Alcohol Use: No Hx Substance Use: No Preferred Language: Maori Communication Ability: Effective Visual Impairment: Limited Hearing Ability: Use of Hearing Aid Granite Block Paver Required: No Beliefs That Will Affect Care: None marital status: Current Living Situation: Spouse current occupational status: retired 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 [employer] How many Children do You have: 3 Other Information That Helps Us Care for You: No other: 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 Physical Exam Physical Exam: General: A&Ox3. NAD. HENT: Normocephalic. Atraumatic. Eyes: PER. Conjunctiva pink, sclera clear. Neck: No carotid bruits. No JVD. Heart: RRR, 70 bpm. Soft systolic ejection murmur. No diastolic murmur. No rub. No gallop. PMI is nondisplaced. Lungs: Diminished. Decrease. Clear. Abdomen: +BS. Soft. Nontender. No masses or organomegaly. Extremities: Chronic stable 1+ distal left greater than right lower extremity edema. No clubbing. No cyanosis. Limited neurological examination is without focal deficits. Pulses: radial=2/4, posterior tibial=2/4. Results & Data Vital Signs (Past 12 Hours) Vital Signs Temp Pulse Pulse Resp BP Pulse Ox O2 Del Method 06/21/24 07:57 36.7 C 69 18 134/84 91 Room Air 06/21/24 07:37 67 06/21/24 03:03 36.4 C L 68 20 117/72 93 Room Air 06/20/24 22:52 36.6 C 69 18 122/76 93 Room Air 06/20/24 22:46 69 Laboratory Results Cardiac Enzymes 06/20/24 06/20/24 06/20/24 Range/Units 12:05 14:08 16:46 AST 22 (13-39) U/L Troponin I High Sens 8.6 10.0 9.7 (0-20) pg/ml 06/20/24 06/21/24 Range/Units 21:38 04:51 AST (13-39) U/L Troponin I High Sens 9.0 13.9 D (0-20) pg/ml Coagulation 06/20/24 Range/Units 12:05 PT 11.1 (9.0-12.0) Seconds APTT 26 (21-31) Seconds CBC 06/20/24 06/21/24 Range/Units 12:05 04:51 WBC 5.23 4.67 L (4.8-10.8) K/ul RBC 4.68 L 4.33 L (4.70-6.10) M/uL Hgb 15.4 14.3 (14.0-18.0) g/dl Hct 45.0 41.6 L (42.0-52.0) % Plt Count 206 183 (130-400) K/uL Neut # (Auto) 2.79 2.55 (1.40-6.50) K/uL Lymph # (Auto) 1.76 1.56 (1.20-3.40) K/uL Emery # (Auto) 0.48 0.36 (0.11-0.59) K/uL Eos # (Auto) 0.13 0.13 (0.00-0.50) K/uL Baso # (Auto) 0.06 0.06 (0.00-0.20) K/uL Comprehensive Metabolic Panel 06/20/24 06/21/24 Range/Units 12:05 04:51 Sodium 139 137 (136-145) mmol/L Potassium 4.1 3.8 (3.5-5.1) mmol/L Chloride 107 105 (98-107) mmol/L Carbon Dioxide 25 24 (21-32) mmol/L BUN 17 19 (6-23) mg/dl Creatinine 0.94 0.94 (0.6-1.4) mg/dl Glucose 85 112 H (70-99(Fasting)) mg/dl Calcium 9.5 9.4 (8.6-10.3) mg/dl AST 22 (13-39) U/L ALT 5 L (7-52) U/L Alkaline Phosphatase 40 (34-104) U/L Total Protein 6.8 (6.0-8.3) gm/dl Albumin 4.5 4.1 (3.4-5.0) gm/dl Intake and Output 06/20/24 06/21/24 06/21/24 22:59 06:59 14:59 Intake Total 535.6 / 594.9 50 / 594.9 Output Total 500 / 775 275 / 775 Balance 35.6 / -180.1 -225 / -180.1 Intake: IV 135.6 / 144.9 Heparin Sodium/Dextrose 25,000 135.6 / 144.9 units In 500 ml @ 1,050 UNITS/ HR 21 mls/hr IV .[id number] [facility] Rx #:[id number] Oral 400 / 450 50 / 450 Output: Urine 500 / 775 275 / 775 Other: Weight 99 kg 99.1 kg Weight Measurement Method [facility] in [facility] Diagnostic Findings May 29, 2023 Coronary Angiography ([facility], as per Dr. Baxter): OLY-wxogs-sasldyp vessel bifurcating into LAD and LCx. Mild calcification and diffuse mild disease. LAD-large caliber and transapical. Proximal, mid, and early distal vessel are moderately to severely calcified. There are 3 small to medium caliber diagonal branches. These have diffuse mild disease. The LAD itself has diffuse mild to moderate disease with a focal 60 to 70% stenosis in the distal vessel. LCx-this is large caliber and nondominant. It is mildly calcified proximally. Travels in the AV groove where it gives a large branching OM1 and a medium to large branching OM 2. The vessel then appears to terminate although it does provide an atrial branch and a functional small caliber posterolateral branch arising from the OM 2. There is diffuse mild disease in the circumflex and its branches. UXE-qfbbw-fcvhwmz and presumably dominant vessel. It has severe calcification and tortuosity. There is diffuse mild to moderate disease in the proximal and mid vessel. The early distal portion of the vessel is 100% occluded with SANTOS 0 flow and stains with contrast suggesting thrombus. PCI of RCA: Despite exhaustive attempts at crossing the lesion and advancing a PTCA balloon we were unsuccessful in performing PTCA. December 16, 2023 TTE Interpretation Summary (as per Dr. Encarnacion): The left ventricular cavity size is normal. The LV wall thickness is mildly increased (concentric). There is a large sized apical, septal, inferior, and posterior wall motion abnormality with hypokinesis to akinesis of the segments. The qualitative LV ejection fraction is 40-44% (mildly reduced). The left ventricular diastolic function is mildly abnormal (grade I). Mild aortic valve sclerosis is present. Moderate aortic insufficiency is present. Mild mitral regurgitation is present. The aortic root and proximal ascending aorta are moderately enlarged. (4.3 cm/4.3 cm). In comparison to prior study LV systolic function is slightly greater. Degree of aortic insufficiency has increased.
[2024-06-21] MEDS ORDERED: MULTIVITAMIN TAB PO SCH (09:00)
--- NOTE | 2024-06-21 11:38 | Hospitalist Progress Note ---
Date of Service June 21, 2024 Assessment & Plan (1) Exertional chest pain: Plan: -Patient with exertional chest pain -Hx of UT 1 year prior- managed medically, unable to preform PCI at the time -Denies active chest pain at present -Troponin's flat on admission -EKG's remain relatively stable -Cardiology consulted; Planning for cath in the AM -NPO midnight -Monitor on Tele -Continue on heparin infusion -Continue Asa, Plavix, Lipitor, Toprol (2) CAD (coronary artery disease): Plan: -Hx of CAD -Hx of UT 1 year prior- inferior wall UT- unable to undergo PCI. Managed medically -Continue Lipitor, DAPT with Asa, Plavix -Continue on heparin infusion -Ischemic evaluation with cath in the AM (as above) (3) HTN (hypertension): Plan: -Continue Losartan, Toprol -Was started back on Spironolactone- in the past did not tolerate due to soft BP's- will monitor for tolerance -Monitor BP (4) CHF (congestive heart failure): Plan: -Continue GDMT with Losartan -As per documentation patient did not tolerate spironolactone in the past due to soft BP's- resumed while inpatient. Will monitor closely for tolerance -Follow up EF during evaluation in the AM -Continue all other cardiac med's as above (5) Hyperlipidemia: Plan: -Continue Lipitor (6) Parkinsons disease: Plan: -Continue home regimen Carbi-dopa levodopa -Continue Entacapone -Follows with outpatient provider and PT (7) Prostate cancer: Plan: -Out patient followup (8) H/O spinal fusion: (9) BPH (benign prostatic hyperplasia): Plan: -Continue Flomax Plan DVT ppx: on heparin infusion Updated over the phone Admission and Anticipated Discharge Date Admission Date: June 20, 2024 Subjective Patient seen and evaluated bedside Patient is currently in NAD Denies any active chest pain Patient reports then when preforming PT exercises or with extensive exertion he becomes short of breath. 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 NAD. HENT: Normocephalic. Atraumatic. Eyes: PER. Conjunctiva pink, sclera clear. Neck: No carotid bruits. No JVD. Heart: RRR, Soft systolic ejection murmur. No diastolic murmur. No rub. No gallop. Lungs: Clear to auscultation. No adventitious sounds noted. Abdomen: +BS. Soft. Nontender. No masses or organomegaly. Extremities: Trace BL LE edema. No clubbing. No cyanosis. Limited neurological examination is without focal deficits. Results & Data Results & Data Vital Signs (Past 12 Hours) Vital Signs Temp Pulse Pulse Resp BP Pulse Ox O2 Del Method 06/21/24 07:57 36.7 C 69 18 134/84 91 Room Air 06/21/24 07:37 67 06/21/24 03:03 36.4 C L 68 20 117/72 93 Room Air PG Care Time/CCT Total # of Minutes Spent Total Time Spent with Patient: Total time spent is greater than 50% in coordination of care (as documented) at patient's floor/unit and/or counseling patient: Coding Level of Care Code 37324 SUB INP/OBS CARE 2/35MIN Diagnoses Exertional chest pain R07.9 CAD (coronary artery disease) I25.10 HTN (hypertension) I10 CHF (congestive heart failure) I50.9 Hyperlipidemia E78.5 Parkinsons disease G20 Prostate cancer C61 H/O spinal fusion Z98.1 BPH (benign prostatic hyperplasia) N40.0
[2024-06-21] MEDS: ACETAMINOPHEN 325 MG TAB PO PRN (21:25)
[2024-06-22 08:36] VITALS: TEMP 98.1
[2024-06-22 08:56] LABS: Basophils # (auto) 0.05 K/uL (0.00-0.20); Basophils % (auto) 1.1 %; Eosinophils % (auto) 2.2 %; Hematocrit (blood only) 44.9 % (42.0-52.0); Hemoglobin 15.4 g/dl (14.0-18.0); Immature Granulocytes # (auto) 0.01 K/uL (0.01-0.20); Immature Granulocytes % (auto) 0.2 %; Lymphocytes # (auto) 1.18 K/uL (1.20-3.40); Lymphocytes % (auto) 25.8 %; Mean Corpuscular Hgb Conc 34.3 g/dL (32.0-36.0); Mean Corpuscular Volume 96.1 fL (80.0-100.0); Mean Platelet Volume 8.8 fL (9.4-12.4); Monocytes # (auto) 0.33 K/uL (0.11-0.59); Monocytes % (auto) 7.2 %; Neutrophils % (auto) 63.5 %; Platelet Count 202 K/uL (130-400); RDW Coefficient of Variation 11.9 % (11.5-14.5); RDW Standard Deviation 41.5 fL (36.4-46.3); Red Blood Count 4.67 M/uL (4.70-6.10); White Blood Count 4.57 K/ul (4.8-10.8)
[2024-06-22 09:05] LABS: ANTI-Xa, UFH(UnfractionatedHep 0.31 IU/ml (0.3-0.7)
[2024-06-22 09:18] LABS: Albumin Level 4.6 gm/dl (3.4-5.0); Calcium 9.5 mg/dl (8.6-10.3)
[2024-06-22 09:24] LABS: BUN Creatinine Ratio 22.7 (10-20); Creatinine Clr Calc Pharmacy 69.8 ml/min; Est GFR (African American) 93.4 ml/min; Est GFR (Non-African American) 80.6 ml/min; Phosphorus 2.8 mg/dl (2.5-4.9)
--- NOTE | 2024-06-22 10:50 | Pre Anesthesia Assessment ---
Date of Service June 22, 2024 Pre Sedation Assessment Vital Signs Temp Pulse Pulse Resp BP Pulse Ox O2 Del Method 06/22/24 09:53 70 18 121/80 93 Room Air 06/22/24 08:35 36.7 C 72 17 149/83 H 93 Room Air 06/22/24 07:33 64 06/22/24 04:44 36.5 C 64 17 114/76 95 Room Air 06/22/24 00:03 36.4 C L 61 17 120/59 L 95 Room Air 06/21/24 21:40 65 06/21/24 20:36 36.6 C 52 L 18 126/68 92 Room Air 06/21/24 16:20 73 06/21/24 15:13 36.6 C 71 18 122/80 93 Room Air 06/21/24 12:14 36.6 C 68 18 119/80 94 Room Air Cardiovascular RRR, no murmur, no edema Respiratory normal respiratory effort, lungs clear to auscultation Pre-Sedation Airway Assessment Smoking Status: Unknown if ever smoked Short, Thick Neck: No Thyromental Distance: > or= 3.5 Finger Breadths Oral Cavity: + Dentures Mallampati Class: II ASA: ASA3 NPO Status Date of Last Intake of Fluids: 06/21/24 Time of Last Intake of Fluids: 18:00 Date of Last Intake of Solid Food: 06/21/24 Time of Last Intake of Solid Foods: 18:00 Notes The planned sedation has been discussed with the patient. Informed Consent was obtained. I have identified the patient, determined the appropriateness of sedation and have assessed the patient immediately prior to the procedure. All medicine(s) and interventions are by my order.
[2024-06-22] MEDS: fentaNYL citrate PF 100 MCG/2 ML VIAL ONE (11:20)
[2024-06-22] MEDS: MIDAZOLAM HCL 1 MG/ML 2ML VIAL ONE (11:20)
[2024-06-22] MEDS: niCARdipine HCL INJ 2.5 MG/ML 10 ML AMP ONE (11:20)
[2024-06-22] MEDS: HEPARIN (PORCINE) 1000 UNIT/ML 10 ML (CATH LAB USE ONLY) ONE (11:20)
[2024-06-22] MEDS: NITROGLYCERIN/D5W 100MCG/ML 20ML SYR ONE (11:21)
[2024-06-22] MEDS: OPTIRAY 350 ONE (11:21)
--- NOTE | 2024-06-22 11:35 | Post Anesthesia Assessment ---
Date of Service June 22, 2024 Post Sedation Assessment Vital Signs Temp Pulse Pulse Resp BP Pulse Ox O2 Del Method 06/22/24 09:53 70 18 121/80 93 Room Air 06/22/24 08:35 36.7 C 72 17 149/83 H 93 Room Air 06/22/24 07:33 64 06/22/24 04:44 36.5 C 64 17 114/76 95 Room Air 06/22/24 00:03 36.4 C L 61 17 120/59 L 95 Room Air 06/21/24 21:40 65 06/21/24 20:36 36.6 C 52 L 18 126/68 92 Room Air 06/21/24 16:20 73 06/21/24 15:13 36.6 C 71 18 122/80 93 Room Air 06/21/24 12:14 36.6 C 68 18 119/80 94 Room Air Recovery Score Activity: Moves 4 extremities Respiration: Deep Breath/Cough Circulation: +/-20% PreAnes Value Consciousness: Fully Awake Oxygen Saturation: > 92% On Room Air Discharge Sedation Level of Care: Fast Track Phase II Post Sedation Plan On clinical assessment, the patient appears to have tolerated the sedation without complications. Patient is recovering as anticipated. Patient will continue to be monitored by nursing and may be discharged when sedation discharge criteria are met per below protocol. Upon Completions of procedure up to 15 minutes continue every 5 minute vital signs and the P.A.R. score; then discharge to a Phase I or Fast Track to Phase II per the following guidelines: * Discharge Patient to appropriate Phase II area if PAR is 8 or greater or return to pre- procedure baseline. The post - procedure orders will be as directed. * If PAR score is less than 8 or not return to pre-procedure baseline then patient will follow Phase I monitoring till PAR is reached for Phase II. The Phase I may be done in procedure room or may call to secure a Phase I area. * If naloxone or flumazenil are used for reversal, hold in Phase I for continued monitoring from when last reversal dose was given for a minimum of 60 minutes or longer pending the nurse and/or physician discretion of patient condition before discharge to Phase II. Please call the Sedation Physician to re-evaluate and complete post-note for discharge to Phase II area. Do NOT discharge from procedure sedation or Phase 1 until post- sedation evaluation note is complete by procedure /sedation MD Sedation Discharge Instructions to be given to the patient at discharge to home. [facility] Procedure Codes (Charges) Indication for Procedure Indication for procedure: UNSTABLE ANGINA Sedation/Anesthesia Procedure 1: Sedation/Anesthesia: 83782 Mod Sedation by the same physician;Init15 Min Child Age 5 & Up (INITIAL 15 MIN, START TIME 1102) Total Sedation Time (minutes): 18 Procedure 2: Sedation/Anesthesia: 99629 Mod Sedation by the same physician; Ea [id number] Minutes (ADDITIONAL 3 MIN, END 1120) Total Sedation Time (minutes): 18
--- NOTE | 2024-06-22 13:19 | Cardiology Progress Note ---
Date of Service June 22, 2024 Assessment & Plan (1) Unstable angina: (2) Exertional chest pain: (3) CAD (coronary artery disease): (4) Thoracic aortic aneurysm: (5) Aortic root enlargement: (6) Hyperlipidemia: (7) Parkinsons disease: (8) Aortic insufficiency: Plan Complex 83-year-old male admitted with chest discomfort high concerning for unstable angina. EKG without acute change. High-sensitivity troponin within normal range. Chest x-ray clear. Creatinine normal. June 22, 2024 June 22, 2024 coronary angiography with an occluded RCA with left to right collaterals, distal LAD and diagonal branch with severe disease not amendable to PCI. Recommendations: Aspirin 81 mg/day Clopidogrel 75 mg/day Metoprolol succinate 50 mg/day Increase Isosorbide to 60 mg/day (currently taking 30 mg/day) Atorvastatin 40 mg/day Losartan 12.5 mg/day (hold if hypotension observed with uptitration of isosorbide) Spironolactone 25 mg/day (not 12.5 mg/day as listed here at [facility]) PRN Sublingual nitroglycerin Outpatient cardiology follow-up (church secretary notified, to be seen in the next few weeks) Admission and Anticipated Discharge Date Admission Date: June 20, 2024 Supervising Physician Co-Signing Physician Notes Patient seen and personally examined, chart, medications telemetry reviewed. Full assessment and plan as outlined above. Management discussed with advanced provider and personally endorsed 83-year-old male presenting with symptoms consistent with crescendo angina culminating in rest chest pain date of admission. No evidence of acute myocardial infarction by enzyme or EKG criteria. Exam: Right fem artery cath site clean dry and intact with no hematoma Cardiac catheterization films reviewed independently and case discussed with interventional cardiology, Dr Baxter. No culprits for revascularization. Continue medical management with medication changes as noted above. Stable for discharge tonight after he completes post cath recovery protocol . Milagro Abdi DO Subjective Patient seen and examined. Chart, medications, and telemetry reviewed. Patient evaluated earlier this afternoon, post catheterization with preliminary angiography results discussed. Plan is for medical management. Review of Systems Review of Systems: Complete Review of Systems is otherwise as stated above, negative or noncontributory. Physical Exam Physical Exam: General: A&Ox3. NAD. Laying supine. HENT: Normocephalic. Atraumatic. Eyes: PER. Conjunctiva pink, sclera clear. Neck: No JVD. Heart: RRR, 66 bpm. Soft systolic ejection murmur. Lungs: Clear anteriorly. Abdomen: +BS. Extremities: Chronic stable distal 1+ lower extremity edema. No clubbing. No cyanosis. Neuro: No focal deficits. Results & Data Vital Signs (Past 12 Hours) Vital Signs Temp Pulse Pulse Resp BP Pulse Ox O2 Del Method 06/22/24 12:45 62 16 112/68 06/22/24 12:19 61 19 105/63 94 Room Air 06/22/24 12:00 55 L 16 94/52 L 06/22/24 11:43 57 L 18 95/63 L 93 Room Air 06/22/24 11:30 57 L 18 110/66 93 Room Air 06/22/24 09:53 70 18 121/80 93 Room Air 06/22/24 08:35 36.7 C 72 17 149/83 H 93 Room Air 06/22/24 07:33 64 06/22/24 04:44 36.5 C 64 17 114/76 95 Room Air Laboratory Results CBC 06/22/24 Range/Units 08:35 WBC 4.57 L (4.8-10.8) K/ul RBC 4.67 L (4.70-6.10) M/uL Hgb 15.4 (14.0-18.0) g/dl Hct 44.9 (42.0-52.0) % Plt Count 202 (130-400) K/uL Neut # (Auto) 2.90 (1.40-6.50) K/uL Lymph # (Auto) 1.18 L (1.20-3.40) K/uL [place] # (Auto) 0.33 (0.11-0.59) K/uL Eos # (Auto) 0.10 (0.00-0.50) K/uL Baso # (Auto) 0.05 (0.00-0.20) K/uL Comprehensive Metabolic Panel 06/22/24 Range/Units 08:35 Sodium 139 (136-145) mmol/L Potassium 4.0 (3.5-5.1) mmol/L Chloride 106 (98-107) mmol/L Carbon Dioxide 26 (21-32) mmol/L BUN 20 (6-23) mg/dl Creatinine 0.88 (0.6-1.4) mg/dl Glucose 109 H (70-99(Fasting)) mg/dl Calcium 9.5 (8.6-10.3) mg/dl Albumin 4.6 (3.4-5.0) gm/dl Intake and Output 06/21/24 06/22/24 06/22/24 22:59 06:59 14:59 Intake Total 91 / 775.15 253.05 / 253.05 Balance 775.15 253.05 / 253.05 Intake: IV / 430.15 253.05 / 253.05 Heparin Sodium/Dextrose 25,000 / 430.15 253.05 / 253.05 units In 500 ml @ 1,050 UNITS/ HR 21 mls/hr IV .[id number] [facility] Rx #:[id number] Oral 0 Other: # Unmeasured Voids 1 Weight 98.7 kg Diagnostic Findings Telemetry: Sinus with occasional ventricular ectopy, heart rates primarily in the 70's.
[2024-06-22 15:20] VITALS: RESP 18; O2SAT 92
--- NOTE | 2024-06-22 16:15 | Communication Note ---
Date of Service: June 22, 2024 Chronic systolic CHF 83-year-old male who presents with presumed unstable angina. Echocardiogram completed in May 2023 showed an LVEF of 40 to 44% with inferior, posterior, lateral wall abnormalities with akinesis. Risk Factor(s): Age, history of STEMI, ischemic heart disease Treatment: Telemetry, daily weights, I's and O's, losartan, Toprol, isosorbide monohydrate, cardiology consultation,
--- NOTE | 2024-06-22 16:17 | Discharge Summary ---
Discharge Summary Date of Service June 22, 2024 Principal Dx & Hospital Course #1 = Principal Diagnosis (1) Exertional chest pain: -Patient with exertional chest pain -Hx of AK 1 year prior- managed medically, unable to preform PCI at the time -Denies active chest pain at present -Troponin's flat on admission -EKG's remain relatively stable -Cardiology consulted; Planning for cath in the AM -NPO midnight -Monitor on Tele -Continue on heparin infusion -Continue Asa, Plavix, Lipitor, Toprol (2) CAD (coronary artery disease): -Hx of CAD -Hx of AK 1 year prior- inferior wall AK- unable to undergo PCI. Managed medically -Continue Lipitor, DAPT with Asa, Plavix -Continue on heparin infusion -Ischemic evaluation with cath in the AM (as above) (3) HTN (hypertension): -Continue Losartan, Toprol -Was started back on Spironolactone- in the past did not tolerate due to soft BP's- will monitor for tolerance -Monitor BP (4) CHF (congestive heart failure): Chronic systolic CHF -Continue GDMT with Losartan -As per documentation patient did not tolerate spironolactone in the past due to soft BP's- resumed while inpatient. Will monitor closely for tolerance -Follow up EF during evaluation in the AM -Continue all other cardiac med's as above (5) Hyperlipidemia: -Continue Lipitor (6) Parkinsons disease: -Continue home regimen Carbi-dopa levodopa -Continue Entacapone -Follows with outpatient provider and PT (7) Prostate cancer: -Out patient followup (8) H/O spinal fusion: (9) BPH (benign prostatic hyperplasia): -Continue Flomax Plan DVT ppx: on heparin infusion Updated over the phone Admission HPI Per Admitting Provider The patient is an 83-year-old male medical history including CAD, hypertension, CHF, thoracic aortic aneurysm lipidemia, Parkinson's disease, prostate cancer, gait disturbance, lumbar spinal stenosis and sacroiliitis. He presents to the emergency department after developing worsening left upper sternal chest pain after increasing his level of physical activity over the past few weeks and attempts to get ready for a Parkinson's exercise class. The pain does not radiate into her shoulder or neck. He spoke with his driftman, who recommended patient come to the ED. Updated Medication List Medication Instructions Recorded Confirmed Type aspirin 81 mg tablet,delayed 81 mg PO HS 01/27/19 06/20/24 History release (Aspir-Low) clopidogrel 75 mg tablet (Plavix) 75 mg PO QAM 01/27/19 06/20/24 History saw palmetto 500 mg capsule 1 cap PO BID 01/27/19 06/20/24 History multivitamin (Daily Multi-Vitamin 1 tab PO QAM 11/21/20 06/20/24 History tablet) omega-3 fatty acids 1,000 mg 1,000 mg PO QAM 11/21/20 06/20/24 History capsule (Fish Oil Concentrate) cyanocobalamin (vitamin B-12) 1,000 mcg IM MONTHLY #1 mL 02/15/21 06/20/24 Rx 1,000 mcg/mL injection solution polyethylene glycol 3350 17 17 g PO DAILY PRN Other 05/11/21 06/20/24 History gram/dose oral powder (Miralax) cholecalciferol (vitamin D3) 50 50 mcg PO DAILY #30 caps 10/09/21 06/20/24 Rx mcg (2,000 unit) capsule acetaminophen 325 mg capsule 500 mg PO BID fever or pain 06/03/23 06/20/24 History (Tylenol) magnesium 200 mg tablet 200 mg PO DAILY 07/08/23 06/20/24 History melatonin 1 mg tablet 6 mg PO HS PRN Sleep 08/07/23 06/20/24 History doxepin 10 mg capsule 20 mg (2 x 10 mg) PO PM #180 caps 01/06/24 06/20/24 Rx nitroglycerin 0.4 mg sublingual 0.4 mg sublingual UD PRN Chest 04/03/24 06/20/24 Rx tablet Pain #10 tabs carbidopa 25 mg-levodopa 100 mg 1 tab PO QID 90 days #360 tabs 04/06/24 06/20/24 Rx tablet (Sinemet) carbidopa ER 50 mg-levodopa 200 mg 1.5 tab PO HS 90 days #135 tabs 04/06/24 06/20/24 Rx tablet,extended release entacapone 200 mg tablet 200 mg PO HS 30 days #30 tabs 04/06/24 06/20/24 Rx tamsulosin 0.4 mg capsule 0.4 mg PO DAILY #90 caps 04/29/24 06/20/24 Rx atorvastatin 40 mg tablet 40 mg PO DAILY #90 tabs 05/12/24 06/20/24 Rx dorzolamide 2 % eye drops 1 drp ophthalmic (eye) UD 05/14/24 06/20/24 History spironolactone 25 mg tablet 12.5 mg PO .qhs 05/14/24 06/20/24 History losartan 25 mg tablet 25 mg PO DAILY #90 tabs 05/15/24 06/20/24 Rx isosorbide mononitrate 30 mg 15 mg (1/2 x 30 mg) PO DAILY #1 tab 05/26/24 06/20/24 Rx tablet,extended release 24 hr metoprolol succinate 50 mg 50 mg PO DAILY #90 tabs 06/08/24 06/20/24 Rx tablet,extended release 24 hr Hospital Stay Data Consultations 06/20/24 14:11 ED Decision to Admit Stat 06/20/24 15:57 Consult Cardiology Routine Procedures Performed Operation Date: 06/22/24 15:00 <No data on this case meets the specified criteria> Diagnostic Imagining Performed 06/22/24 07:00 CL Cath Imgs for PACS use only Routine Coding Diagnoses Exertional chest pain R07.9 CAD (coronary artery disease) I25.10 HTN (hypertension) I10 CHF (congestive heart failure) I50.9 Hyperlipidemia E78.5 Parkinsons disease G20 Prostate cancer C61 H/O spinal fusion Z98.1 BPH (benign prostatic hyperplasia) N40.0
[2024-06-22 16:54] VITALS: BP 112/68; PULSE 64
[2024-06-23] MEDS ORDERED: ENOXAPARIN INJ 40 MG/0.4 ML SYR SQ SCH (09:00)
--- NOTE | 2024-06-23 10:39 | Cardiac Catheterization ---
[facility] Data: Talent Development Consultant Cardiac Status Clinical evaluation leading to the procedure CAD Presenation: Unstable angina Anginal Classification: CCS III Heart Failure: No Cardiogenic Shock within 24 Hours: No Cardiac Arrest within 24 Hours: No Imaging Studies Past 6 Months: No Coronary Anatomy Dominant: Right Left Main (% Stenosis): Distal (20%) LAD (% Stenosis): Proximal (Heavy calcification less than 30% stenosis), Mid (Calcification but no stenosis) and Distal (Focal 70 to 80% stenosis not amenable to PCI) D1 (% Stenosis): Ostial (95%) D2 (% Stenosis): Normal D3 (% Stenosis): Normal Circumflex (% Stenosis): Proximal (Mild disease) OM1 (% Stenosis): Normal OM2 (% Stenosis): Normal RCA (% Stenosis): Proximal (Stent patent, heavy calcification then up to 60 to 70% narrowing) and Mid (Diffuse severe disease then late 100% PRINCIPAL SCIENTIST) R PDA (% Stenosis): Normal (Fills via left to right collateralization) R PL1 (% Stenosis): Normal (Fills via [id number] collateralization) Diagnostic Physicians Name: Lionel Baxter MD, PhD Closure Device Percutaneous Entry Location: Femoral Closure Device: Angio-Seal Recommendations: Medical Therapy and/or Counseling Cardiac Cath Procedure Full Procedure Date June 22, 2024 Pre-Procedure Diagnosis Pre-Procedure Diagnosis: Angina AUC Score AUC Score: 07 Post-Procedure Diagnosis Post-Procedure Diagnosis: Severe CAD Procedure(s) Performed Procedure(s) Performed: Coronary Angiography, Ultrasound Guided Vascular Access and Femoral Artery Angiography Digital Composer Lionel Baxter MD, PhD Estimated Blood Loss Estimated Blood Loss: Less than 10 cc Medication(s) Medication(s): Fentanyl, Lidocaine 1% and Versed Summary of Findings Brief description: Patient was brought to the cardiac catheterization suite where he was shaved and prepped in a sterile fashion. Sedated using IV Versed and fentanyl. Soft tissues of the right groin were anesthetized using 10 mL of 1% Xylocaine. Using ultrasound for guidance (image saved), right femoral artery was accessed and a 5 Afghan femoral artery sheath was placed. All catheters were advanced and exchanged over a 0.035 J-tip wire. Left coronary angiography in orthogonal views with a 5 Afghan JL 5.0 diagnostic catheter. Right coronary angiography in orthogonal views with a 5 Afghan JR4 diagnostic catheter. Catheters were removed. Limited right femoral artery angiography was performed to evaluate for closure. Findings were favorable, therefore, the femoral artery sheath was exchanged for a 6 Afghan Angio-Seal closure device. This was deployed in the recommended fashion. We obtained immediate hemostasis and the patient remained h emodynamically stable. He was returned to the recovery area in stable condition. This ended the case. Coronary angiography findings: LMT-large caliber vessel bifurcating into LAD and circumflex. Up to 20% stenosis distally. LAD-large caliber and transapical. Proximal segment has heavy calcification with mild less than 30% stenosis. He gives a small caliber first diagonal which has ostial 95% stenosis. Mid LAD is also heavily calcified but without significant stenosis. There is small to medium caliber second and third diagonals. The early distal LAD has heavy calcification and then calcification becomes moderate beyond that. As the vessel becomes smaller and approaches the apex there is a calcified 70 to 80% stenosis. Poor target for PCI. LCx-large caliber and possibly codominant. Proximal segment with mild to moderate calcification provides a large multi branching OM1 which also has moderate calcification and diffuse mild disease. AV groove vessel in the midsegment has mild calcification and terminates after a medium caliber branching OM 2. Circumflex provides left to right collateralization. RCA-large caliber and dominant vessel. There appears to be a previously placed stent proximally and there is heavy calcification throughout the proximal segment. Up to 60 to 70% stenosis. The RCA is very tortuous and rapidly declined in caliber becoming severely diseased then 100% occluded. This is a chronic total occlusion. PDA and posterolateral branches fill via [id number] collateralization. Summary: 1. Severe coronary artery disease with PRINCIPAL SCIENTIST of the RCA. Moderate nonocclusive coronary disease elsewhere as described. No significant change from prior coronary angiography. 2. Continue guideline directed medical therapy for secondary prevention of coronary artery disease per primary mother superior. 3. Patient has known thoracic aortic aneurysm. Surveillance imaging recommended. At this point the patient does not have surgical coronary disease but in the future may require revascularization if the aorta is repaired. Hemodynamics Rest Ao:: 90/59 mmHg Final Ao: 99/62 mmHg LV: Not performed Recommendations Recommendations: Medical Therapy and/or Counseling Radiation Exposure (mGy) 1395 mGy, fluoroscopy time 3.1 minutes Contrast (mls) 100 cc Anesthesia 1 mg Versed, 25 mcg fentanyl IV. Start 1102, end 1120 Procedural Complication(s) None Disposition Talent Development Consultant Holding/Recovery I attest to the content of the Intraoperative Record and any orders documented therein. Any exceptions are noted below. [facility] Card Cath Procedure Codes Cardiac Catheterization Procedure 1: Cardiovascular Cath Procedures: 72223 Coronaries Therapeutic Services & Ancillary Procedure 1: Cardiovascular Tx and Anc Procedures: 52822 Ultrasonic Guidance Vascular Access Moderate Sedation Procedure 1: Sedation/Anesthesia: 78839 Mod Sedation by the same physician;Init15 Min Child Age 5 & Up (Initial 15 minutes, start time 1102) Procedure 2: Sedation/Anesthesia: 37779 Mod Sedation by the same physician; Ea [id number] Minutes (Additional 3 min, end time 1120) PG Care Time/CCT Total # of Minutes Spent Total Time Spent with Patient: Total time spent is greater than 50% in coordination of care (as documented) at patient's floor/unit and/or counseling patient:
== END 2024-06-22 17:30 | disposition home or self-care (01) | DRG 287 ==
LOC: ED 11:45 → SUATTDRO 14:28 → 4W 14:28
PROC: CLB.CCO (2024-06-22 10:00)